=== PATIENT | male | born 1955 | race Caucasian/White ===

== ENCOUNTER 2018-03-01 23:07 | Inpatient (IN) | payer OTHER ==
[2018-03-01] MEDS ORDERED: SODIUM CHLORIDE 0.9% 500 ML 500 ML IV ONE (23:47)
[2018-03-01] MEDS ORDERED: METOCLOPRAMIDE 5 MG/ML 2 ML VIAL IVP STA (23:49)
[2018-03-01] MEDS ORDERED: diphenhydrAMINE 50 MG/ML 1 ML VIAL IVP STA (23:50)
--- NOTE | 2018-03-01 23:53 | ED ---
General Adult HPI - General Chief complaint: Neuro Symptoms/Deficit Stated complaint: Headache Time Seen by Provider: 03/01/18 23:38 Source: patient, EMS, RN notes reviewed, old records reviewed Mode of arrival: EMS Limitations: no limitations - History of Present Illness Initial comments: 62-year-old male with history of previous CVA presents with headache. Patient is accompanied by family members who stays been under a lot of stress and has not been sleeping well. He does have history of stroke and is currently on aspirin and Plavix. He also has chronic headaches which are predominantly left frontal. He has a headache which is left frontal today however more severe than typical. This began at approximately 1900. Gradual in onset. Patient is currently on Depakote, Topamax and medication for blood pressure in addition to his aspirin and Plavix. Denies focal numbness or weakness. Denies nausea vomiting. States he has been eating and drinking normally. No fever. No cough or chest pain. No abdominal pain. Patient is alert and oriented at the time my evaluation. He also states that he has history of congestive heart failure, he is scheduled for heart catheterization in March. Denies any chest pain today or within the last week. - Related Data Allergies Allergy/AdvReac Type Severity Reaction Status Date / Time No Known Allergies Allergy Verified 03/01/18 23:25 Review of Systems ROS Statement: Those systems with pertinent positive or pertinent negative responses have been documented in the HPI. ROS Other: All systems not noted in ROS Statement are negative. Past Medical History Past Medical History: Myocardial Infarction ([place]) Additional Past Medical History / Comment(s): 3 ruptured spine discs, 2 heart stents, stroke. History of Any Multi-Drug Resistant Organisms: None Reported Past Surgical History: No Surgical Hx Reported Smoking Status: Current every day smoker Past Alcohol Use History: Occasional Past Drug Use History: None Reported General Exam Limitations: no limitations General appearance: alert, in no apparent distress Head exam: Present: atraumatic, normocephalic Eye exam: Present: normal appearance, PERRL, EOMI ENT exam: Present: normal exam Neck exam: Present: normal inspection. Absent: tenderness, meningismus Respiratory exam: Present: normal lung sounds bilaterally. Absent: respiratory distress, wheezes Cardiovascular Exam: Present: regular rate, normal rhythm GI/Abdominal exam: Present: soft. Absent: distended, tenderness, guarding Extremities exam: Present: normal inspection, normal capillary refill. Absent: pedal edema Neurological exam: Present: alert, oriented X3, CN II-XII intact, normal gait. Absent: motor sensory deficit Psychiatric exam: Present: normal affect, normal mood Skin exam: Present: warm, dry, intact. Absent: cyanosis, diaphoretic Course Vital Signs 03/01/18 03/02/18 23:10 01:56 Temperature 98.1 F Pulse Rate 69 65 Respiratory 18 19 Rate Blood Pressure 141/85 132/81 O2 Sat by Pulse 97 Oximetry EKG Findings - EKG Comments: EKG Findings:: EKG: Normal sinus rhythm, rate is 64, MS interval 156, QRS duration 86, QTC 470, no ST segment changes. Medical Decision Making - Medical Decision Making 62-year-old male presenting with chief complaint headache patient is well- appearing, stable vitals, normal neurologic exam. He has previous CVA and history of heart failure. He states he is scheduled for heart cath in March. Workup in the emergency is initiated for both headache and cardiac workup. Patient has had CT showing encephalomalacia, unchanged from prior MRI, no acute intracranial abnormality. Patient has leukocytosis 15.9, on certain of the significance of this at this time. As patient was scheduled for heart catheterization and has history of heart failure EKG and troponin is obtained, EKG is nonischemic, troponin is elevated. Patient is clinically not in heart failure x-ray is negative for pulmonary edema or effusion. Patient is informed of this abnormality, he is certain he's had no chest pain over the past one week. Given that the patient is scheduled for heart catheterization in March will keep the patient on hospital for trended enzymes, and cardiology consultation. He will be kept on telemetry. He is started on heparin. - Lab Data Result diagrams: 03/02/18 00:00 03/02/18 00:01 Lab Results 03/02/18 03/02/18 03/02/18 Range/Units 00:00 00:00 00:01 WBC 15.9 H (3.8-10.6) k/uL RBC 4.33 (4.30-5.90) m/uL Hgb 13.8 (13.0-17.5) gm/dL Hct 41.1 (39.0-53.0) % MCV 94.9 (80.0-100.0) fL MCH 32.0 (25.0-35.0) pg MCHC 33.7 (31.0-37.0) g/dL RDW 13.0 (11.5-15.5) % Plt Count 202 (150-450) k/uL Neutrophils % 72 % Lymphocytes % 22 % Monocytes % 4 % Eosinophils % 1 % Basophils % 0 % Neutrophils # 11.4 H (1.3-7.7) k/uL Lymphocytes # 3.5 (1.0-4.8) k/uL Monocytes # 0.7 (0-1.0) k/uL Eosinophils # 0.1 (0-0.7) k/uL Basophils # 0.0 (0-0.2) k/uL PT 9.9 (9.0-12.0) sec INR 0.9 (<1.2) APTT 26.0 (22.0-30.0) sec Sodium (137-145) mmol/L Potassium (3.5-5.1) mmol/L Chloride (98-107) mmol/L Carbon Dioxide (22-30) mmol/L Anion Gap mmol/L BUN (9-20) mg/dL Creatinine (0.66-1.25) mg/dL Est GFR (CKD-EPI)AfAm (>60 ml/min/1.73 sqM) Est GFR (CKD-EPI)NonAf (>60 ml/min/1.73 sqM) Glucose (74-99) mg/dL Calcium (8.4-10.2) mg/dL Total Bilirubin (0.2-1.3) mg/dL AST (17-59) U/L ALT (21-72) U/L Alkaline Phosphatase (38-126) U/L Ammonia (<30) umol/L Total Creatine Kinase 143 (55-170) U/L CK-MB (CK-2) 2.0 (0.0-2.4) ng/mL CK-MB (CK-2) Rel Index 1.4 Troponin I 0.190 H* (0.000-0.034) ng/mL Total Protein (6.3-8.2) g/dL Albumin (3.5-5.0) g/dL Urine Color Urine Appearance (Clear) Urine pH (5.0-8.0) Ur Specific [place] (1.001-1.035) Urine Protein (Negative) Urine Glucose (UA) (Negative) Urine Ketones (Negative) Urine Blood (Negative) Urine Nitrite (Negative) Urine Bilirubin (Negative) Urine Urobilinogen (<2.0) mg/dL Ur Leukocyte Esterase (Negative) Urine RBC (0-5) /hpf Urine WBC (0-5) /hpf Ur Squamous Epith Cells (0-4) /hpf Urine Mucus (None) /hpf Urine Opiates Screen (NotDetected) Ur Oxycodone Screen (NotDetected) Urine Methadone Screen (NotDetected) Ur Propoxyphene Screen (NotDetected) Ur Barbiturates Screen (NotDetected) U Tricyclic Antidepress (NotDetected) Ur Phencyclidine Scrn (NotDetected) Ur Amphetamines Screen (NotDetected) U Methamphetamines Scrn (NotDetected) U Benzodiazepines Scrn (NotDetected) Urine Cocaine Screen (NotDetected) U Marijuana (THC) Screen (NotDetected) Serum Alcohol mg/dL 03/02/18 03/02/18 03/02/18 Range/Units 00:01 00:01 23:50 WBC (3.8-10.6) k/uL RBC (4.30-5.90) m/uL Hgb (13.0-17.5) gm/dL Hct (39.0-53.0) % MCV (80.0-100.0) fL MCH (25.0-35.0) pg MCHC (31.0-37.0) g/dL RDW (11.5-15.5) % Plt Count (150-450) k/uL Neutrophils % % Lymphocytes % % Monocytes % % Eosinophils % % Basophils % % Neutrophils # (1.3-7.7) k/uL Lymphocytes # (1.0-4.8) k/uL Monocytes # (0-1.0) k/uL Eosinophils # (0-0.7) k/uL Basophils # (0-0.2) k/uL PT (9.0-12.0) sec INR (<1.2) APTT (22.0-30.0) sec Sodium 138 (137-145) mmol/L Potassium 3.8 (3.5-5.1) mmol/L Chloride 104 (98-107) mmol/L Carbon Dioxide 23 (22-30) mmol/L Anion Gap 11 mmol/L BUN 18 (9-20) mg/dL Creatinine 0.62 L (0.66-1.25) mg/dL Est GFR (CKD-EPI)AfAm >90 (>60 ml/min/1.73 sqM) Est GFR (CKD-EPI)NonAf >90 (>60 ml/min/1.73 sqM) Glucose 100 H (74-99) mg/dL Calcium 9.2 (8.4-10.2) mg/dL Total Bilirubin 0.5 (0.2-1.3) mg/dL AST 24 (17-59) U/L ALT 31 (21-72) U/L Alkaline Phosphatase 79 (38-126) U/L Ammonia 38 H (<30) umol/L Total Creatine Kinase (55-170) U/L CK-MB (CK-2) (0.0-2.4) ng/mL CK-MB (CK-2) Rel Index Troponin I (0.000-0.034) ng/mL Total Protein 7.0 (6.3-8.2) g/dL Albumin 4.4 (3.5-5.0) g/dL Urine Color Light Yellow Urine Appearance Clear (Clear) Urine pH 7.0 (5.0-8.0) Ur Specific [place] 1.008 (1.001-1.035) Urine Protein Negative (Negative) Urine Glucose (UA) Negative (Negative) Urine Ketones Negative (Negative) Urine Blood Small H (Negative) Urine Nitrite Negative (Negative) Urine Bilirubin Negative (Negative) Urine Urobilinogen <2.0 (<2.0) mg/dL Ur Leukocyte Esterase Negative (Negative) Urine RBC 4 (0-5) /hpf Urine WBC <1 (0-5) /hpf Ur Squamous Epith Cells <1 (0-4) /hpf Urine Mucus Rare H (None) /hpf Urine Opiates Screen Not Detected (NotDetected) Ur Oxycodone Screen Not Detected (NotDetected) Urine Methadone Screen Not Detected (NotDetected) Ur Propoxyphene Screen Not Detected (NotDetected) Ur Barbiturates Screen Not Detected (NotDetected) U Tricyclic Antidepress Not Detected (NotDetected) Ur Phencyclidine Scrn Not Detected (NotDetected) Ur Amphetamines Screen Not Detected (NotDetected) U Methamphetamines Scrn Not Detected (NotDetected) U Benzodiazepines Scrn Not Detected (NotDetected) Urine Cocaine Screen Not Detected (NotDetected) U Marijuana (THC) Screen Not Detected (NotDetected) Serum Alcohol <10 mg/dL Disposition Clinical Impression: Troponin level elevated, Headache Disposition: ADMITTED IP TO THIS [facility] Condition: Stable Is patient prescribed a controlled substance at d/c from ED?: No Referrals: Felipa Weber MD [Primary Care Provider] - 1-2 days Decision to Admit Reason: Admit from EC Decision Date: 03/02/18 Decision Time: 03:22
[2018-03-02 00:26] LABS: Basophils % (A) 0 %; Eosinophils # (A) 0.1 k/uL (0-0.7); Eosinophils % (A) 1 %; HCT 41.1 % (39.0-53.0); HGB 13.8 gm/dL (13.0-17.5); Lymphocytes # (A) 3.5 k/uL (1.0-4.8); Lymphocytes % (A) 22 %; MCHC 33.7 g/dL (31.0-37.0); MCV 94.9 fL (80.0-100.0); Mean Platelet Volume 7.6; Monocytes # (A) 0.7 k/uL (0-1.0); Monocytes % (A) 4 %; Neutrophils # (A) 11.4 k/uL (1.3-7.7); Neutrophils % (A) 72 %; Platelet Count 202 k/uL (150-450); RBC 4.33 m/uL (4.30-5.90); WBC 15.9 k/uL (3.8-10.6)
--- NOTE | 2018-03-02 00:27 | XR ---
EXAMINATION TYPE: XR chest 2V DATE OF EXAM: 03/02/2018 COMPARISON: NONE HISTORY: Dizziness and headache TECHNIQUE: Frontal and lateral views of the chest are obtained. FINDINGS: Heart and mediastinum are normal. Lungs are clear. Diaphragm is normal. Bony thorax is int act. There are chest leads. IMPRESSION: Normal chest
[2018-03-02 00:31] LABS: Appearance,Urine Clear (Clear); Bilirubin,Urine Negative (Negative); Blood,Urine Small (Negative); Color,Urine Light Yellow; Glucose,Urine (UA) Negative (Negative); Ketones,Urine Negative (Negative); Leukocyte Esterase,Urine Negative (Negative); Mucus,Urine Rare /hpf; Nitrite,Urine Negative (Negative); Protein,Urine Negative (Negative); RBC,Urine 4 /hpf (0-5); Specific Gravity,Urine 1.008 (1.001-1.035); Squamous Epithelial Cell,Urine <1 /hpf (0-4); Urobilinogen,Urine <2.0 mg/dL (<2.0); WBC,Urine <1 /hpf (0-5)
[2018-03-02 00:37] LABS: INR 0.9 (<1.2); Prothrombin Time 9.9 sec (9.0-12.0)
[2018-03-02 00:38] LABS: ALT 31 U/L (21-72); AST 24 U/L (17-59); Albumin 4.4 g/dL (3.5-5.0); Alcohol <10 mg/dL; Alkaline Phosphatase 79 U/L (38-126); Anion Gap 11 mmol/L; Blood Urea Nitrogen 18 mg/dL (9-20); Calcium 9.2 mg/dL (8.4-10.2); Carbon Dioxide 23 mmol/L (22-30); Chloride 104 mmol/L (98-107); Glucose 100 mg/dL (74-99); Potassium 3.8 mmol/L (3.5-5.1); Sodium 138 mmol/L (137-145); Total Bilirubin 0.5 mg/dL (0.2-1.3)
--- NOTE | 2018-03-02 00:39 | CT ---
EXAMINATION TYPE: CT brain wo con DATE OF EXAM: 03/02/2018 COMPARISON: None HISTORY: dizziness;headache/AMS CT DLP: 1154.4 mGycm Automated exposure control for dose reduction was used. FINDINGS: There is enlargement of the left sylvian fissure consistent with old encephalomalacia. There is no ma ss effect nor midline shift. There is no sign of intracranial hemorrhage. There is large cavum septum pellucidum which is normal variation. There is subtle 1 cm area of decreased density in the white ma tter right parietal lobe consistent with old lacunar infarct. IMPRESSION: OLD ENCEPHALOMALACIA OF THE ANTERIOR LEFT TEMPORAL LOBE IS UNCHANGED COMPARED TO MR SCAN OF 06/04/2011 . NO ACUTE INTRACRANIAL ABNORMALITY. Brain unchanged compared to old MR scan.
[2018-03-02 00:54] LABS: Amphetamine Screen,Urine Not Detected (NotDetected); Barbiturate Screen,Urine Not Detected (NotDetected); Benzodiazepines Screen,Urine Not Detected (NotDetected); Cocaine Screen,Urine Not Detected (NotDetected); Methadone Screen, Urine Not Detected (NotDetected); Opiate Screen,Urine Not Detected (NotDetected); Oxycodone Screen, Urine Not Detected (NotDetected); Phencyclidine Screen,Urine Not Detected (NotDetected); Tricyclic Antidepressant,Urine Not Detected (NotDetected); Urn Cannabinoid Scrn Not Detected (NotDetected)
[2018-03-02 01:15] LABS: Troponin I 0.19 ng/mL (0.000-0.034)
[2018-03-02] MEDS ORDERED: ASPIRIN 325 MG TAB PO STA (01:28)
[2018-03-02] MEDS ORDERED: HEPARIN SODIUM,PORCINE 5,000 UNIT/ML 1 ML VIAL IV PRN (02:15)
[2018-03-02] MEDS ORDERED: HEPARIN SODIUM,PORCINE 5,000 UNIT/ML 1 ML VIAL IV ONE (02:15)
[2018-03-02] MEDS: HEPARIN SOD,PORK IN 0.45% NACL 25,000 UNIT in 0.45% NACL 1 250ML.BAG IV SCH (02:40)
[2018-03-02] MEDS ORDERED: MORPHINE SULFATE 4 MG/ML SYRINGE IV PRN (03:10)
[2018-03-02] MEDS ORDERED: ONDANSETRON 4 MG/2 ML VIAL IVP PRN (03:10)
[2018-03-02] MEDS ORDERED: NALOXONE 0.4 MG/ML 1 ML VIAL IV PRN (03:10)
[2018-03-02] MEDS: 0.9% NACL WITH KCL 20 MEQ/L 1,000 ML IV SCH (04:32)
[2018-03-02 08:04] LABS: Creatine Kinase MB 1.6 ng/mL (0.0-2.4)
[2018-03-02 08:18] LABS: Troponin I 0.199 ng/mL (0.000-0.034)
[2018-03-02] MEDS: ACETAMINOPHEN TAB 325 MG TAB PO PRN (12:13)
[2018-03-02 14:09] LABS: Creatine Kinase MB 1.4 ng/mL (0.0-2.4)
[2018-03-02 14:13] LABS: Troponin I 0.164 ng/mL (0.000-0.034)
[2018-03-02] MEDS ORDERED: ALPRAZolam 0.25 MG TAB PO PRN (15:11)
[2018-03-02] MEDS ORDERED: SODIUM CHLORIDE 0.9% 1,000 ML in EMPTY BAG 1 BAG IV ONE (15:11)
[2018-03-02] MEDS ORDERED: ALPRAZolam 0.5 MG TAB PO PRN (15:11)
[2018-03-02] MEDS: ATORVASTATIN 80 MG TAB PO SCH ×2 (15:28→22:03)
[2018-03-02] MEDS: ASPIRIN 81 MG PO SCH (15:28)
[2018-03-02] MEDS: ISOSORBIDE MONONITRATE ER 30 MG TAB.ER.24H PO SCH (16:16)
[2018-03-02] MEDS: LISINOPRIL 10 MG TAB PO SCH (16:17)
[2018-03-02] MEDS: HYDROCHLOROTHIAZIDE 25 MG TAB PO SCH (16:17)
[2018-03-02] MEDS: METOPROLOL TARTRATE 25 MG TAB PO SCH (16:17)
[2018-03-02] MEDS: CLOPIDOGREL 75 MG TAB PO SCH (16:17)
[2018-03-02] MEDS ORDERED: LACTULOSE 20 GM/30 ML CUP PO ONE (17:24)
--- NOTE | 2018-03-02 17:47 | P.HPIM ---
History of Present Illness H&P Date: 03/02/18 Chief Complaint: Headache and right jaw droop Patient is a 62-year-old male with a known history of coronary disease with history of stent placement 2, CHF, COPD and history of TIA/CVA with left eye vision problems came to ER with complaints of headache and right-sided jaw drop. Patient was apparently was cooking with his son and suddenly felt weak and went to lie down. While he was coming back from his room he felt very weak and noticed right jaw droop by his son and was also having headache. Patient otherwise denied any chest pain or shortness of breath. Presented to ER for further evaluation. As per his family members patient is under a lot of stress and has not been sleeping very well. Headache is mainly left frontal area. Patient does have previous history of CVA and is having left eye vision problems and movement. Patient also does have migraine headache and is on Depakote at home. Patient does have a history of coronary disease and stent placement. Patient otherwise continues to smoke. No fever no chills. No nausea vomiting or diarrhea. No recent illnesses. Symptoms have resolved by the time he presented to ER. No cough or sputum production. Patient was also diagnosed with congestive heart failure and is scheduled for cardiac catheterization in March as per patient. Chest x-ray showed no acute cardio pulmonary process CT head showed old encephalomalacia of the anterior left temporal lobe is unchanged compared to MRI scan of 06/04/2011. No acute intracranial abnormality. Brain unchanged compared to old MR scan. troponin 0.190, 0.199 and 0.164 WBC 15.9 , ammonia 38, UDS negative. Alcohol level less than 10. EKG showed normal sinus rhythm Review of Systems Constitutional: Patient denies any fever or chills . No generalized weakness or weight loss. Abdomen: Patient denied nausea vomiting and diarrhea and abdominal pain. Cardiovascular: Patient denies any chest pain or short of breath no palpitations. Respiratory: patient denied any cough is from production. No shortness of breath Neurologic: Patient denied any numbness or tingling headache. Musculoskeletal: Patient denies any complaints of joint swelling or deformity. Skin: Negative Psychiatric: Negative Endocrine: No heat or cold intolerance. No recent weight gain. Genitourinary: No dysuria or hematuria. All other 14 point ROS negative except the above Past Medical History Past Medical History: Myocardial Infarction ([place]) Additional Past Medical History / Comment(s): 3 ruptured spine discs, 2 heart stents, stroke. Last Myocardial Infarction Date:: 2002 History of Any Multi-Drug Resistant Organisms: None Reported Past Surgical History: No Surgical Hx Reported Smoking Status: Current every day smoker Past Alcohol Use History: Occasional Past Drug Use History: None Reported Medications and Allergies Home Medications Medication Instructions Recorded Confirmed Type Acetaminophen Tab [Tylenol Tab] 650 mg PO Q4H PRN 03/02/18 03/02/18 History Atorvastatin [Lipitor] 80 mg PO HS 03/02/18 03/02/18 History Divalproex Sodium [Depakote] 500 mg PO BID 03/02/18 03/02/18 History Hydrochlorothiazide [Hydrodiuril] 25 mg PO DAILY 03/02/18 03/02/18 History Isosorbide Mononitrate ER [Imdur] 30 mg PO DAILY 03/02/18 03/02/18 History Lisinopril [Zestril] 10 mg PO DAILY 03/02/18 03/02/18 History Metoprolol Tartrate [Lopressor] 25 mg PO DAILY 03/02/18 03/02/18 History Allergies Allergy/AdvReac Type Severity Reaction Status Date / Time No Known Allergies Allergy Verified 03/01/18 23:25 Physical Exam Vitals: Vital Signs Temp Pulse Pulse Resp BP BP Pulse Ox 03/02/18 11:45 98.1 F 56 L 18 111/68 97 03/02/18 08:19 57 L 17 111/68 96 03/02/18 07:08 56 L 19 104/68 98 03/02/18 05:30 17 03/02/18 01:56 65 19 132/81 03/01/18 23:10 98.1 F 69 18 141/85 97 Intake and Output 03/01/18 03/02/18 03/02/18 22:59 06:59 14:59 Other: Weight 72.575 kg 72.575 kg PHYSICAL EXAMINATION: Patient is lying in the bed comfortably, no acute distress, awake alert and oriented.. HEENT: Normocephalic. Neck is supple. Pupils reactive. Nostrils clear. Oral cavity is moist. Ears reveal no drainage. Neck reveals no JVD, carotid bruits, or thyromegaly. CHEST EXAMINATION: Trachea is central. Symmetrical expansion. Lung duncan clear to auscultation and percussion. CARDIAC: Normal S1, S2 with no gallops. No murmurs ABDOMEN: Soft. Bowel sounds normal. No organomegaly. No abdominal bruits. Extremities: reveal no edema. No clubbing or cyanosis Neurologically awake, alert, oriented x3 with well-coordinated movements. No focal deficits noted Skin: No rash or skin lesions. Psychiatric: Coperative. Nonsuicidal Musculoskeletal: No joint swelling or deformity. Normal range of motion. Results CBC & Chem 7: 03/02/18 00:00 03/02/18 00:01 Labs: Abnormal Lab Results - Last 24 Hours (Table) 03/02/18 03/02/18 03/02/18 Range/Units 00:00 00:01 00:01 WBC 15.9 H (3.8-10.6) k/uL Neutrophils # 11.4 H (1.3-7.7) k/uL APTT (22.0-30.0) sec Creatinine 0.62 L (0.66-1.25) mg/dL Glucose 100 H (74-99) mg/dL Ammonia (<30) umol/L Troponin I 0.190 H* (0.000-0.034) ng/mL Urine Blood (Negative) Urine Mucus (None) /hpf 03/02/18 03/02/18 03/02/18 Range/Units 00:01 06:57 06:57 WBC (3.8-10.6) k/uL Neutrophils # (1.3-7.7) k/uL APTT 59.8 H (22.0-30.0) sec Creatinine (0.66-1.25) mg/dL Glucose (74-99) mg/dL Ammonia (<30) umol/L Troponin I 0.199 H* (0.000-0.034) ng/mL Urine Blood Small H (Negative) Urine Mucus Rare H (None) /hpf 03/02/18 Range/Units 23:50 WBC (3.8-10.6) k/uL Neutrophils # (1.3-7.7) k/uL APTT (22.0-30.0) sec Creatinine (0.66-1.25) mg/dL Glucose (74-99) mg/dL Ammonia 38 H (<30) umol/L Troponin I (0.000-0.034) ng/mL Urine Blood (Negative) Urine Mucus (None) /hpf Assessment and Plan Assessment: Acute non-ST elevated [place] with elevated troponin level. Headache and dizziness. Improved now. CT head is negative for any new changes. History of CVA with a left eye vision issues. Coronary artery disease with stent placement 2 CHF. Ejection fraction unknown. COPD stable Ongoing nicotine addiction DVT prophylaxis. Patient is already on heparin drip Plan: Patient will be continued on aspirin, statins and Lasix. Continue with metoprolol. Patient was started on heparin drip. Continued with telemetry monitoring. No complains of active chest pain at this time. Cardiology is following. Continue with home medications and further recommendations based on the clinical course. Follow-up WBC count. Time with Patient: Greater than 30
--- NOTE | 2018-03-02 20:56 | CONS ---
CONSULTATION This is a 62-year-old gentleman with a known history of previous CVA, came in with mostly headache. He did not have any chest discomfort, but complained of uncomfortable feeling in the chest along with some headache, which was his main presentation. He also complained of some shortness of breath with activity. He has a history of stroke and has been on aspirin and Plavix and chronic headaches is also a known problem for him, but this has decreased normally. In view of his nondescript tightness in the chest and headaches, he was here. After arrival, troponin levels were obtained and the initial troponin level on him was 0.19. A repeat one was in the same range and a third one came down. The patient is known to have CAD with prior intervention more than 8-10 years ago. The details of which are not available and patient is unable to give me meaningful information in this regard. 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 He insists that his main presentation to the hospital was not chest pain but headache, but he also had some chest tightness. His brother was also available at the time of evaluation and he gave some additional history as well. This gentleman does not see a reinforcing iron worker helper on a regular basis and apparently he does see Dr. Weber who is his primary care physician, but he claims that he has not seen a reinforcing iron worker helper recently. PAST MEDICAL HISTORY: 1. CAD with PCI, details unclear. 2. History of CVA on aspirin and Plavix. 3. Hyperlipidemia. 4. Hypertension. MEDICATIONS: At home include Imdur 30 mg daily, HydroDIURIL 25 mg daily, Depakote 500 mg b.i.d., probably for associated seizure disorder, Lipitor 80 mg daily, metoprolol 25 mg daily, lisinopril 10 mg daily. ALLERGIES: None. Apparently this patient also had a CT scan which showed old encephalomalacia of the left anterior temporal lobe which was unchanged compared to the previous scan from 2012. No intracranial abnormalities were detected for headache and by the time I saw him, his headache was actually improved. EXAMINATION: Blood pressure is 112/70, pulse rate is 68 per minute regular. HEENT unremarkable. Fundus was not examined by me. Neck is supple. There is no JVD. I do not hear a carotid bruit. Heart exam reveals S1, S2 heard normally. No significant murmur, rub, or gallop is detected. Lungs are clear. Abdomen is soft, nontender. Lower extremities reveal normal pulses. No edema. Central nervous system is normal EKG revealed a sinus mechanism without acute changes. LABORATORY DATA: Revealed troponins that are showing a downward trend. IMPRESSION: 1. History of cerebrovascular accident, with left temporal area of old encephalomalacia unchanged compared to the previous study without acute intracranial abnormalities on CT scan from today. 2. Atypical chest pain with elevated troponin suggestive of non-ST elevation myocardial infarction in a patient with a prior PCI. 3. Hypertension. 4. Hyperlipidemia. 5. Smoking and chronic obstructive pulmonary disease. RECOMMENDATIONS: I am recommending that we will continue his heparin drip and also his home medications including beta blockers and statins have been resumed. I am recommending coronary angiography. I explained to the patient and his brother rationale, risks, benefits, and options. They understand all details and wished to proceed with the procedure which is scheduled for 7:30 am tomorrow. We will continue all his other medications as before. MMODL / IJN: [id number] /
[2018-03-02] MEDS: DIVALPROEX 500 MG TABLET.DR PO SCH (22:03)
[2018-03-03] MEDS ORDERED: ASPIRIN 325 MG TAB PO ONE (06:00)
[2018-03-03] MEDS ORDERED: ATORVASTATIN 80 MG TAB PO ONE (06:00)
[2018-03-03] MEDS: ASPIRIN 81 MG PO SCH (06:14)
[2018-03-03] MEDS: ISOSORBIDE MONONITRATE ER 30 MG TAB.ER.24H PO SCH (06:15)
[2018-03-03] MEDS: DIVALPROEX 500 MG TABLET.DR PO SCH ×3 (06:15→20:45)
[2018-03-03] MEDS: METOPROLOL TARTRATE 25 MG TAB PO SCH (06:15)
[2018-03-03] MEDS: LISINOPRIL 10 MG TAB PO SCH (06:16)
[2018-03-03] MEDS: CLOPIDOGREL 75 MG TAB PO SCH (06:16)
[2018-03-03] MEDS: HYDROCHLOROTHIAZIDE 25 MG TAB PO SCH (06:16)
[2018-03-03] MEDS: 0.9% NACL WITH KCL 20 MEQ/L 1,000 ML IV SCH ×2 (06:17→20:35)
[2018-03-03 06:50] LABS: Basophils # (A) 0.1 k/uL (0-0.2); Basophils % (A) 1 %; Eosinophils # (A) 0.3 k/uL (0-0.7); Eosinophils % (A) 3 %; HCT 44.2 % (39.0-53.0); HGB 14.1 gm/dL (13.0-17.5); Lymphocytes % (A) 46 %; MCH 31.1 pg (25.0-35.0); MCHC 31.9 g/dL (31.0-37.0); MCV 97.5 fL (80.0-100.0); Mean Platelet Volume 7.4; Monocytes # (A) 0.7 k/uL (0-1.0); Monocytes % (A) 6 %; Neutrophils # (A) 4.7 k/uL (1.3-7.7); Neutrophils % (A) 42 %; Platelet Count 219 k/uL (150-450); RBC 4.53 m/uL (4.30-5.90); WBC 11.1 k/uL (3.8-10.6)
[2018-03-03 07:00] LABS: Lymphocytes # (A) 5.1 k/uL (1.0-4.8)
[2018-03-03] MEDS ORDERED: LIDOCAINE 1% INJ 10MG/ML (20 ML MDV) ONE (07:34)
[2018-03-03] MEDS ORDERED: SODIUM CHLORIDE 0.9% 500 ML 500 ML IV ONE (07:58)
[2018-03-03] MEDS ORDERED: MIDAZOLAM 2 MG/2 ML VIAL IV ONE ×2 (07:58)
--- NOTE | 2018-03-03 08:01 | ECHOF ---
Referral Reason:lv function MEASUREMENTS -------- HEIGHT: 170.2 cm WEIGHT: 72.6 kg BP: 111/68 RVIDd: 3.3 cm (< 3.3) IVSd: 1.2 cm (0.6 - 1.1) LVIDd: 4.5 cm (3.9 - 5.3) LVPWd: 1.2 cm (0.6 - 1.1) IVSs: 1.5 cm LVIDs: 3.1 cm LVPWs: 1.5 cm LA Diam: 3.6 cm (2.7 - 3.8) LAESV Index (A-L): 39.72 ml/m Ao Diam: 3.7 cm (2.0 - 3.7) AV Cusp: 2.1 cm (1.5 - 2.6) EPSS: 0.4 cm MV E Christian: 0.99 m/s MV DecT: 213 ms MV A Christian: 0.85 m/s MV E/A Ratio: 1.17 RAP: 5.00 mmHg RVSP: 26.20 mmHg MV EF SLOPE: 140.29 mm/s (70 - 150) MV EXCURSION: 2.41 cm (> 18.000) FINDINGS -------- Sinus rhythm. This was a technically good study. The left ventricular size is normal. There is borderline concentric left ventricular hypertrophy. Overall left ventricular systolic function is normal with, an EF between 55 - 60 %. The right ventricle is mildly enlarged. LA is moderately dilated 34-39 ml/m2 The right atrial size is normal. The aortic valve is trileaflet, and appears structurally normal. No aortic stenosis or regurgitation. The mitral valve leaflets are mildly thickened. Moderate mitral regurgitation is present. Mild tricuspid regurgitation present. Right ventricular systolic pressure is normal at < 35 mmHg. The right ventricular systolic pressure, as measured by Doppler, is 26.20mmHg. Trace/mild (physiologic) pulmonic regurgitation. The aortic root size is normal. Normal inferior vena cava with normal inspiratory collapse consistent with estimated right atrial pre ssure of 5 mmHg. There is no pericardial effusion. CONCLUSIONS -------- 1. Sinus rhythm. 2. This was a technically good study. 3. The left ventricular size is normal. 4. There is borderline concentric left ventricular hypertrophy. 5. Overall left ventricular systolic function is normal with, an EF between 55 - 60 %. 6. The right ventricle is mildly enlarged. 7. LA is moderately dilated 34-39 ml/m2 8. The aortic valve is trileaflet, and appears structurally normal. No aortic stenosis or regurgitati on. 9. Moderate mitral regurgitation is present. 10. Mild tricuspid regurgitation present. 11. Right ventricular systolic pressure is normal at < 35 mmHg. 12. Trace/mild (physiologic) pulmonic regurgitation. 13. The aortic root size is normal. 14. Normal inferior vena cava with normal inspiratory collapse consistent with estimated right atrial pressure of 5 mmHg. 15. There is no pericardial effusion. SENIOR ACCOUNT CLERK: YOEL Stewart
[2018-03-03] MEDS ORDERED: LIDOCAINE 1% INJ 10MG/ML (20 ML MDV) SQ ONE (08:03)
[2018-03-03] MEDS ORDERED: BIVALIRUDIN BOLUS 250 MG/50 ML IV ONE (08:19)
[2018-03-03] MEDS ORDERED: BIVALIRUDIN 250 MG in SODIUM CHLORIDE 0.9% 50 ML IV ONE (08:20)
[2018-03-03] MEDS ORDERED: IOPAMIDOL-370 100ML BTL INJ ONE ×2 (08:25→08:43)
[2018-03-03] MEDS ORDERED: ROPIVACAINE 1,100 MG, SODIUM CHLORIDE 0.9% 500 ML 330 ML MISCELLANE PRN ×2 (08:26)
[2018-03-03] MEDS: NITROGLYCERIN 1000MCG/10ML SYRINGE INTRACORON ONE ×2 (08:31→08:43)
[2018-03-03] MEDS ORDERED: MORPHINE SULFATE 4 MG/ML SYRINGE ONE (08:50)
[2018-03-03] MEDS ORDERED: MORPHINE SULFATE 4 MG/ML SYRINGE IV ONE (08:56)
[2018-03-03] MEDS ORDERED: CLOPIDOGREL 75 MG TAB ONE (08:58)
[2018-03-03] MEDS ORDERED: CLOPIDOGREL 75 MG TAB PO ONE (08:59)
[2018-03-03] MEDS ORDERED: ATROPINE SULFATE 0.1 MG/ML 10ML SYRINGE IV PRN (09:22)
[2018-03-03] MEDS ORDERED: RX INFO: IV CONTRAST WAS GIVEN 1 EACH MISC MISCELLANE PRN (09:22)
[2018-03-03] MEDS ORDERED: ZOLPIDEM 5 MG TAB PO PRN (09:22)
[2018-03-03] MEDS ORDERED: NITROGLYCERIN SL TABS 0.4 MG TAB SUBLINGUAL PRN (09:22)
[2018-03-03] MEDS ORDERED: MAG HYDROX/AL HYDROX/SIMETH 30 ML CUP PO PRN (09:22)
--- NOTE | 2018-03-03 10:33 | CC ---
CARDIAC CATHETERIZATION REPORT DATE OF SERVICE: 03/03/2018 PROCEDURE: 1. Left heart catheterization and coronary angiography. 2. PTCA and stenting of mid LAD with a drug-eluting stent. PERFORMED BY: Dr. Saritha Sanders. Moderate conscious sedation time was 52 minutes. Patient was administered Versed and his oxygen saturation, hemodynamics and EKG were monitored closely. CLINICAL INFORMATION: Mr. Valdemar Vann is a 62-year-old gentleman with a history of CAD and known RCA PCI performed in 2001. This procedure was performed here at [facility]. Cardiac cath was performed at [facility] and we do not have information on the left-sided pictures. He had 2 bare metal stents at that time. Since then, he has not followed up with us. After that he has suffered from a stroke with left anterior temporal lobe infarct and details of this is unavailable. He has recovered well from this. He has been quite active. He follows up with his PCP, Dr. Weber. He did some hunting and other activities in the fall without issue, but came into the hospital with headache and had nondescript chest pain and troponin elevation. Given his past history and mild troponin elevation, he was advised cardiac catheterization after due discussion regarding risks, benefits, and options with the patient and his brother. PROCEDURE NOTE: Under local anesthesia and strict aseptic precautions, a 6-Angolan introducer was placed in the right femoral artery. Using standard Franki catheters I performed coronary angiography and a pigtail catheter was used to check LV pressures. LV gram was not performed. Following that, I noted that his RCA was totally occluded in the proximal portion at the site of proximal stent. This was stented in 2001. He also he had a mid LAD of the stenosis of 75% beyond which the distal LAD was totally occluded with late reconstitution. The total occlusion appeared to be chronic. He was advised intervention of this vessel and I performed this in the same setting. I used a JL3.5 guide catheter to cannulate the left coronary artery and a run-through wire was used to cross the mid lesion. I could not cross the total occlusion after multiple attempts even with the assistance of a 2.25 caliber 8 mm Trek balloon. I therefore decided only to dilate the 70% to 80% lesion located in the mid LAD. This was dilated with a 2.25 caliber 8 mm Trek balloon and I then deployed a 2.5 caliber 8 mm Xience stent at 11 atmospheres. Patient did not have any significant symptoms, but had precordial ST segment mild elevation especially of the J-point. Excellent angiographic result was achieved. The distal flow also improved to some extent, but the total occlusion in the distal LAD persisted. Patient received Angiomax bolus and infusion and he also received an additional 300 mg of Plavix. Results were discussed with the patient but there was no other family members available. The sheath was taken out and a Perclose device used to secure hemostasis and he was not sent to the room in a stable condition. CARDIAC CATHETERIZATION FINDINGS: The left ventricle end-diastolic pressure was about 4 to 6 mmHg. There was no gradient across the aortic valve. CORONARY ANGIOGRAPHY FINDINGS: RIGHT CORONARY ARTERY: This vessel is totally occluded in the proximal portion without much antegrade flow. This vessel was stented in 2001. LEFT MAIN CORONARY ARTERY: This is a short patent vessel free of significant disease that bifurcates into LAD and circumflex. Left main itself is free of significant disease. LEFT ANTERIOR DESCENDING CORONARY ARTERY: Good caliber vessel extends along the anterior wall. In the LAD, there are areas of 20% to 30% narrowing. It gives off a septal branch, a good-sized diagonal branch and then the caliber decreases. After the diagonal branch, there is an area of about 70% stenosis within the LAD after which the vessel is then totally occluded in the distal one-fourth of the vessel is total occlusion with which fills very late. There is a 70% mid lesion and a total occlusion the distal LAD. The diagonal branch is free of significant disease, has minor irregularities. LEFT POSTERIOR CIRCUMFLEX CORONARY ARTERY: Technically nondominant vessel gives off a high obtuse marginal that has a 30% to 40% narrowing and then runs in the AV groove and gives a small posterolateral branch. The AV groove branch provides rich network of collaterals to the distal branches of the RCA. The LAD also provides collaterals, but most of the collateral seemed to be coming from the circumflex system supplying the distal main trunk of the RCA as well as the 2 branches of RCA which have mild diffuse disease. LEFT VENTRICULOGRAM: Left ventriculogram was not performed. FINAL IMPRESSION: This patient has a total occlusion of right coronary artery and total occlusion of distal left anterior descending artery, but the mid left anterior descending artery has a 70% lesion. Circumflex is free of significant disease. There is a rich network of collaterals opacifying the distal branches of the right coronary artery. Left ventriculogram was not performed, but by echocardiogram, his ejection fraction was well preserved. Filling pressures are somewhat low. There is no gradient across the aortic valve. I proceeded to perform PCI of mid LAD, but could not cross the total occlusion of the distal LAD. Excellent angiographic result was achieved and a drug-eluting 2.5 caliber 8 mm Xience stent was deployed. Results were discussed with the patient. ANIL / JOSEN: [id number] /
--- NOTE | 2018-03-03 10:39 | LTR ---
March 03, 2018 Re: Valdemar Vann Dear Dr. Weber: Thank you for the opportunity to participate in the care of Mr. Valdemar Vann. Please find enclosed my detailed cardiac cath and PCI report for your records. This gentleman has a total occlusion of distal LAD, which could not be opened. The mid LAD had a 70% to 80% lesion. This was addressed with a drug-eluting stent with excellent result. He also has a total occlusion of the RCA that was stented in 2001. The patient obviously is not following any risk factor modification issues. He continues to smoke heavily. I have advised him regarding smoking cessation and he should be on dual antiplatelet therapy without stopping for at least 1 year. Advised smoking cessation, risk factor modification and I expect the patient to be discharged tomorrow. Thank you for your referral and please call for questions. With kindest regards. Sincerely yours, MD EZ PelayoL / JOSEN: [id number] /
[2018-03-03 13:32] VITALS: BMI 25.5
--- NOTE | 2018-03-03 18:51 | PN ---
PROGRESS NOTE Mr. Vann underwent a cardiac cath which revealed a total occlusion of RCA. He also has a significant disease in mid LAD total occlusion of distal LAD. Mid LAD was stented with a drug-eluting stent. He is doing well. Right groin is clean and dry. Vital signs stable. S1-S2 are normal. Lungs are clear. Abdomen and lower extremity exam unchanged. Plan is to continue dual antiplatelet therapy, statins and possible discharge tomorrow. However, I have counseled the patient regarding the need to quit smoking. The patient is going to work on this. MMODL / IJN: [id number] /
[2018-03-03] MEDS: SODIUM CHLORIDE 0.9% 1,000 ML IV SCH ×2 (20:35→23:43)
[2018-03-03] MEDS: ACETAMINOPHEN TAB 325 MG TAB PO PRN (20:45)
[2018-03-03] MEDS ORDERED: LISINOPRIL 5 MG TAB PO SCH (21:00)
--- NOTE | 2018-03-03 23:39 | P.PN ---
Subjective Patient is a 62-year-old male with a known history of coronary disease with history of stent placement 2, CHF, COPD and history of TIA/CVA with left eye vision problems came to ER with complaints of headache and right-sided jaw drop. Patient was apparently was cooking with his son and suddenly felt weak and went to lie down. While he was coming back from his room he felt very weak and noticed right jaw droop by his son and was also having headache. Patient otherwise denied any chest pain or shortness of breath. Presented to ER for further evaluation. As per his family members patient is under a lot of stress and has not been sleeping very well. Headache is mainly left frontal area. Patient does have previous history of CVA and is having left eye vision problems and movement. Patient also does have migraine headache and is on Depakote at home. Patient does have a history of coronary disease and stent placement. Patient otherwise continues to smoke. No fever no chills. No nausea vomiting or diarrhea. No recent illnesses. Symptoms have resolved by the time he presented to ER. No cough or sputum production. Patient was also diagnosed with congestive heart failure and is scheduled for cardiac catheterization in March as per patient. Chest x-ray showed no acute cardio pulmonary process CT head showed old encephalomalacia of the anterior left temporal lobe is unchanged compared to MRI scan of 06/04/2011. No acute intracranial abnormality. Brain unchanged compared to old MR scan. troponin 0.190, 0.199 and 0.164 WBC 15.9 , ammonia 38, UDS negative. Alcohol level less than 10. EKG showed normal sinus rhythm 03/03/18 pt is status post cardiac cath and stenting , he denies chest pain or dyspnea , no abd complaints , no urinary symptoms. pt feels better generally , cardiology team are following, pt is still smoking prior to admission to the hospital , he was counseled about risk with recommendation to quit Objective - Vital Signs Vital signs: Vital Signs Temp 97.7 F 03/03/18 15:45 Pulse 63 03/03/18 15:45 Resp 16 03/03/18 15:45 BP 107/56 03/03/18 15:45 Pulse Ox 98 03/03/18 15:45 Intake & Output 03/03/18 03/03/18 03/04/18 06:59 18:59 06:59 Intake Total 1624.7 Output Total 300 Balance 1324.7 Weight 74.1 kg 74.1 kg Intake: IV 424.7 Intake, IV Titration 60 Amount Sodium Chloride 0.9% 1, 60 000 ml @ 75 mls/hr IV . [id number] [facility] Rx#:[id number] Oral 1140 Output: Urine 300 Other: # Voids 1 1 # Emeses 1 - Exam GENERAL: The patient is alert and oriented x3, not in any acute distress. Well developed, well nourished. HEENT: Pupils are round and equally reacting to light. EOMI. No scleral icterus. No conjunctival pallor. Normocephalic, atraumatic. No pharyngeal erythema. No thyromegaly. CARDIOVASCULAR: S1 and S2 present. No murmurs, rubs, or gallops. PULMONARY: Chest is clear to auscultation, no wheezing or crackles. ABDOMEN: Soft, nontender, nondistended, normoactive bowel sounds. No palpable organomegaly. MUSCULOSKELETAL: No joint swelling or deformity. EXTREMITIES: No cyanosis, clubbing, or pedal edema. NEUROLOGICAL: Gross neurological examination did not reveal any focal deficits. SKIN: No rashes. - Labs CBC & Chem 7: 03/03/18 05:47 03/02/18 00:01 Labs: Abnormal Lab Results - Last 24 Hours (Table) 03/03/18 03/03/18 Range/Units 05:47 05:47 WBC 11.1 H (3.8-10.6) k/uL Lymphocytes # 5.1 H (1.0-4.8) k/uL APTT 34.7 H (22.0-30.0) sec Assessment and Plan Assessment: Acute non-ST elevated TX with elevated troponin level. Headache and dizziness. Improved now. CT head is negative for any new changes. History of CVA with a left eye vision issues. Coronary artery disease with stent placement 2 CHF. Ejection fraction unknown. COPD stable Ongoing nicotine addiction DVT prophylaxis. Patient is already on heparin drip Plan: Patient will be continued on aspirin, statins and Lasix. Continue with metoprolol. heparin drip was dc and started on sc heparin. Continued with telemetry monitoring. No complains of active chest pain at this time. Cardiology is following. Continue with home medications and further recommendations based on the clinical course. Follow-up WBC count.
[2018-03-03] MEDS: HEPARIN SOD,PORK IN 0.45% NACL 25,000 UNIT in 0.45% NACL 1 250ML.BAG IV SCH (23:46)
[2018-03-04 03:50] VITALS: RESP 16
[2018-03-04 08:19] LABS: Anion Gap 7 mmol/L; Blood Urea Nitrogen 16 mg/dL (9-20); Calcium 8.8 mg/dL (8.4-10.2); Carbon Dioxide 27 mmol/L (22-30); Chloride 103 mmol/L (98-107); Glucose 84 mg/dL (74-99); Potassium 4.1 mmol/L (3.5-5.1); Sodium 137 mmol/L (137-145)
[2018-03-04 08:30] LABS: Basophils % (A) 0 %; Eosinophils # (A) 0.4 k/uL (0-0.7); Eosinophils % (A) 3 %; HCT 37.1 % (39.0-53.0); HGB 12.5 gm/dL (13.0-17.5); Lymphocytes # (A) 3.3 k/uL (1.0-4.8); Lymphocytes % (A) 29 %; MCH 31.9 pg (25.0-35.0); MCHC 33.6 g/dL (31.0-37.0); MCV 94.9 fL (80.0-100.0); Mean Platelet Volume 7.3; Monocytes # (A) 0.6 k/uL (0-1.0); Monocytes % (A) 5 %; Neutrophils % (A) 61 %; Platelet Count 172 k/uL (150-450); RBC 3.91 m/uL (4.30-5.90); RDW 12.8 % (11.5-15.5); WBC 11.4 k/uL (3.8-10.6)
[2018-03-04] MEDS ORDERED: METOPROLOL TARTRATE 12.5 MG TAB PO SCH (09:00)
[2018-03-04] MEDS: HEPARIN SODIUM,PORCINE 5,000 UNIT/ML 1 ML VIAL SQ SCH ×3 (09:17→09:23)
[2018-03-04] MEDS: ISOSORBIDE MONONITRATE ER 30 MG TAB.ER.24H PO SCH (09:17)
[2018-03-04] MEDS: HYDROCHLOROTHIAZIDE 25 MG TAB PO SCH (09:17)
[2018-03-04] MEDS: CLOPIDOGREL 75 MG TAB PO SCH (09:17)
[2018-03-04] MEDS: DIVALPROEX 500 MG TABLET.DR PO SCH (09:17)
--- NOTE | 2018-03-04 10:00 | P.DS ---
Providers Date of admission: 03/02/18 03:10 Attending physician: Abi Agrawal Consults: 03/02/18 03:11 Consult Physician Routine Consulting Provider: Yosvany Alves Consult Reason/Comments: Troponin elevation, scheduled for heart cath in March Do you want consulting provider notified?: Yes 03/03/18 09:22 Consult Physician Routine Consulting Provider: [facility] [place] Consult Reason/Comments: Post Interventional patient Do you want consulting provider notified?: Already Contacted Primary care physician: Felipa [facility] Course: Patient is a 62-year-old male with a known history of coronary disease with history of stent placement 2, CHF, COPD and history of TIA/CVA with left eye vision problems came to ER with complaints of headache and right-sided jaw drop. Associated with generalized weakness. Which are or so now however when he was in the emergency room patient was noticed to have elevated troponins at 0.19-0.11. Patient has been evaluated by weblogic developer team and he underwent cardiac cath which revealed a total occlusion of RCA. Also he has significant disease in the mid LAD and total occlusion of the distal LAD. Patient had a stent placed on his LAD. Patient cleared by cardiology for discharge on medication including dual antiplatelet therapy, statin . On the day of discharge patient feeling well. No chest pain or dyspnea. No headache or blurred vision. No problems with his shoulder troponin Jaw. No change in his urine or bowel habits. No fever. Patient feels ready to go home and he was wondering around in the room where an outside without difficulty. Problems and management plan was discussed with the patient. Patient was found stable and can be discharged home however he needs follow-up as an outpatient. physical exam Gen.: Patient alert awake and oriented X 3, NOT IN DISTRESS CVS: s1-s2, RRR, no murmur CHEST:bilateral CTA, no wheezing or crepitation Abdomen: Soft, no tenderness, no distention, positive bowel sounds Extremities: No leg edema or induration. Catheter site wound is clean and healing Time spent more than 35 minutes Patient Condition at Discharge: Stable Plan - Discharge Summary New Discharge Prescriptions: New Aspirin 81 mg PO DAILY #30 chew Clopidogrel [Plavix] 75 mg PO DAILY #30 tab Lisinopril [Zestril] 5 mg PO HS #30 tab Metoprolol Tartrate [Lopressor] 12.5 mg PO DAILY #30 tab Nitroglycerin Sl Tabs [Nitrostat] 0.4 mg SUBLINGUAL Q5M PRN #15 tab PRN Reason: Chest Pain Continue Isosorbide Mononitrate ER [Imdur] 30 mg PO DAILY Hydrochlorothiazide [Hydrodiuril] 25 mg PO DAILY Divalproex Sodium [Depakote] 500 mg PO BID Atorvastatin [Lipitor] 80 mg PO HS Acetaminophen Tab [Tylenol] 650 mg PO Q4H PRN PRN Reason: Pain Discontinued Metoprolol Tartrate [Lopressor] 25 mg PO DAILY Lisinopril [Zestril] 10 mg PO DAILY Discharge Medication List Acetaminophen Tab [Tylenol] 650 mg PO Q4H PRN 03/02/18 [History] Atorvastatin [Lipitor] 80 mg PO HS 03/02/18 [History] Divalproex Sodium [Depakote] 500 mg PO BID 03/02/18 [History] Hydrochlorothiazide [Hydrodiuril] 25 mg PO DAILY 03/02/18 [History] Isosorbide Mononitrate ER [Imdur] 30 mg PO DAILY 03/02/18 [History] Aspirin 81 mg PO DAILY #30 chew 03/04/18 [Rx] Clopidogrel [Plavix] 75 mg PO DAILY #30 tab 03/04/18 [Rx] Lisinopril [Zestril] 5 mg PO HS #30 tab 03/04/18 [Rx] Metoprolol Tartrate [Lopressor] 12.5 mg PO DAILY #30 tab 03/04/18 [Rx] Nitroglycerin Sl Tabs [Nitrostat] 0.4 mg SUBLINGUAL Q5M PRN #15 tab 03/04/18 [Rx ] Follow up Appointment(s)/Referral(s): Sid Sanders MD [STAFF PHYSICIAN] - 03/09/18 1:30 pm (Wednesday) Felipa Weber MD [Primary Care Provider] - 03/08/18 3:15 pm (Wednesday we recommend to check your blood with your doctor including your white cell count (WBC)) Patient Instructions/Handouts: *Surgery [facility] - After Heart Catheterization - [employer]rain [employer] Instructions, Left Heart Catheterization (DC), Heart Healthy Diet (DC) Activity/Diet/Wound Care/Special Instructions: Cardiac diet Activity is limited till you see your doctor Discharge Disposition: HOME SELF-CARE
[2018-03-04 10:13] VITALS: BP 110/69; PULSE 58; TEMP 97.7
--- NOTE | 2018-03-04 15:37 | PN ---
PROGRESS NOTE Mr. Vann is a gentleman who underwent stenting of mid LAD performed by me yesterday with a drug-eluting stent. This morning he is doing well, asymptomatic. Right groin is clean and dry. Vitals are stable. His labs are good. EKG is unremarkable. He will be discharged on dual antiplatelet therapy, statins and beta blockers. Discharge instructions were given. He was counseled regarding the need to work with smoking cessation. Physical exam does not reveal any significant findings. Right groin is clean and dry with a good pulse. S1, S2 heard normally. Lungs are clear. Abdomen is soft, nontender. Lower extremities reveal palpable pulses. No edema. Central nervous system is normal. MMODL / IJN: [id number] /
== END 2018-03-04 13:19 | disposition home or self-care (01) | DRG 247 ==
LOC: EC 23:07 → 3SCARD 03-02 03:10
PROVIDERS: ADMIT Hospitalist; ATTEND Hospitalist
PROC: B2111ZZ Fluoroscopy of Multiple Coronary Arteries using Low Osmolar Contrast (ICD-10-PCS; 2018-03-03)
PROC: 027034Z Dilation of Coronary Artery, One Artery with Drug-eluting Intraluminal Device, Percutaneous Approach (ICD-10-PCS; principal; 2018-03-03 07:30)
PROC: 4A023N7 Measurement of Cardiac Sampling and Pressure, Left Heart, Percutaneous Approach (ICD-10-PCS; 2018-03-03 07:30)
DX: I21.4 Non-ST elevation (NSTEMI) myocardial infarction (principal); I25.10 Atherosclerotic heart disease of native coronary artery without angina pectoris; D72.829 Elevated white blood cell count, unspecified; E78.5 Hyperlipidemia, unspecified; I50.9 Heart failure, unspecified; J44.9 Chronic obstructive pulmonary disease, unspecified; F17.200 Nicotine dependence, unspecified, uncomplicated; G43.909 Migraine, unspecified, not intractable, without status migrainosus; I11.0 Hypertensive heart disease with heart failure; Z95.5 Presence of coronary angioplasty implant and graft; I25.2 Old myocardial infarction; Z79.02 Long term (current) use of antithrombotics/antiplatelets; Z79.82 Long term (current) use of aspirin; Z79.899 Other long term (current) drug therapy; Z86.73 Personal history of transient ischemic attack (TIA), and cerebral infarction without residual deficits; Z71.6 Tobacco abuse counseling
CPT/HCPCS: 36415; 70450; 71046; 80048; 80053; 80306; 80320; 81001; 82140; 82550; 82553; 84132; 84484; 85025; 85610; 85730; 93005; 93306; 93458; 96365; 96366; 96368; 96375; 96376; 99285; C1874

== ENCOUNTER 2018-12-13 18:41 | Inpatient (IN) | payer MEDICARE, OTHER ==
[2018-12-13] MEDS ORDERED: IPRATROPIUM-ALBUTEROL 3 ML NEB INHALATION STA (19:13)
[2018-12-13] MEDS ORDERED: SODIUM CHLORIDE 0.9% 1,000 ML IV STA (19:13)
--- NOTE | 2018-12-13 19:22 | ED ---
SOB HPI - General Chief Complaint: Chest Pain Stated Complaint: chest pain Time Seen by Provider: 12/13/18 18:54 Source: patient, RN notes reviewed, old records reviewed Mode of arrival: ambulatory Limitations: no limitations - History of Present Illness Initial Comments: This is a 63-year-old male the ER for evaluation patient resents today for evaluation of cough and chest pain with deep breath increased cough and congestion coughing up mucus. Patient has history of chronic bronchitis is taking inhaler but has not been helping. No recent travel history no recent significant sick contacts. No fevers. No recent travel history patient does have history of stent placement: Feels much different than this, patient's eye swelling of lower extremities. No recent other changes in medication. MD Complaint: shortness of breath, cough, pain with inspiration -: days(s) Severity: mild Severity scale (1-10): 3 Quality: aching Improves With: nothing Worsens With: nothing Known History Of: COPD Context: recent URI Associated Symptoms: chest pain Treatments Prior to Arrival: none - Related Data Home Medications Medication Instructions Recorded Confirmed Acetaminophen Tab [Tylenol] 650 mg PO Q4H PRN 03/02/18 12/13/18 Atorvastatin [Lipitor] 80 mg PO HS 03/02/18 12/13/18 Divalproex Sodium [Depakote] 500 mg PO HS 03/02/18 12/13/18 Hydrochlorothiazide [Hydrodiuril] 25 mg PO DAILY 03/02/18 12/13/18 Isosorbide Mononitrate ER [Imdur] 30 mg PO DAILY 03/02/18 12/13/18 Aspirin 81 mg PO Q48H 12/13/18 12/13/18 Previous Rx's Medication Instructions Recorded Clopidogrel [Plavix] 75 mg PO DAILY #30 tab 03/04/18 Lisinopril [Zestril] 5 mg PO HS #30 tab 03/04/18 Metoprolol Tartrate [Lopressor] 12.5 mg PO DAILY #30 tab 03/04/18 Nitroglycerin Sl Tabs [Nitrostat] 0.4 mg SUBLINGUAL Q5M PRN #15 tab 03/04/18 Allergies Allergy/AdvReac Type Severity Reaction Status Date / Time No Known Allergies Allergy Verified 12/13/18 20:01 Review of Systems ROS Statement: Those systems with pertinent positive or pertinent negative responses have been documented in the HPI. ROS Other: All systems not noted in ROS Statement are negative. Past Medical History Past Medical History: Myocardial Infarction ([place]) Additional Past Medical History / Comment(s): 3 ruptured spine discs, 2 heart stents, stroke. Last Myocardial Infarction Date:: 2002 History of Any Multi-Drug Resistant Organisms: None Reported Past Surgical History: No Surgical Hx Reported Past Psychological History: No Psychological Hx Reported Smoking Status: Current every day smoker Past Alcohol Use History: Occasional Past Drug Use History: Marijuana General Exam Limitations: no limitations General appearance: alert, in no apparent distress Head exam: Present: atraumatic, normocephalic, normal inspection Eye exam: Present: normal appearance, EOMI. Absent: scleral icterus, co njunctival injection, periorbital swelling ENT exam: Present: normal exam, mucous membranes moist Neck exam: Present: normal inspection. Absent: tenderness, meningismus, lymphadenopathy Respiratory exam: Present: normal lung sounds bilaterally. Absent: respiratory distress, wheezes, rales, rhonchi, stridor Cardiovascular Exam: Present: regular rate, normal rhythm, normal heart sounds. Absent: systolic murmur, diastolic murmur, rubs, gallop, clicks GI/Abdominal exam: Present: soft, normal bowel sounds. Absent: distended, tenderness, guarding, rebound, rigid Extremities exam: Present: normal inspection, full ROM, normal capillary refill. Absent: tenderness, pedal edema, joint swelling, calf tenderness Back exam: Present: normal inspection Neurological exam: Present: alert, oriented X3, CN II-XII intact Psychiatric exam: Present: normal affect, normal mood Skin exam: Present: warm, dry, intact, normal color. Absent: rash Course Vital Signs 12/13/18 12/13/18 12/13/18 18:50 19:58 20:07 Temperature 97.8 F Pulse Rate 92 96 93 Respiratory 18 Rate Blood Pressure 145/82 O2 Sat by Pulse 98 Oximetry 12/13/18 12/13/18 20:37 20:54 Temperature Pulse Rate 91 98 Respiratory 18 18 Rate Blood Pressure 121/70 153/84 O2 Sat by Pulse 98 97 Oximetry - Reevaluation(s) Reevaluation #1: 12/13/18 21:10 record is reviewed Reevaluation #2: 12/13/18 21:10 She not feeling well, heart is racing Medical Decision Making - Medical Decision Making 63 male the ER for evaluation patient is shortness of breath A. fib with RVR and bronchitis. Patient be admitted for cardiology evaluation - Lab Data Result diagrams: 12/13/18 19:25 12/13/18 19:25 Lab Results 12/13/18 12/13/18 12/13/18 Range/Units 19:25 19:25 19:25 WBC 11.2 H (3.8-10.6) k/uL RBC 4.51 (4.30-5.90) m/uL Hgb 14.9 (13.0-17.5) gm/dL Hct 42.6 (39.0-53.0) % MCV 94.3 (80.0-100.0) fL MCH 33.1 (25.0-35.0) pg MCHC 35.0 (31.0-37.0) g/dL RDW 14.8 (11.5-15.5) % Plt Count 228 (150-450) k/uL Neutrophils % 80 % Lymphocytes % 14 % Monocytes % 4 % Eosinophils % 1 % Basophils % 0 % Neutrophils # 9.0 H (1.3-7.7) k/uL Lymphocytes # 1.6 (1.0-4.8) k/uL Monocytes # 0.4 (0-1.0) k/uL Eosinophils # 0.1 (0-0.7) k/uL Basophils # 0.0 (0-0.2) k/uL PT 10.0 (9.0-12.0) sec INR 0.9 (<1.2) APTT 23.9 (22.0-30.0) sec D-Dimer 0.39 (<0.60) mg/L FEU Sodium 139 (137-145) mmol/L Potassium 4.5 (3.5-5.1) mmol/L Chloride 99 (98-107) mmol/L Carbon Dioxide 28 (22-30) mmol/L Anion Gap 12 mmol/L BUN 24 H (9-20) mg/dL Creatinine 0.88 (0.66-1.25) mg/dL Est GFR (CKD-EPI)AfAm >90 (>60 ml/min/1.73 sqM) Est GFR (CKD-EPI)NonAf >90 (>60 ml/min/1.73 sqM) Glucose 119 H (74-99) mg/dL Calcium 9.6 (8.4-10.2) mg/dL Magnesium 2.1 (1.6-2.3) mg/dL Total Bilirubin 0.6 (0.2-1.3) mg/dL AST 23 (17-59) U/L ALT 17 L (21-72) U/L Alkaline Phosphatase 75 (38-126) U/L Ammonia (<30) umol/L Troponin I (0.000-0.034) ng/mL NT-Pro-B Natriuret Pep pg/mL Total Protein 7.6 (6.3-8.2) g/dL Albumin 4.7 (3.5-5.0) g/dL 12/13/18 12/13/18 12/13/18 Range/Units 19:25 19:25 19:25 WBC (3.8-10.6) k/uL RBC (4.30-5.90) m/uL Hgb (13.0-17.5) gm/dL Hct (39.0-53.0) % MCV (80.0-100.0) fL MCH (25.0-35.0) pg MCHC (31.0-37.0) g/dL RDW (11.5-15.5) % Plt Count (150-450) k/uL Neutrophils % % Lymphocytes % % Monocytes % % Eosinophils % % Basophils % % Neutrophils # (1.3-7.7) k/uL Lymphocytes # (1.0-4.8) k/uL Monocytes # (0-1.0) k/uL Eosinophils # (0-0.7) k/uL Basophils # (0-0.2) k/uL PT (9.0-12.0) sec INR (<1.2) APTT (22.0-30.0) sec D-Dimer (<0.60) mg/L FEU Sodium (137-145) mmol/L Potassium (3.5-5.1) mmol/L Chloride (98-107) mmol/L Carbon Dioxide (22-30) mmol/L Anion Gap mmol/L BUN (9-20) mg/dL Creatinine (0.66-1.25) mg/dL Est GFR (CKD-EPI)AfAm (>60 ml/min/1.73 sqM) Est GFR (CKD-EPI)NonAf (>60 ml/min/1.73 sqM) Glucose (74-99) mg/dL Calcium (8.4-10.2) mg/dL Magnesium (1.6-2.3) mg/dL Total Bilirubin (0.2-1.3) mg/dL AST (17-59) U/L ALT (21-72) U/L Alkaline Phosphatase (38-126) U/L Ammonia <9 (<30) umol/L Troponin I <0.012 (0.000-0.034) ng/mL NT-Pro-B Natriuret Pep 720 pg/mL Total Protein (6.3-8.2) g/dL Albumin (3.5-5.0) g/dL - EKG Data -: EKG Interpreted by Me (EKG shows A. fib rate of 89, QRS 82, QTc 442) - Radiology Data Radiology results: report reviewed (Chest x-rays negative for acute disease), image reviewed Critical Care Time Critical Care Time: Yes Total Critical Care Time: 31 Disposition Clinical Impression: Acute bronchitis, Atrial fibrillation with RVR Disposition: ADMITTED IP TO THIS HOSP Condition: Fair Is patient prescribed a controlled substance at d/c from ED?: No Referrals: Felipa Weber MD [Primary Care Provider] - 1-2 days
[2018-12-13 19:41] LABS: Basophils % (A) 0 %; Eosinophils # (A) 0.1 k/uL (0-0.7); Eosinophils % (A) 1 %; HCT 42.6 % (39.0-53.0); HGB 14.9 gm/dL (13.0-17.5); Lymphocytes # (A) 1.6 k/uL (1.0-4.8); Lymphocytes % (A) 14 %; MCH 33.1 pg (25.0-35.0); MCV 94.3 fL (80.0-100.0); Mean Platelet Volume 7.6; Monocytes # (A) 0.4 k/uL (0-1.0); Monocytes % (A) 4 %; Neutrophils % (A) 80 %; Platelet Count 228 k/uL (150-450); RBC 4.51 m/uL (4.30-5.90); RDW 14.8 % (11.5-15.5); WBC 11.2 k/uL (3.8-10.6)
[2018-12-13 19:54] LABS: ALT 17 U/L (21-72); AST 23 U/L (17-59); African American GFR (CKD) >90 (>60 ml/min/1.73 sqM); Albumin 4.7 g/dL (3.5-5.0); Alkaline Phosphatase 75 U/L (38-126); Anion Gap 12 mmol/L; Blood Urea Nitrogen 24 mg/dL (9-20); Calcium 9.6 mg/dL (8.4-10.2); Carbon Dioxide 28 mmol/L (22-30); Chloride 99 mmol/L (98-107); D-Dimer 0.39 mg/L FEU (<0.60); Glucose 119 mg/dL (74-99); INR 0.9 (<1.2); Magnesium 2.1 mg/dL (1.6-2.3); Partial Thromboplastin Time 23.9 sec (22.0-30.0); Potassium 4.5 mmol/L (3.5-5.1); Sodium 139 mmol/L (137-145); Total Bilirubin 0.6 mg/dL (0.2-1.3); Total Protein 7.6 g/dL (6.3-8.2)
[2018-12-13] MEDS ORDERED: DEXAMETHASONE SOD PHOSPHATE 10 MG/ML 1 ML VIAL IV STA (20:17)
--- NOTE | 2018-12-13 20:58 | XR ---
EXAMINATION: XR chest 2V DATE AND TIME: 12/13/2018 8:15 PM CLINICAL INDICATION: PHH; difficulty breathing TECHNIQUE: Departmental protocol COMPARISON: 03/02/2018 FINDINGS: The lungs are clear. The pleural spaces are negative. The cardiac silhouette is not enlarged. The remainder of the mediastinal silhouette is unremarkable. The skeletal structures and soft tissues are negative for acute findings. IMPRESSION: NO ACUTE PROCESS.
[2018-12-13] MEDS ORDERED: NITROGLYCERIN SL TABS 0.4 MG TAB SUBLINGUAL PRN (21:07)
[2018-12-13] MEDS ORDERED: DILTIAZEM DRIP BOLUS FROM BAG 1 MG SOLN IV ONE (21:07)
[2018-12-13] MEDS ORDERED: DILTIAZEM 125 MG in SODIUM CHLORIDE 0.9% 100 ML IV SCH (21:15)
[2018-12-13] MEDS ORDERED: HEPARIN SODIUM,PORCINE 5,000 UNIT/ML 1 ML VIAL IV ONE (21:43)
[2018-12-13] MEDS ORDERED: HEPARIN SODIUM,PORCINE 5,000 UNIT/ML 1 ML VIAL IV PRN (21:43)
[2018-12-13] MEDS: HEPARIN SOD,PORK IN 0.45% NACL 25,000 UNIT in 0.45% NACL 1 250ML.BAG IV SCH ×2 (22:23→23:26)
[2018-12-13] MEDS: DIAZEPAM 5 MG/ML 2 ML INJ IVP STA ×2 (22:26→22:29)
[2018-12-13] MEDS: SODIUM CHLORIDE 0.9% 1,000 ML IV SCH (22:27)
[2018-12-14] MEDS: DIVALPROEX 500 MG TABLET.DR PO SCH ×2 (01:20→22:20)
[2018-12-14 07:21] LABS: Basophils % (A) 0 %; Eosinophils # (A) 0.1 k/uL (0-0.7); Eosinophils % (A) 1 %; HCT 38.8 % (39.0-53.0); HGB 13.8 gm/dL (13.0-17.5); Lymphocytes # (A) 1.5 k/uL (1.0-4.8); Lymphocytes % (A) 17 %; MCH 33.5 pg (25.0-35.0); MCHC 35.6 g/dL (31.0-37.0); MCV 94.1 fL (80.0-100.0); Monocytes # (A) 0.3 k/uL (0-1.0); Monocytes % (A) 4 %; Neutrophils % (A) 79 %; Platelet Count 203 k/uL (150-450); RBC 4.13 m/uL (4.30-5.90); WBC 8.9 k/uL (3.8-10.6)
[2018-12-14 07:33] LABS: Cholesterol 123 mg/dL (<200); Triglycerides 66 mg/dL (<150)
[2018-12-14 07:49] LABS: HDL Cholesterol 42 mg/dL (40-60); LDL Cholesterol,Calculated 68 mg/dL (0-99)
[2018-12-14] MEDS: SODIUM CHLORIDE 0.9% 1,000 ML IV SCH ×2 (08:47→09:55)
[2018-12-14] MEDS: ASPIRIN 325 MG TAB PO SCH (08:50)
[2018-12-14] MEDS ORDERED: ACETAMINOPHEN TAB 325 MG TAB PO PRN (08:58)
[2018-12-14] MEDS ORDERED: CLOPIDOGREL 75 MG TAB PO SCH (09:00)
[2018-12-14] MEDS: IPRATROPIUM-ALBUTEROL 3 ML NEB INHALATION PRN ×2 (09:07→23:41)
[2018-12-14] MEDS ORDERED: NITROGLYCERIN SL TABS 0.4 MG TAB SUBLINGUAL PRN (09:59)
[2018-12-14] MEDS ORDERED: ASPIRIN 81 MG PO SCH (10:00)
[2018-12-14] MEDS ORDERED: METOPROLOL TARTRATE 12.5 MG TAB PO SCH (10:00)
[2018-12-14] MEDS ORDERED: METOPROLOL TARTRATE 25 MG TAB PO STA (10:13)
--- NOTE | 2018-12-14 10:50 | P.HPIM ---
History of Present Illness 63-year-old male with known history of smoking can use to smoke came in with cough congestion and bit whitish sputum production. Patient had a cardiac catheterization month of February and patient is a new antiplatelet therapy at this time patient apparently had heart rate of 120s there was a concern about atrial fibrillation lifted the EKG EKG showed irregular rhythm which appears to be mostly secondary to PACs and controlled heart rate. Patient is presently on Cardizem which were discontinued patient's metoprolol dose will be increased given a dose of metoprolol. With cardiac cardiology will a valid the patient and depending on that assessment leave the decision of anticoagulation to cardiology. Patient had an echocardiogram in month of February because of which I'm not ordering another echocardiogram. If cleared by cardiology patient probably can be discharged today. Patient doesn't have any pharyngitis doesn't appear to have any bacterial tracheobronchitis because of which I do not believe he'll require any antibiotics. He is cleared by cardiology patient will be discharged today. Patient chest x-ray did not show any pneumonia no other signs or symptoms of infection at this time. Patient blood pressure is low normal because of which I'll discontinue hydrochlorothiazide as well as lisinopril. Patient had normal ejection fraction the past probably will need to increase the dose of beta will 25 twice a day from 12.5 twice a day. Review of Systems REVIEW OF SYSTEMS: CONSTITUTIONAL: No fever, no malaise, no fatigue. HEENT: No recent visual problems or hearing problems. Denied any sore throat. CARDIOVASCULAR: No chest pain, orthopnea, PND, no palpitations, no syncope. PULMONARY: No shortness of breath, no hemoptysis. GASTROINTESTINAL: No diarrhea, no nausea, no vomiting, no abdominal pain. NEUROLOGICAL: No headaches, no weakness, no numbness. HEMATOLOGICAL: Denies any bleeding or petechiae. GENITOURINARY: Denies any burning micturition, frequency, or urgency. MUSCULOSKELETAL/RHEUMATOLOGICAL: Denies any joint pain, swelling, or any muscle pain. ENDOCRINE: Denies any polyuria or polydipsia. The rest of the 14-point review of systems is negative. Past Medical History Past Medical History: COPD, Myocardial Infarction ([place]), Seizure Disorder Additional Past Medical History / Comment(s): 3 ruptured spine discs, 2 heart stents, stroke. VISION CHANGES Last Myocardial Infarction Date:: 2002 History of Any Multi-Drug Resistant Organisms: None Reported Past Surgical History: No Surgical Hx Reported Past Psychological History: No Psychological Hx Reported Smoking Status: Current every day smoker Past Alcohol Use History: Occasional Past Drug Use History: Marijuana - Past Family History Mother Family Medical History: Congestive Heart Failure (CHF), CVA/TIA, Diabetes Mellitus Father Family Medical History: Congestive Heart Failure (CHF), Myocardial Infarction ([place]) Medications and Allergies Home Medications Medication Instructions Recorded Confirmed Type Acetaminophen Tab [Tylenol] 650 mg PO Q4H PRN 03/02/18 12/13/18 History Atorvastatin [Lipitor] 80 mg PO HS 03/02/18 12/13/18 History Divalproex Sodium [Depakote] 500 mg PO HS 03/02/18 12/13/18 History Hydrochlorothiazide [Hydrodiuril] 25 mg PO DAILY 03/02/18 12/13/18 History Isosorbide Mononitrate ER [Imdur] 30 mg PO DAILY 03/02/18 12/13/18 History Clopidogrel [Plavix] 75 mg PO DAILY #30 tab 03/04/18 12/13/18 Rx Lisinopril [Zestril] 5 mg PO HS #30 tab 03/04/18 12/13/18 Rx Metoprolol Tartrate [Lopressor] 12.5 mg PO DAILY #30 tab 03/04/18 12/13/18 Rx Nitroglycerin Sl Tabs [Nitrostat] 0.4 mg SUBLINGUAL Q5M PRN #15 tab 03/04/18 12/13/18 Rx Aspirin 81 mg PO Q48H 12/13/18 12/13/18 History Allergies Allergy/AdvReac Type Severity Reaction Status Date / Time No Known Allergies Allergy Verified 12/13/18 20:01 Physical Exam Vitals: Vital Signs Temp Pulse Pulse Resp BP BP Pulse Ox 12/14/18 09:20 92 12/14/18 09:07 88 12/14/18 08:46 97.8 F 88 18 113/60 98 12/14/18 08:00 88 18 12/14/18 04:00 97.9 F 88 17 102/72 98 12/14/18 00:00 97.9 F 90 18 132/79 96 12/13/18 22:21 97.8 F 95 18 121/83 97 12/13/18 21:36 98.6 F 93 18 137/74 96 12/13/18 20:54 98 18 153/84 97 12/13/18 20:37 91 18 121/70 98 12/13/18 20:07 93 12/13/18 19:58 96 12/13/18 18:50 97.8 F 92 18 145/82 98 Intake and Output 12/13/18 12/14/18 12/14/18 22:59 06:59 14:59 Intake Total 5 25 Balance 5 25 Intake: Intake, IV Titration 5 25 Amount Diltiazem 125 mg In 5 25 Sodium Chloride 0.9% 100 ml @ 5 MG/HR 5 mls/hr IV .Q24H COUNT INCLUDES THE [facility] Rx#:[id number] Other: # Voids 2 Weight 76.204 kg 76.2 kg PHYSICAL EXAMINATION: GENERAL: The patient is alert and oriented x3, not in any acute distress. Well developed, well nourished. HEENT: Pupils are round and equally reacting to light. EOMI. No scleral icterus. No conjunctival pallor. Normocephalic, atraumatic. No pharyngeal erythema. No thyromegaly. CARDIOVASCULAR: S1 and S2 present. No murmurs, rubs, or gallops. regular rhythm. PULMONARY: Chest is clear to auscultation, no wheezing or crackles. ABDOMEN: Soft, nontender, nondistended, normoactive bowel sounds. No palpable organomegaly. MUSCULOSKELETAL: No joint swelling or deformity. EXTREMITIES: No cyanosis, clubbing, or pedal edema. NEUROLOGICAL: Gross neurological examination did not reveal any focal deficits. SKIN: No rashes. Results CBC & Chem 7: 12/14/18 06:37 12/13/18 19:25 Labs: Abnormal Lab Results - Last 24 Hours (Table) 12/13/18 12/13/18 12/14/18 Range/Units 19:25 19:25 06:37 WBC 11.2 H (3.8-10.6) k/uL RBC 4.13 L (4.30-5.90) m/uL Hct 38.8 L (39.0-53.0) % Neutrophils # 9.0 H (1.3-7.7) k/uL BUN 24 H (9-20) mg/dL Glucose 119 H (74-99) mg/dL ALT 17 L (21-72) U/L Thrombosis Risk Factor Assmnt - Choose All That Apply Any of the Below Risk Factors Present?: Yes Each Factor Represents 1 point: Obesity (BMI >25) Each Risk Factor Represents 2 Points: Age 61-74 years Thrombosis Risk Factor Assessment Total Risk Factor Score: 3 Thrombosis Risk Factor Assessment Level: Moderate Risk Assessment and Plan Plan: -cough: Secondary to smoking patient doesn't appear to have any back ventricular bronchitis will not need any antibiotics -Tachycardia with possibly of atrial fibrillation: Cardiology will evaluate the patient if cleared by cardiology patient will be discharged anti-correlation as per cardiology. -Hyperlipidemia -Coronary artery disease: Continue with the dual antiplatelet therapy, statin and beta will -hypertension patient blood pressures low-normal because of which I'll discontinue her thiazide as patient's ejection fraction is normal probably supple can be this can urine as well -continue nicotine use: Counseling was provided -Leukocytosis reactive without any signs or symptoms of bacterial infection -seizure disorder can you with his antiseizure medications
--- NOTE | 2018-12-14 10:51 | P.DS ---
Providers Date of admission: 12/13/18 21:07 Attending physician: Abi Agrawal Consults: 12/13/18 21:07 Consult Physician Urgent Consulting Provider: Dylan Osullivan Consult Reason/Comments: afib Do you want consulting provider notified?: Yes Primary care physician: Felipa Weber [facility] Course: please refer to my HPI for further details Patient Condition at Discharge: Fair Plan - Discharge Summary New Discharge Prescriptions: New Metoprolol Tartrate [Lopressor] 25 mg PO BID #60 tab Continue Isosorbide Mononitrate ER [Imdur] 30 mg PO DAILY Divalproex Sodium [Depakote] 500 mg PO HS Atorvastatin [Lipitor] 80 mg PO HS Acetaminophen Tab [Tylenol] 650 mg PO Q4H PRN PRN Reason: Pain Clopidogrel [Plavix] 75 mg PO DAILY #30 tab Nitroglycerin Sl Tabs [Nitrostat] 0.4 mg SUBLINGUAL Q5M PRN #15 tab PRN Reason: Chest Pain Aspirin 81 mg PO Q48H Discontinued Hydrochlorothiazide [Hydrodiuril] 25 mg PO DAILY Lisinopril [Zestril] 5 mg PO HS #30 tab Metoprolol Tartrate [Lopressor] 12.5 mg PO DAILY #30 tab Discharge Medication List Acetaminophen Tab [Tylenol] 650 mg PO Q4H PRN 03/02/18 [History] Atorvastatin [Lipitor] 80 mg PO HS 03/02/18 [History] Divalproex Sodium [Depakote] 500 mg PO HS 03/02/18 [History] Isosorbide Mononitrate ER [Imdur] 30 mg PO DAILY 03/02/18 [History] Clopidogrel [Plavix] 75 mg PO DAILY #30 tab 03/04/18 [Rx] Nitroglycerin Sl Tabs [Nitrostat] 0.4 mg SUBLINGUAL Q5M PRN #15 tab 03/04/18 [Rx] Aspirin 81 mg PO Q48H 12/13/18 [History] Metoprolol Tartrate [Lopressor] 25 mg PO BID #60 tab 12/14/18 [Rx] Follow up Appointment(s)/Referral(s): Felipa Weber MD [Primary Care Provider] - 3 Days
--- NOTE | 2018-12-14 11:47 | P.CRDCN ---
History of Present Illness Consult date: 12/14/18 History of present illness: This is a 63-year-old gentleman with history of previous CVA, hypertension and also coronary artery disease who was admitted to the hospital with complaints of intermittent palpitations and some chest discomfort for the last 2-3 days. He is also feeling dizzy. He was found to have evidence of atrial fibrillation with moderately fast ventricular response. In February patient was admitted with chest pain and positive troponins. Cardiac catheterization at that time revealed total occluded right coronary artery and total occlusion of the distal LAD and a critical lesion in the mid LAD. She had stent placement of the mid LAD. The distal LAD could not be crossed. There were good collateral to the RCA. Patient has been on aspirin and Plavix. At this point patient is advised to go on anticoagulation therapy. Patient is very hesitant. He is agreed to go on heparin. She was given the choice of going on Coumadin or new anticoagulation therapy. Patient is also hesitant. We'll going to check and see if he can qualify for an urinary anticoagulation therapy. Meanwhile, I'll increase the dose of beta will for better control of his heart rate. If he goes on anticoagulation therapy. We'll just put him on Plavix and discontinue aspirin. I'll also get an echocardiogram to assess LV function Review of Systems As per the chart Past Medical History Past Medical History: COPD, Myocardial Infarction ([place]), Seizure Disorder Additional Past Medical History / Comment(s): 3 ruptured spine discs, 2 heart stents, stroke. VISION CHANGES Last Myocardial Infarction Date:: 2002 History of Any Multi-Drug Resistant Organisms: None Reported Past Surgical History: No Surgical Hx Reported Past Psychological History: No Psychological Hx Reported Smoking Status: Current every day smoker Past Alcohol Use History: Occasional Past Drug Use History: Marijuana - Past Family History Mother Family Medical History: Congestive Heart Failure (CHF), CVA/TIA, Diabetes Mellitus Father Family Medical History: Congestive Heart Failure (CHF), Myocardial Infarction ([place]) Medications and Allergies Home Medications Medication Instructions Recorded Confirmed Type Acetaminophen Tab [Tylenol] 650 mg PO Q4H PRN 03/02/18 12/13/18 History Atorvastatin [Lipitor] 80 mg PO HS 03/02/18 12/13/18 History Divalproex Sodium [Depakote] 500 mg PO HS 03/02/18 12/13/18 History Isosorbide Mononitrate ER [Imdur] 30 mg PO DAILY 03/02/18 12/13/18 History Clopidogrel [Plavix] 75 mg PO DAILY #30 tab 03/04/18 12/13/18 Rx Nitroglycerin Sl Tabs [Nitrostat] 0.4 mg SUBLINGUAL Q5M PRN #15 tab 03/04/18 12/13/18 Rx Aspirin 81 mg PO Q48H 12/13/18 12/13/18 History Metoprolol Tartrate [Lopressor] 25 mg PO BID #60 tab 12/14/18 Rx Allergies Allergy/AdvReac Type Severity Reaction Status Date / Time No Known Allergies Allergy Verified 12/13/18 20:01 Physical Exam Vitals: Vital Signs Temp Pulse Pulse Resp BP BP Pulse Ox 12/14/18 11:33 97.8 F 93 18 146/92 98 12/14/18 11:02 88 18 12/14/18 09:20 92 12/14/18 09:07 88 12/14/18 08:46 97.8 F 88 18 113/60 98 12/14/18 08:00 88 18 12/14/18 04:00 97.9 F 88 17 102/72 98 12/14/18 00:00 97.9 F 90 18 132/79 96 12/13/18 22:21 97.8 F 95 18 121/83 97 12/13/18 21:36 98.6 F 93 18 137/74 96 12/13/18 20:54 98 18 153/84 97 12/13/18 20:37 91 18 121/70 98 12/13/18 20:07 93 12/13/18 19:58 96 12/13/18 18:50 97.8 F 92 18 145/82 98 Intake and Output 12/13/18 12/14/18 12/14/18 22:59 06:59 14:59 Intake Total 5 25 Balance 5 25 Intake: Intake, IV Titration 5 25 Amount Diltiazem 125 mg In 5 25 Sodium Chloride 0.9% 100 ml @ 5 MG/HR 5 mls/hr IV .Q24H [facility] Rx#:[id number] Other: # Voids 2 Weight 76.204 kg 76.2 kg GENERAL EXAM: Patient is alert and oriented and doesn't appear to be in any acute distress HEENT: Normocephalic. Normal reaction of pupils, equal size, normal range of extraocular motion. No erythema or exudates in the throat. NECK: No masses, no nuchal rigidity. CHEST: No chest wall deformity. LUNGS: Equal air entry with no crackles or wheeze. HEART: S1 and S2 normal. Irregular heart sounds ABDOMEN: No hepatosplenomegaly, normal bowel sounds, no guarding or rigidity. SKIN: No rashes CENTRAL NERVOUS SYSTEM: No focal deficits. EXTREMITIES: No cyanosis, clubbing or edema. Results 12/14/18 06:37 12/13/18 19:25 Cardiac Enzymes 12/13/18 12/13/18 12/14/18 Range/Units 19:25 19: 01:23 AST 23 (17-59) U/L Troponin I <0.012 <0.012 (0.000-0.034) ng/mL 12/14/18 Range/Units 06:37 AST (17-59) U/L Troponin I <0.012 (0.000-0.034) ng/mL Coagulation 12/13/18 12/14/18 Range/Units 19:25 06:37 PT 10.0 (9.0-12.0) sec APTT 23.9 24.2 (22.0-30.0) sec Lipids 12/14/18 Range/Units 06:37 Triglycerides 66 (<150) mg/dL Cholesterol 123 (<200) mg/dL HDL Cholesterol 42 (40-60) mg/dL CBC 12/13/18 12/14/18 Range/Units 19:25 06:37 WBC 11.2 H 8.9 (3.8-10.6) k/uL RBC 4.51 4.13 L (4.30-5.90) m/uL Hgb 14.9 13.8 (13.0-17.5) gm/dL Hct 42.6 38.8 L (39.0-53.0) % Plt Count 228 203 (150-450) k/uL Comprehensive Metabolic Panel 12/13/18 Range/Units 19:25 Sodium 139 (137-145) mmol/L Potassium 4.5 (3.5-5.1) mmol/L Chloride 99 (98-107) mmol/L Carbon Dioxide 28 (22-30) mmol/L BUN 24 H (9-20) mg/dL Creatinine 0.88 (0.66-1.25) mg/dL Glucose 119 H (74-99) mg/dL Calcium 9.6 (8.4-10.2) mg/dL AST 23 (17-59) U/L ALT 17 L (21-72) U/L Alkaline Phosphatase 75 (38-126) U/L Total Protein 7.6 (6.3-8.2) g/dL Albumin 4.7 (3.5-5.0) g/dL Current Medications Generic Name Dose Route Start Last Admin Trade Name Freq PRN Reason Stop Dose Admin Acetaminophen 650 mg 12/14/18 08:58 Tylenol Tab PO Q4H PRN Mild Pain Albuterol/Ipratropium 3 ml 12/13/18 21:07 12/14/18 09:07 Duoneb 0.5 Mg-3 Mg/3 Ml Soln INHALATION 3 ml RT-QID PRN Administration Shortness Of Breath Or Wheezing Aspirin 325 mg 12/14/18 09:00 12/14/18 08:50 Aspirin PO 325 mg DAILY DUNG Administration Atorvastatin Calcium 80 mg 12/14/18 21:00 Lipitor PO HS DUNG Divalproex Sodium 500 mg 12/14/18 01:06 12/14/18 01:20 Depakote PO 500 mg HS DUNG Administration Heparin Sodium (Porcine) 0 unit 12/13/18 21:43 Heparin IV PER PROTOCOL PRN Low PTT Protocol Sodium Chloride 1,000 mls @ 100 mls/hr 12/13/18 21:15 12/14/18 09:55 Saline 0.9% IV Not Given .Q10H [facility] Heparin Sodium/Sodium Chloride 250 mls @ 9.144 mls/hr 12/13/18 21:45 12/13/18 23:26 25,000 unit/ Sodium Chloride IV Not Given .Q24H [facility] Protocol 12 UNITS/KG/HR Isosorbide Mononitrate 30 mg 12/15/18 09:00 Imdur PO DAILY [facility] Metoprolol Tartrate 25 mg 12/14/18 16:00 Lopressor PO TID DUNG Nitroglycerin 0.4 mg 12/13/18 21:07 Nitrostat SUBLINGUAL Q5M PRN Chest Pain Intake and Output 12/13/18 12/14/18 12/14/18 22:59 06:59 14:59 Intake Total 5 25 Balance 5 25 Intake: Intake, IV Titration 5 25 Amount Diltiazem 125 mg In 5 25 Sodium Chloride 0.9% 100 ml @ 5 MG/HR 5 mls/hr IV .Q24H [facility] Rx#:[id number] Other: # Voids 2 Weight 76.204 kg 76.2 kg 12/14/18 06:37 12/13/18 19:25 EKG Interpretations (text) Atrial fibrillation with controlled ventricular response Assessment and Plan (1) New onset atrial fibrillation Current Visit: Yes Status: Acute Code(s): I48.91 - UNSPECIFIED ATRIAL FIBRILLATION SNOMED Code(s): 88799155 (2) Cerebral arteriosclerosis with history of previous cerebrovascular accident Current Visit: Yes Status: Acute Code(s): I67.2 - CEREBRAL ATHEROSCLEROSIS; Z86.73 - PRSNL HX OF TIA (TIA), AND CEREB INFRC W/O RESID DEFICITS SNOMED Code(s): 61841968 (3) CAD (coronary artery disease) Current Visit: Yes Status: Acute Code(s): I25.10 - ATHSCL HEART DISEASE OF [place] CORONARY ARTERY W/O ANG PCTRS SNOMED Code(s): 21978304 (4) Hypertension Current Visit: Yes Status: Acute Code(s): I10 - ESSENTIAL (PRIMARY) HYPERTENSION SNOMED Code(s): 43194452 Plan: I will increase the dose of the beta will. Get an echocardiogram done to assess LV function. Recommend patient to go on anticoagulation therapy.
[2018-12-14] MEDS: WARFARIN 5 MG TAB PO STA ×2 (15:40→16:56)
[2018-12-14] MEDS: HEPARIN SOD,PORK IN 0.45% NACL 25,000 UNIT in 0.45% NACL 1 250ML.BAG IV SCH (15:42)
[2018-12-14] MEDS ORDERED: METOPROLOL TARTRATE 25 MG TAB PO SCH ×2 (16:00→21:00)
[2018-12-14] MEDS ORDERED: LISINOPRIL 5 MG TAB PO SCH (21:00)
[2018-12-14] MEDS ORDERED: ATORVASTATIN 80 MG TAB PO SCH (21:00)
[2018-12-14] MEDS ORDERED: DIVALPROEX 500 MG TABLET.DR PO SCH (21:00)
[2018-12-14] MEDS: METOPROLOL TARTRATE 25 MG TAB PO SCH (22:20)
[2018-12-15 03:48] LABS: Basophils # (A) 0.1 k/uL (0-0.2); Basophils % (A) 0 %; Eosinophils # (A) 0.1 k/uL (0-0.7); Eosinophils % (A) 1 %; HCT 38.1 % (39.0-53.0); HGB 13.3 gm/dL (13.0-17.5); Lymphocytes # (A) 4.3 k/uL (1.0-4.8); Lymphocytes % (A) 34 %; MCH 33.1 pg (25.0-35.0); MCHC 34.8 g/dL (31.0-37.0); Mean Platelet Volume 7.9; Monocytes # (A) 0.7 k/uL (0-1.0); Monocytes % (A) 5 %; Neutrophils % (A) 56 %; Platelet Count 177 k/uL (150-450); RBC 4.01 m/uL (4.30-5.90); RDW 14.9 % (11.5-15.5); WBC 12.4 k/uL (3.8-10.6)
[2018-12-15] MEDS: SODIUM CHLORIDE 0.9% 1,000 ML IV SCH ×2 (04:28→10:00)
[2018-12-15 06:27] LABS: INR 1.1 (<1.2); Prothrombin Time 11.1 sec (9.0-12.0)
[2018-12-15] MEDS: IPRATROPIUM-ALBUTEROL 3 ML NEB INHALATION PRN (08:56)
[2018-12-15] MEDS ORDERED: HYDROCHLOROTHIAZIDE 25 MG TAB PO SCH (09:00)
[2018-12-15] MEDS ORDERED: ISOSORBIDE MONONITRATE ER 30 MG TAB.ER.24H PO SCH (09:00)
[2018-12-15] MEDS: METOPROLOL TARTRATE 25 MG TAB PO SCH (09:40)
[2018-12-15] MEDS: ASPIRIN 325 MG TAB PO SCH (09:41)
--- NOTE | 2018-12-15 11:53 | ECHOF ---
Referral Reason:Chest pain and cardiomyopathy MEASUREMENTS -------- HEIGHT: 170.2 cm WEIGHT: 75.7 kg BP: 146/92 RVIDd: 3.8 cm (< 3.3) IVSd: 1.6 cm (0.6 - 1.1) LVIDd: 4.2 cm (3.9 - 5.3) LVPWd: 1.7 cm (0.6 - 1.1) IVSs: 1.6 cm LVIDs: 3.2 cm LVPWs: 1.9 cm LAESV Index (A-L): 44.93 ml/m Ao Diam: 4.2 cm (2.0 - 3.7) AV Cusp: 1.8 cm (1.5 - 2.6) LA Diam: 3.9 cm (2.7 - 3.8) RAP: 20.00 mmHg RVSP: 46.71 mmHg FINDINGS -------- Atrial fibrillation. This was a technically adequate study. The left ventricular size is normal. There is moderate concentric left ventricular hypertrophy. O verall left ventricular systolic function is mildly impaired with, an EF between 45 - 50 %. Left ve ntricular fillimg pressure cannot be estimated due to Atrial fibrillation. The right ventricle is moderately enlarged. Left atrium is severely dilated by volume. The right atrial size is normal. Interatrial and interventricular septum intact. The aortic valve is trileaflet, and appears structurally normal. No aortic stenosis or regurgitation. The mitral valve leaflets are mildly thickened. Qzjyovjv-lf-wovlrs mitral regurgitation is present. Mild tricuspid regurgitation present. There is mild to moderate pulmonary hypertension. The right ventricular systolic pressure, as measured by Doppler, is 46.71mmHg. There is no pulmonic regurgitation present. The aortic root is mildy dilated. The inferior vena cava is dilated with poor inspiratory collapse which is consistent with estimated r ight atrial pressure of 20 mmHg. There is no pericardial effusion. CONCLUSIONS -------- 1. Atrial fibrillation. 2. The left ventricular size is normal. 3. There is moderate concentric left ventricular hypertrophy. 4. Overall left ventricular systolic function is mildly impaired with, an EF between 45 - 50 %. 5. Left ventricular fillimg pressure cannot be estimated due to Atrial fibrillation. 6. The right ventricle is moderately enlarged. 7. Left atrium is severely dilated by volume. 8. The aortic valve is trileaflet, and appears structurally normal. No aortic stenosis or regurgitati on. 9. The mitral valve leaflets are mildly thickened. 10. [id number] mitral regurgitation is present. 11. Mild tricuspid regurgitation present. 12. There is mild to moderate pulmonary hypertension. 13. There is no pulmonic regurgitation present. 14. The aortic root is mildy dilated. 15. The inferior vena cava is dilated with poor inspiratory collapse which is consistent with estimat ed right atrial pressure of 20 mmHg. 16. There is no pericardial effusion. UNDERGROUND BOLTING MACHINE OPERATOR: Marta Kearns RDCS
[2018-12-15 12:08] VITALS: BP 115/61; PULSE 78; RESP 20; TEMP 98.7
--- NOTE | 2018-12-15 13:31 | P.PN ---
Subjective Progress Note Date: 12/15/18 This patient with history of ischemic heart disease and previous stent placement of the LAD, presented to the hospital with palpitations and was noted to have the onset atrial fibrillation. Patient's heart rate is well controlled. Echo Cardigan showed stable LV function with ejection fraction of 45-50%. There is moderate to severe mitral regurgitation. Clinically patient is doing well. Lungs are clear. Heart is regular. He is going to go on Coumadin. He'll continue Coumadin and Plavix but stopped the aspirin. Patient will have follow- up with Dr. IVONNE Sanders. After 6 weeks of anticoagulation, cardioversion may be considered. Objective - Vital Signs Vital signs: Vital Signs Temp 98.7 F 12/15/18 12:00 Pulse 78 12/15/18 12:00 Resp 20 12/15/18 12:00 BP 115/61 12/15/18 12:00 Pulse Ox 97 12/15/18 12:00 Intake & Output 12/14/18 12/15/18 12/15/18 18:59 06:59 18:59 Intake Total 334.958 222 Balance 334.958 222 Weight 77.5 kg Intake: Intake, IV Titration 134.958 Amount Heparin Sod,Pork in 0.45% 134.958 NaCl 25,000 unit In 0.45 % NaCl 1 250ml.bag @ 12 UNITS/KG/HR 9.144 mls/hr IV .Q24H [facility] Rx#: [id number] Oral 200 222 Other: Voiding Method Toilet Toilet # Voids 1 - Exam GENERAL EXAM: Patient is alert and oriented and doesn't appear to be in any acute distress HEENT: Normocephalic. Normal reaction of pupils, equal size, normal range of extraocular motion. No erythema or exudates in the throat. NECK: No masses, no nuchal rigidity. CHEST: No chest wall deformity. LUNGS: Equal air entry with no crackles or wheeze. HEART: S1 and S2 normal. Irregular heart sounds ABDOMEN: No hepatosplenomegaly, normal bowel sounds, no guarding or rigidity. SKIN: No rashes CENTRAL NERVOUS SYSTEM: No focal deficits. EXTREMITIES: No cyanosis, clubbing or edema. - Labs CBC & Chem 7: 12/15/18 03:29 12/13/18 19:25 Labs: Abnormal Lab Results - Last 24 Hours (Table) 12/14/18 12/15/18 12/15/18 Range/Units 19:16 03:29 03:29 WBC 12.4 H (3.8-10.6) k/uL RBC 4.01 L (4.30-5.90) m/uL Hct 38.1 L (39.0-53.0) % APTT 34.6 H 91.3 H (22.0-30.0) sec Microbiology - Last 24 Hours (Table) 12/13/18 19:25 Blood Culture - Preliminary Blood No Growth after 24 hours Assessment and Plan (1) New onset atrial fibrillation Current Visit: Yes Status: Acute Code(s): I48.91 - UNSPECIFIED ATRIAL FIBRILLATION SNOMED Code(s): 28928590 (2) Cerebral arteriosclerosis with history of previous cerebrovascular accident Current Visit: Yes Status: Acute Code(s): I67.2 - CEREBRAL ATHEROSCLEROSIS; Z86.73 - PRSNL HX OF TIA (TIA), AND CEREB INFRC W/O RESID DEFICITS SNOMED Code(s): 54959948 (3) CAD (coronary artery disease) Current Visit: Yes Status: Acute Code(s): I25.10 - ATHSCL HEART DISEASE OF [place] CORONARY ARTERY W/O ANG PCTRS SNOMED Code(s): 20286710 (4) Hypertension Current Visit: Yes Status: Acute Code(s): I10 - ESSENTIAL (PRIMARY) HYPERTENSION SNOMED Code(s): 31293808 Plan: Patient decided to go on Coumadin. We'll continue combination of Plavix and Coumadin. Patient could be discharged home. Follow-up with Dr. IVONNE Sanders. Echo showed an ejection fraction about 45-50%. There is moderate to severe mitral regurgitation
--- NOTE | 2018-12-15 13:45 | P.DS ---
Providers Date of admission: 12/13/18 21:07 Expected date of discharge: 12/15/18 Attending physician: Abi Agrawal Consults: 12/13/18 21:07 Consult Physician Urgent Consulting Provider: Dylan Osullivan Consult Reason/Comments: afib Do you want consulting provider notified?: Yes Primary care physician: [facility] Course: Please refer to HPI for further details On exam vital signs are stable. Temp is 98.7F, pulse is 78, respirations are 20, blood pressure is 115/61, oxygen saturation is 97 percent on room air. Cardio S1 and S2 are muffled. Respiratory system shows clear to auscultation. Abdomen is soft and nontender. Nervous system shows no focal deficits and gait is steady. Please refer to medication reconciliation sheet for a list of medications. Patient Condition at Discharge: Fair Plan - Discharge Summary New Discharge Prescriptions: New Metoprolol Tartrate [Lopressor] 25 mg PO BID #60 tab Warfarin Sodium [Coumadin] 5 mg PO DAILY 30 Days #30 tablet Continue Isosorbide Mononitrate ER [Imdur] 30 mg PO DAILY Divalproex Sodium [Depakote] 500 mg PO HS Atorvastatin [Lipitor] 80 mg PO HS Acetaminophen Tab [Tylenol] 650 mg PO Q4H PRN PRN Reason: Pain Clopidogrel [Plavix] 75 mg PO DAILY #30 tab Nitroglycerin Sl Tabs [Nitrostat] 0.4 mg SUBLINGUAL Q5M PRN #15 tab PRN Reason: Chest Pain Discontinued Hydrochlorothiazide [Hydrodiuril] 25 mg PO DAILY Lisinopril [Zestril] 5 mg PO HS #30 tab Metoprolol Tartrate [Lopressor] 12.5 mg PO DAILY #30 tab Aspirin 81 mg PO Q48H Discharge Medication List Acetaminophen Tab [Tylenol] 650 mg PO Q4H PRN 03/02/18 [History] Atorvastatin [Lipitor] 80 mg PO HS 03/02/18 [History] Divalproex Sodium [Depakote] 500 mg PO HS 03/02/18 [History] Isosorbide Mononitrate ER [Imdur] 30 mg PO DAILY 03/02/18 [History] Clopidogrel [Plavix] 75 mg PO DAILY #30 tab 03/04/18 [Rx] Nitroglycerin Sl Tabs [Nitrostat] 0.4 mg SUBLINGUAL Q5M PRN #15 tab 03/04/18 [Rx] Metoprolol Tartrate [Lopressor] 25 mg PO BID #60 tab 12/14/18 [Rx] Warfarin Sodium [Coumadin] 5 mg PO DAILY 30 Days #30 tablet 12/15/18 [Rx] Follow up Appointment(s)/Referral(s): Sid Sanders MD [STAFF PHYSICIAN] - 1 Week (Spoke to bilingual medical receptionist. Office will call with appointment time.) Felipa Weber MD [Primary Care Provider] - 12/19/18 11:30 am (Wednesday) Ambulatory/Diagnostic Orders: Basic Metabolic Panel [LAB.AMB] Time Frame: 3 Days, Location: None Selected Complete Blood Count w/diff [LAB.AMB] Time Frame: 3 Days, Location: None Selected Prothrombin Time INR [LAB.AMB] Time Frame: 5 Days, Location: None Selected Patient Instructions/Handouts: A-fib (Atrial Fibrillation) (DC), Vitamin K in Foods (DC), Safe Use of Anticoagulants (DC) Activity/Diet/Wound Care/Special Instructions: Activity Limited until follow-up Follow-up with her reservoir caretaker this week Follow-up with PCP in 2-3 days Repeat labs in 2-3 days Repeat PT/INR in 5 days. Continue current diet Discharge Disposition: HOME SELF-CARE
== END 2018-12-15 14:52 | disposition home or self-care (01) | DRG 309 ==
LOC: EC 18:41 → 3SCARD 21:07
PROVIDERS: ADMIT Hospitalist; ATTEND Hospitalist
DX: I48.91 Unspecified atrial fibrillation (principal); J44.0 Chronic obstructive pulmonary disease with (acute) lower respiratory infection; I25.82 Chronic total occlusion of coronary artery; I67.2 Cerebral atherosclerosis; E78.5 Hyperlipidemia, unspecified; F17.200 Nicotine dependence, unspecified, uncomplicated; G40.909 Epilepsy, unspecified, not intractable, without status epilepticus; I10 Essential (primary) hypertension; I25.10 Atherosclerotic heart disease of native coronary artery without angina pectoris; I25.2 Old myocardial infarction; I34.0 Nonrheumatic mitral (valve) insufficiency; J20.9 Acute bronchitis, unspecified; D72.829 Elevated white blood cell count, unspecified; Z79.02 Long term (current) use of antithrombotics/antiplatelets; Z79.899 Other long term (current) drug therapy; Z79.82 Long term (current) use of aspirin; Z86.73 Personal history of transient ischemic attack (TIA), and cerebral infarction without residual deficits; Z95.5 Presence of coronary angioplasty implant and graft; Z82.49 Family history of ischemic heart disease and other diseases of the circulatory system; Z83.3 Family history of diabetes mellitus
CPT/HCPCS: 36415; 71046; 80053; 80061; 80165; 82140; 83735; 83880; 84484; 85025; 85379; 85610; 85730; 87040; 93005; 93306; 94640; 94760; 96361; 96365; 96375; 96376; 99291

== ENCOUNTER → 2019-02-02 | Outpatient (CLI) | payer MEDICARE ==
[2019-02-02 16:47] LABS: HCT 39.9 % (39.0-53.0); HGB 13.9 gm/dL (13.0-17.5); MCH 33.4 pg (25.0-35.0); MCHC 34.8 g/dL (31.0-37.0); MCV 95.9 fL (80.0-100.0); Mean Platelet Volume 6.6; Platelet Count 194 k/uL (150-450); RBC 4.17 m/uL (4.30-5.90); RDW 13.2 % (11.5-15.5); WBC 12.1 k/uL (3.8-10.6)
[2019-02-02 16:57] LABS: Potassium 4.2 mmol/L (3.5-5.1)
== END | disposition home or self-care (01) ==
LOC: LABPAT 15:20
PROVIDERS: ATTEND Family Medicine
DX: Z01.812 Encounter for preprocedural laboratory examination (principal); I48.91 Unspecified atrial fibrillation
CPT/HCPCS: 80051; 84520; 85027

== ENCOUNTER → 2019-02-08 | Day surgery (SDC) | payer MEDICARE ==
[~2019-02-08] MED LIST: SODIUM CHLORIDE 0.9% 1,000 ML IV SCH
[2019-02-08 10:39] VITALS: BP 129/70; PULSE 43; RESP 18; TEMP 97.9
== END ==
LOC: CATHCVL 10:10
PROVIDERS: ATTEND Internal Medicine Interventional Cardiology
DX: I48.91 Unspecified atrial fibrillation (principal); I10 Essential (primary) hypertension; E78.5 Hyperlipidemia, unspecified; I25.10 Atherosclerotic heart disease of native coronary artery without angina pectoris; R00.2 Palpitations; Z86.73 Personal history of transient ischemic attack (TIA), and cerebral infarction without residual deficits; G40.909 Epilepsy, unspecified, not intractable, without status epilepticus; F17.290 Nicotine dependence, other tobacco product, uncomplicated; Z82.49 Family history of ischemic heart disease and other diseases of the circulatory system; Z95.5 Presence of coronary angioplasty implant and graft; E78.00 Pure hypercholesterolemia, unspecified; Z79.01 Long term (current) use of anticoagulants; Z79.899 Other long term (current) drug therapy; Z53.8 Procedure and treatment not carried out for other reasons

== ENCOUNTER 2019-04-02 20:43 | Observation (INO) | payer MEDICARE ==
[2019-04-02 21:42] LABS: Basophils # (A) 0.1 k/uL (0-0.2); Basophils % (A) 1 %; Eosinophils # (A) 0.3 k/uL (0-0.7); Eosinophils % (A) 3 %; Lymphocytes # (A) 2.7 k/uL (1.0-4.8); Lymphocytes % (A) 30 %; MCH 31.2 pg (25.0-35.0); MCHC 33.3 g/dL (31.0-37.0); MCV 93.7 fL (80.0-100.0); Mean Platelet Volume 8.6; Monocytes # (A) 0.6 k/uL (0-1.0); Monocytes % (A) 7 %; Neutrophils % (A) 57 %; Platelet Count 179 k/uL (150-450); RBC 4.48 m/uL (4.30-5.90); RDW 12.8 % (11.5-15.5); WBC 8.9 k/uL (3.8-10.6)
--- NOTE | 2019-04-02 21:47 | XR ---
EXAMINATION TYPE: XR chest 2V DATE OF EXAM: 04/02/2019 COMPARISON: 12/13/2018 HISTORY: Difficulty breathing TECHNIQUE: FINDINGS: Heart and mediastinum are normal. Lungs are clear. Diaphragm is normal. Bony thorax is inta ct. IMPRESSION: Normal chest. No change.
[2019-04-02 21:50] LABS: INR 1.4 (<1.2); Partial Thromboplastin Time 30.6 sec (22.0-30.0); Prothrombin Time 14.4 sec (9.0-12.0)
[2019-04-02 21:54] LABS: ALT 20 U/L (4-49); AST 30 U/L (17-59); African American GFR (CKD) >90 (>60 ml/min/1.73 sqM); Albumin 4.5 g/dL (3.5-5.0); Alkaline Phosphatase 85 U/L (38-126); Anion Gap 9 mmol/L; Blood Urea Nitrogen 22 mg/dL (9-20); Calcium 9.4 mg/dL (8.4-10.2); Carbon Dioxide 25 mmol/L (22-30); Chloride 104 mmol/L (98-107); Glucose 101 mg/dL (74-99); Non-African American GFR(CKD) >90 (>60 ml/min/1.73 sqM); Potassium 3.6 mmol/L (3.5-5.1); Sodium 138 mmol/L (137-145); Total Bilirubin 0.6 mg/dL (0.2-1.3); Total Protein 7.2 g/dL (6.3-8.2)
--- NOTE | 2019-04-02 22:34 | ED ---
General Adult HPI - General Chief complaint: Shortness of Breath Stated complaint: TRUDY Time Seen by Provider: 04/02/19 21:02 Source: patient Mode of arrival: ambulatory Limitations: no limitations - History of Present Illness Initial comments: Patient is a 63-year-old male, with past medical history of heart disease, A. Fib, COPD, seizure disorder, presenting to emergency Department with a cough and chest tightness for 2 days. States he has a nonproductive cough. He denies fever, chills. He does admit to mild shortness of breath that is intermittent. Patient states he did try taking his inhaler without improvement of symptoms. Patient's hogshead filler is Dr. Sanders, he did have a heart cath done in January this past year. He denies nausea, vomiting, abdominal pain, urinary complaints he has no other complaints at this time. On arrival to the ER, his vital signs are stable. - Related Data Home Medications Medication Instructions Recorded Confirmed Acetaminophen Tab [Tylenol] 325 mg PO Q6H PRN 03/02/18 02/08/19 Atorvastatin [Lipitor] 80 mg PO HS 03/02/18 02/08/19 Divalproex Sodium [Depakote] 500 mg PO HS 03/02/18 02/08/19 Isosorbide Mononitrate ER [Imdur] 30 mg PO PC-LUNCH 03/02/18 02/08/19 Amiodarone [Cordarone] 200 mg PO BID 02/07/19 02/08/19 Clopidogrel [Plavix] 75 mg PO QAM 02/07/19 02/08/19 Hydrochlorothiazide 25 mg PO QAM 02/07/19 02/08/19 Warfarin Sodium [Coumadin] 5 mg PO MOTUTHFRSA 02/07/19 02/08/19 Previous Rx's Medication Instructions Recorded Nitroglycerin Sl Tabs [Nitrostat] 0.4 mg SUBLINGUAL Q5M PRN #15 tab 03/04/18 Metoprolol Tartrate [Lopressor] 25 mg PO BID #60 tab 12/14/18 Zolpidem Tartrate [Ambien] 10 mg PO HS PRN 6 Days #6 tab 12/15/18 Allergies Allergy/AdvReac Type Severity Reaction Status Date / Time No Known Allergies Allergy Verified 04/02/19 20:51 Review of Systems ROS Statement: Those systems with pertinent positive or pertinent negative responses have been documented in the HPI. ROS Other: All systems not noted in ROS Statement are negative. Past Medical History Past Medical History: COPD, Myocardial Infarction ([place]), Seizure Disorder Additional Past Medical History / Comment(s): 3 ruptured spine discs, 2 heart stents, stroke. VISION CHANGES, mitral valve placements. Last Myocardial Infarction Date:: 2002 History of Any Multi-Drug Resistant Organisms: None Reported Past Surgical History: No Surgical Hx Reported, Heart Catheterization With Stent Past Psychological History: Depression Smoking Status: Current every day smoker Past Alcohol Use History: Occasional Past Drug Use History: Marijuana - Past Family History Mother Family Medical History: Congestive Heart Failure (CHF), CVA/TIA, Diabetes Mellitus Father Family Medical History: Congestive Heart Failure (CHF), Myocardial Infarction ([place]) General Exam - General Exam Comments Initial Comments: GENERAL: Well-appearing, well-nourished and in no acute distress. HEAD: Atraumatic, normocephalic. EYES: Pupils equal round and reactive to light, extraocular movements intact, sclera anicteric, conjunctiva are normal. ENT: TMs normal, nares patent, oropharynx clear without exudates. Moist mucous membranes. NECK: Normal range of motion, supple without lymphadenopathy or JVD. LUNGS: Slightly decreased breath sounds upper lobes bilaterally, No wheezes rales or rhonchi. HEART: Regular rate and rhythm without murmurs, rubs or gallops. ABDOMEN: Soft, nontender, normoactive bowel sounds. No guarding, no rebound. No masses appreciated. : Deferred EXTREMITIES: Normal range of motion, no pitting or edema. No clubbing or cyanosis. NEUROLOGICAL: Normal speech, normal gait. PSYCH: Normal mood, normal affect. SKIN: Warm, Dry, normal turgor, no rashes or lesions noted. Limitations: no limitations Course Vital Signs 04/02/19 04/02/19 04/02/19 20:48 21:01 21:50 Temperature 98.2 F Pulse Rate 57 L 53 L Respiratory 22 22 20 Rate Blood Pressure 167/90 108/86 O2 Sat by Pulse 98 98 Oximetry 04/02/19 04/02/19 04/02/19 22:00 22:30 23:04 Temperature Pulse Rate 56 L 52 L 53 L Respiratory 20 20 Rate Blood Pressure 145/77 160/92 O2 Sat by Pulse 99 99 Oximetry 04/02/19 23:10 Temperature Pulse Rate 56 L Respiratory Rate Blood Pressure O2 Sat by Pulse Oximetry EKG Findings - EKG Comments: EKG Findings:: Ventricular rate 55, NH interval 164, QTC 453. Sinus bradycardia with fusion complexes. No acute ST segment elevations. Medical Decision Making - Medical Decision Making Patient is a 17-year-old male presenting with cough and chest tightness for 2 days. His vital signs are stable. Patient has extensive heart history with a heart cath performed 2 months ago. EKG shows no acute changes. Lab workup today is normal, troponin is normal. Chest x-ray shows no acute findings. I discussed these findings with the patient. Given his heart disease history, I recommended him staying for observation for serial troponin and cardiac consult. Patient is in agreement with this plan of care. Patient will be given a breathing treatment, aspirin, steroids. Patient was accepted by Dr. Dahl. We will consult cardiology. Case discussed with Dr. Perez. - Lab Data Result diagrams: 04/02/19 21:30 04/02/19 21:30 Lab Results 04/02/19 04/02/19 04/02/19 Range/Units 21:30 21:30 21:30 WBC 8.9 (3.8-10.6) k/uL RBC 4.48 (4.30-5.90) m/uL Hgb 14.0 (13.0-17.5) gm/dL Hct 42.0 (39.0-53.0) % MCV 93.7 (80.0-100.0) fL MCH 31.2 (25.0-35.0) pg MCHC 33.3 (31.0-37.0) g/dL RDW 12.8 (11.5-15.5) % Plt Count 179 (150-450) k/uL Neutrophils % 57 % Lymphocytes % 30 % Monocytes % 7 % Eosinophils % 3 % Basophils % 1 % Neutrophils # 5.0 (1.3-7.7) k/uL Lymphocytes # 2.7 (1.0-4.8) k/uL Monocytes # 0.6 (0-1.0) k/uL Eosinophils # 0.3 (0-0.7) k/uL Basophils # 0.1 (0-0.2) k/uL PT 14.4 H (9.0-12.0) sec INR 1.4 H (<1.2) APTT 30.6 H (22.0-30.0) sec Sodium 138 (137-145) mmol/L Potassium 3.6 (3.5-5.1) mmol/L Chloride 104 (98-107) mmol/L Carbon Dioxide 25 (22-30) mmol/L Anion Gap 9 mmol/L BUN 22 H (9-20) mg/dL Creatinine 0.75 (0.66-1.25) mg/dL Est GFR (CKD-EPI)AfAm >90 (>60 ml/min/1.73 sqM) Est GFR (CKD-EPI)NonAf >90 (>60 ml/min/1.73 sqM) Glucose 101 H (74-99) mg/dL Calcium 9.4 (8.4-10.2) mg/dL Total Bilirubin 0.6 (0.2-1.3) mg/dL AST 30 (17-59) U/L ALT 20 (4-49) U/L Alkaline Phosphatase 85 (38-126) U/L Troponin I (0.000-0.034) ng/mL Total Protein 7.2 (6.3-8.2) g/dL Albumin 4.5 (3.5-5.0) g/dL 04/02/19 Range/Units 21:30 WBC (3.8-10.6) k/uL RBC (4.30-5.90) m/uL Hgb (13.0-17.5) gm/dL Hct (39.0-53.0) % MCV (80.0-100.0) fL MCH (25.0-35.0) pg MCHC (31.0-37.0) g/dL RDW (11.5-15.5) % Plt Count (150-450) k/uL Neutrophils % % Lymphocytes % % Monocytes % % Eosinophils % % Basophils % % Neutrophils # (1.3-7.7) k/uL Lymphocytes # (1.0-4.8) k/uL Monocytes # (0-1.0) k/uL Eosinophils # (0-0.7) k/uL Basophils # (0-0.2) k/uL PT (9.0-12.0) sec INR (<1.2) APTT (22.0-30.0) sec Sodium (137-145) mmol/L Potassium (3.5-5.1) mmol/L Chloride (98-107) mmol/L Carbon Dioxide (22-30) mmol/L Anion Gap mmol/L BUN (9-20) mg/dL Creatinine (0.66-1.25) mg/dL Est GFR (CKD-EPI)AfAm (>60 ml/min/1.73 sqM) Est GFR (CKD-EPI)NonAf (>60 ml/min/1.73 sqM) Glucose (74-99) mg/dL Calcium (8.4-10.2) mg/dL Total Bilirubin (0.2-1.3) mg/dL AST (17-59) U/L ALT (4-49) U/L Alkaline Phosphatase (38-126) U/L Troponin I <0.012 (0.000-0.034) ng/mL Total Protein (6.3-8.2) g/dL Albumin (3.5-5.0) g/dL Disposition Clinical Impression: Chest pain, Dyspnea Disposition: ADMITTED IP TO THIS [facility] Condition: Stable Is patient prescribed a controlled substance at d/c from ED?: No Decision Date: 04/02/19 Decision Time: 23:01
[2019-04-02] MEDS ORDERED: NITROGLYCERIN SL TABS 0.4 MG TAB SUBLINGUAL PRN (22:56)
[2019-04-02] MEDS: IPRATROPIUM-ALBUTEROL 3 ML NEB INHALATION STA (23:04)
[2019-04-02] MEDS: methylPREDNISolone SOD SUCCI 125 MG/2 ML VIAL IV STA (23:50)
[2019-04-03 03:54] LABS: Cholesterol 143 mg/dL (<200); HDL Cholesterol 41 mg/dL (40-60); LDL Cholesterol,Calculated 81 mg/dL (0-99); Triglycerides 103 mg/dL (<150)
[2019-04-03] MEDS: ONDANSETRON 4 MG/2 ML VIAL IVP STA (04:26)
[2019-04-03 07:48] VITALS: RESP 18
[2019-04-03] MEDS ORDERED: ASPIRIN 325 MG TAB PO SCH (09:00)
[2019-04-03] MEDS ORDERED: AMINOPHYLLINE 500 MG/20 ML VIAL IV PRN (09:58)
[2019-04-03] MEDS ORDERED: CAFFEINE CITRATE 60 MG/3 ML VIAL IV PRN (09:58)
[2019-04-03] MEDS: CLOPIDOGREL 75 MG TAB PO SCH (10:46)
[2019-04-03] MEDS: ASPIRIN 81 MG PO SCH (10:46)
[2019-04-03] MEDS: AZITHROMYCIN 500 MG TAB PO STA (10:46)
[2019-04-03] MEDS: IPRATROPIUM-ALBUTEROL 3 ML NEB INHALATION STA (10:48)
--- NOTE | 2019-04-03 10:50 | P.CRDCN ---
History of Present Illness History of present illness: HISTORY OF PRESENTING ILLNESS This is a pleasant 63-year-old male past medical history significant for paroxysmal atrial fibrillation on long-term anticoagulation, coronary artery disease status post PCI, dyslipidemia, hypertension, seizure disorder, subarachnoid lesions, myocardial infarction and CVA in the past. He follows in the office with Dr. Sanders. We have been asked to see in consultation for chest pain. He states over the previous couple of days she has been experiencing a tight sensation in his chest associated with increased shortness of breath and a dry cough. His chest discomfort does not radiate to the arm, back, neck or jaw. He has also had some intermittent nausea, dizziness and palpitations. His chest discomfort is not associated with activity or exertion. She denies PND or orthopnea. Most recent cardiac catheterization performed February 2018 revealed a total occlusion of the RCA and a total occlusion of the distal LAD with a lesion in the mid LAD of approximately 70%. He underwent successful stent placement of the mid LAD at that time. Most recent echocardiogram obtained November 2018 revealed mildly impaired LV systolic function with ejection fraction 45-50%, moderate to severe MR. DIAGNOSTICS EKG reveals sinus mechanism with old anterior wall OK. Chest xray negative for an acute cardiopulmonary process. Laboratory reviewed, ABC unremarkable, INR 1.4, sodium 138, potassium 3.6, creatinine 0.75, cardiac enzymes negative 3, and T proBNP 446, LDL 81. Current cardiac medications include Coumadin, atorvastatin 80 mg daily, Plavix 75 mg daily, Imdur 30 mg daily, Lopressor 12.5 mg daily and lisinopril 2.5 mg at bedtime. REVIEW OF SYSTEMS At the time of my exam: CONSTITUTIONAL: Denies fever or chills. CARDIOVASCULAR: Denies chest pain, shortness of breath, orthopnea, PND or palpitations. RESPIRATORY: Denies cough. GASTROINTESTINAL: Denies abdominal pain, diarrhea, constipation, nausea or vomiting. MUSCULOSKELETAL: Denies myalgias. NEUROLOGIC: Denies numbness, tingling or weakness. ENDOCRINE: Denies fatigue, weight change, polydipsia or polyurina. GENITOURINARY: Denies burning, hematuria or urgency with micturation. HEMATOLOGIC: Denies history of anemia or bleeding. PHYSICAL EXAMINATION Blood pressure 148/82 heart rate 61 afebrile and maintaining oxygen saturation on room air. CONSTITUTIONAL: No apparent distress. HEENT: Head is normocephalic. Pupils are equal, round. Sclerae anicteric. Mucous membranes of the mouth are moist. No JVD. No carotid bruit. CHEST EXAMINATION: Lungs are clear to auscultation. No chest wall tenderness is noted on palpation or with deep breathing. Diminished bilaterally. HEART EXAMINATION: Regular rate and rhythm. S1, S2 heard. Faint systolic murmur at he left sternal border, no gallops or rub. ABDOMEN: Soft, nontender. Positive bowel sounds. EXTREMITIES: 2+ peripheral pulses, no lower extremity edema and no calf tenderness. NEUROLOGIC EXAMINATION: Patient is awake, alert and oriented x3. ASSESSMENT Chest pain, atypical. An acute coronary event has been ruled out. Coronary artery disease status post PCI 2017 with a chronic total occlusion of the RCA Paroxysmal atrial fibrillation on long-term anticoagulation Subtherapeutic INR Hypertension Dyslipidemia CVA Chronic nicotine dependence PLAN An acute coronary event has been ruled out. Recommend proceeding with a Lexiscan stress test to assess for stress-induced ischemia. We expect to find a fixed defect with partial reversibility secondary to CHAPERONE of the RCA and distal LAD. If there is significant reversibility we will consider coronary angiography. Discussed with him detail using Eliquis rather than coumadin. He is agreeable if the cost is reasonable. We will ask case management to look into this. Thank you kindly for this consultation. Nurse Practitioner note has been reviewed, I agree with a documented findings and plan of care. Patient was seen and examined. Past Medical History Past Medical History: COPD, Myocardial Infarction ([place]), Seizure Disorder Additional Past Medical History / Comment(s): 3 ruptured spine discs, 2 heart stents, stroke. VISION CHANGES, mitral valve placements. Last Myocardial Infarction Date:: 2002 History of Any Multi-Drug Resistant Organisms: None Reported Past Surgical History: No Surgical Hx Reported, Heart Catheterization With Stent Past Psychological History: Depression Smoking Status: Current every day smoker Past Alcohol Use History: Occasional Past Drug Use History: Marijuana - Past Family History Mother Family Medical History: Congestive Heart Failure (CHF), CVA/TIA, Diabetes Mellitus Father Family Medical History: Congestive Heart Failure (CHF), Myocardial Infarction ([place]) Medications and Allergies Home Medications Medication Instructions Recorded Confirmed Type Acetaminophen Tab [Tylenol] 325 mg PO Q6H PRN 03/02/18 04/03/19 History Atorvastatin [Lipitor] 80 mg PO HS 03/02/18 04/03/19 History Divalproex Sodium [Depakote] 500 mg PO BID 03/02/18 04/03/19 History Isosorbide Mononitrate ER [Imdur] 30 mg PO PC-LUNCH 03/02/18 04/03/19 History Nitroglycerin Sl Tabs [Nitrostat] 0.4 mg SUBLINGUAL Q5M PRN #15 tab 03/04/18 04/03/19 Rx Clopidogrel [Plavix] 75 mg PO QAM 02/07/19 04/03/19 History Warfarin Sodium [Coumadin] 5 mg PO MOTUTHFRSA 02/07/19 04/03/19 History Apixaban [Eliquis] 5 mg PO BID #60 tab 04/03/19 Rx Lisinopril [Zestril] 2.5 mg PO HS 04/03/19 04/03/19 History Metoprolol Tartrate [Lopressor] 12.5 mg PO [id number] 04/03/19 04/03/19 History Allergies Allergy/AdvReac Type Severity Reaction Status Date / Time No Known Allergies Allergy Verified 04/02/19 20:51 Physical Exam Vitals: Vital Signs Temp Pulse Pulse Pulse Resp BP BP 04/03/19 08:29 97.5 F L 65 61 18 138/102 148/82 04/03/19 07:43 65 18 138/102 04/03/19 04:27 97.7 F 62 17 144/85 04/03/19 04:14 58 L 04/03/19 01:06 97.9 F 62 18 152/73 04/03/19 00:12 55 L 20 04/02/19 23:10 56 L 04/02/19 23:04 53 L 04/02/19 22:30 52 L 20 160/92 04/02/19 22:00 56 L 20 145/77 04/02/19 21:50 53 L 20 108/86 04/02/19 21:01 22 04/02/19 20:48 98.2 F 57 L 22 167/90 Pulse Ox 04/03/19 08:29 97 04/03/19 07:43 98 04/03/19 04:27 98 04/03/19 04:14 04/03/19 01:06 99 04/03/19 00:12 96 04/02/19 23:10 04/02/19 23:04 04/02/19 22:30 99 04/02/19 22:00 99 04/02/19 21:50 98 04/02/19 21:01 04/02/19 20:48 98 Intake and Output 04/02/19 04/03/19 04/03/19 22:59 06:59 14:59 Other: Weight 76.204 kg Results 04/02/19 21:30 04/02/19 21:30 Cardiac Enzymes 04/02/19 04/02/19 04/03/19 Range/Units 21:30 21:30 03:32 AST 30 (17-59) U/L Troponin I <0.012 <0.012 (0.000-0.034) ng/mL Coagulation 04/02/19 Range/Units 21:30 PT 14.4 H (9.0-12.0) sec APTT 30.6 H (22.0-30.0) sec Lipids 04/03/19 Range/Units 03:32 Triglycerides 103 (<150) mg/dL Cholesterol 143 (<200) mg/dL HDL Cholesterol 41 (40-60) mg/dL CBC 04/02/19 Range/Units 21:30 WBC 8.9 (3.8-10.6) k/uL RBC 4.48 (4.30-5.90) m/uL Hgb 14.0 (13.0-17.5) gm/dL Hct 42.0 (39.0-53.0) % Plt Count 179 (150-450) k/uL Comprehensive Metabolic Panel 04/02/19 Range/Units 21:30 Sodium 138 (137-145) mmol/L Potassium 3.6 (3.5-5.1) mmol/L Chloride 104 (98-107) mmol/L Carbon Dioxide 25 (22-30) mmol/L BUN 22 H (9-20) mg/dL Creatinine 0.75 (0.66-1.25) mg/dL Glucose 101 H (74-99) mg/dL Calcium 9.4 (8.4-10.2) mg/dL AST 30 (17-59) U/L ALT 20 (4-49) U/L Alkaline Phosphatase 85 (38-126) U/L Total Protein 7.2 (6.3-8.2) g/dL Albumin 4.5 (3.5-5.0) g/dL Current Medications Generic Name Dose Route Start Last Admin Trade Name Freq PRN Reason Stop Dose Admin Aspirin 325 mg 04/03/19 09:00 Aspirin PO DAILY DUNG Nitroglycerin 0.4 mg 04/02/19 22:56 Nitrostat SUBLINGUAL Q5M PRN Chest Pain Intake and Output 04/02/19 04/03/19 04/03/19 22:59 06:59 14:59 Other: Weight 76.204 kg 04/02/19 21:30 04/02/19 21:30
[2019-04-03] MEDS: REGADENOSON 0.4 MG/5 ML SYRINGE IV ONE (12:40)
[2019-04-03] MEDS: DIVALPROEX 500 MG TABLET.DR PO SCH (12:45)
[2019-04-03] MEDS: ISOSORBIDE MONONITRATE ER 30 MG TAB.ER.24H PO SCH (12:45)
--- NOTE | 2019-04-03 13:25 | NM ---
EXAMINATION TYPE: NM stress lexiscan cardiolite DATE OF EXAM: 04/03/2019 COMPARISON: NONE HISTORY: Chest pain, history of myocardial infarct TECHNIQUE: After the intravenous administration of 10.46 mCi Tc 99m Sestamibi - Cardiolite resting S PECT images acquired 55 minutes post injection. The patient received 0.4mg Lexiscan, 27 mCi Tc 99m Sestamibi - Stress images obtained 30 minutes post injection FINDINGS: Review of stress and rest SPECT images demonstrates decreased uptake along the inferior wall left zakiya tricle on stress as compared to rest imaging extending to the apex and involving portions of the infe rolateral and inferoseptal whitman. Some decreased uptake along the apex on stress and rest images sug gest prior infarct. Gated analysis shows normal wall motion with an estimated left ventricular ejecti on fraction of 52 %. 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
[2019-04-03] MEDS ORDERED: WARFARIN 5 MG TAB PO SCH (13:30)
[2019-04-03] MEDS: ACETAMINOPHEN TAB 325 MG TAB PO PRN (13:59)
--- NOTE | 2019-04-03 13:59 | EST ---
EXERCISE STRESS AGE: 63 SEX: M HT: 67" WT: 168 PROTOCOL: Lexiscan Cardiolite Stress Test HEART RATE REST: 105 BLOOD PRESSURE REST: 154/87 MAXIMUM HEART RATE ACHIEVED: 98 MAXIMUM BLOOD PRESSURE: 162/93 CLINICAL INFORMATION: Lexiscan Cardiolite study was performed. Peak heart rate of 98 was achieved. Maximum blood pressure of 154/87 mmHg was noted. No ST-segment depression. A resting EKG shows normal sinus rhythm with normal [place] interval and QRS duration and normal ST-T waves, nonspecific ST-% changes. No significant ST-segment change from the baseline was noted. The results of the nuclear study will follow. MMODL / IJN: [id number] /
[2019-04-03] MEDS: APIXABAN 5 MG TAB PO SCH (15:14)
[2019-04-03 15:33] VITALS: BP 131/81; PULSE 73; TEMP 98.5
--- NOTE | 2019-04-03 17:24 | P.HPIM ---
History of Present Illness Please consider this note as combined H&P and discharge summary This is a pleasant 63 years old male with past medical history of COPD, myocardial infarction, seizure disorder, mitral valve replacement, status post stent placement. Presents because of chest pain and dyspnea. Patient states that he has mild chest discomfort rather than pain, central and an upper abdomen of 2 days' duration associated with little dyspnea, mild sore throat, runny nose and nasal plugging he got some mild dizziness. Currently patient feels well still mild chest discomfort, his respiratory symptoms are mild and patient is able to move around with no difficulty. assistant store manager operations evaluated pt and recommended a stress test which came back positive as expected by assistant store manager operations but there is no significant reversibility to consider coronary angiography. eventually assistant store manager operations recommended outpatient follow up and no need for any farther cardiac testing or procedure in-house and assistant store manager operations cleared him for discharge pt is on room air and not tachycardic and D-Dimer came back negative at 0.38. He has history of mitral valve replacement on Coumadin with subtherapeutic INR at 1.4, and assistant store manager operations switched him to eliquis , pt agrees to its co-pay of $ 42 dollars as he told me, importance of compliance is explained to him and risks including but not limited to risk of thrombosis, stroke , PE and heart attack and organ dysfunction and/or are explained for him and he verbalized understanding and acceptance He smokes about 1-2 cigars per day with no alcohol or illicit drugs. Patient is counseled and he wants to quit on himself, he declined nicotine patch patient Vitas looks stable. Labs including CBC, BMP, liver enzymes were unremarkable, serial troponins are negative with less than 0.012, proBNP is low at 446, Lipitor profile is within normal, INR is 1.4. Chest x-ray: No acute process. EKG showing sinus bradycardia at [address]-T changes eventually pt was cleared by assistant store manager operations for discharge pt with upper resp s/s , influenza is negative and he is going to be discharge on short course of zithromax Review of Systems CONSTITUTIONAL: No fever, no malaise, no fatigue. HEENT: No recent visual problems or hearing problems. Denied any sore throat. CARDIOVASCULAR: No orthopnea, PND, no palpitations, no syncope. PULMONARY: No shortness of breath, no cough, no hemoptysis. GASTROINTESTINAL: No diarrhea, no nausea, no vomiting, no abdominal pain. Normoactive bowel sounds. NEUROLOGICAL: No headaches, no weakness, no numbness. HEMATOLOGICAL: Denies any bleeding or petechiae. GENITOURINARY: Denies any burning micturition, frequency, or urgency. MUSCULOSKELETAL/RHEUMATOLOGICAL: Denies any joint pain, swelling, or any muscle pain. ENDOCRINE: Denies any polyuria or polydipsia. Past Medical History Past Medical History: COPD, Myocardial Infarction ([place]), Seizure Disorder Additional Past Medical History / Comment(s): 3 ruptured spine discs, 2 heart stents, stroke. VISION CHANGES, mitral valve placements. Last Myocardial Infarction Date:: 2002 History of Any Multi-Drug Resistant Organisms: None Reported Past Surgical History: No Surgical Hx Reported, Heart Catheterization With Stent Additional Past Surgical History / Comment(s): PCIs with stents Past Anesthesia/Blood Transfusion Reactions: Unable to Obtain Additional Past Anesthesia/Blood Transfusion Reaction / Comment(s): Pt has never had general anesthesia Date of Last Stent Placement:: 01/2019 Past Psychological History: Depression Smoking Status: Current every day smoker Past Alcohol Use History: Occasional Past Drug Use History: Marijuana - Past Family History Mother Family Medical History: Congestive Heart Failure (CHF), CVA/TIA, Diabetes Mellitus Additional Family Medical History / Comment(s): Mother of CHF/pneumonia at the age of 64 yrs. Father Family Medical History: Congestive Heart Failure (CHF), Myocardial Infarction ([place]) Additional Family Medical History / Comment(s): Father of a massive MN at the age of 54yrs. Medications and Allergies Home Medications Medication Instructions Recorded Confirmed Type Acetaminophen Tab [Tylenol] 325 mg PO Q6H PRN 03/02/18 04/03/19 History Atorvastatin [Lipitor] 80 mg PO HS 03/02/18 04/03/19 History Divalproex Sodium [Depakote] 500 mg PO HS 03/02/18 04/03/19 History Isosorbide Mononitrate ER [Imdur] 30 mg PO DAILY@1200 03/02/18 04/03/19 History Nitroglycerin Sl Tabs [Nitrostat] 0.4 mg SUBLINGUAL Q5M PRN #15 tab 03/04/18 04/03/19 Rx Clopidogrel [Plavix] 75 mg PO QAM 02/07/19 04/03/19 History Albuterol Sulfate [Ventolin HFA] 2 puff INHALATION RT-QID PRN 04/03/19 04/03/19 History Apixaban [Eliquis] 5 mg PO BID #60 tab 04/03/19 Rx Azithromycin [Zithromax] 250 mg PO DAILY #5 tab 04/03/19 Rx Hydrochlorothiazide [Hydrodiuril] 25 mg PO DAILY@1200 04/03/19 04/03/19 History Lisinopril [Zestril] 2.5 mg PO HS 04/03/19 04/03/19 History Metoprolol Tartrate [Lopressor] 12.5 mg PO [id number] 04/03/19 04/03/19 History Allergies Allergy/AdvReac Type Severity Reaction Status Date / Time No Known Allergies Allergy Verified 04/02/19 20:51 Physical Exam Vitals: Vital Signs Temp Pulse Pulse Pulse Resp BP BP 04/03/19 11:00 52 L 04/03/19 10:50 48 L 04/03/19 08:29 97.5 F L 65 61 18 138/102 148/82 04/03/19 07:43 65 18 138/102 04/03/19 04:27 97.7 F 62 17 144/85 04/03/19 04:14 58 L 04/03/19 01:06 97.9 F 62 18 152/73 04/03/19 00:12 55 L 20 04/02/19 23:10 56 L 04/02/19 23:04 53 L 04/02/19 22:30 52 L 20 160/92 04/02/19 22:00 56 L 20 145/77 04/02/19 21:50 53 L 20 108/86 04/02/19 21:01 22 04/02/19 20:48 98.2 F 57 L 22 167/90 Pulse Ox 04/03/19 11:00 04/03/19 10:50 04/03/19 08:29 97 04/03/19 07:43 98 04/03/19 04:27 98 04/03/19 04:14 04/03/19 01:06 99 04/03/19 00:12 96 04/02/19 23:10 04/02/19 23:04 04/02/19 22:30 99 04/02/19 22:00 99 04/02/19 21:50 98 04/02/19 21:01 04/02/19 20:48 98 Intake and Output 04/02/19 04/03/19 04/03/19 22:59 06:59 14:59 Other: Voiding Method Toilet Weight 76.204 kg 76.204 kg GENERAL: The patient is alert and oriented x3, not in any acute distress. Well developed, well nourished. HEENT: Pupils are round and equally reacting to light. EOMI. No scleral icterus. No conjunctival pallor. Normocephalic, atraumatic. No pharyngeal erythema. No thyromegaly. CARDIOVASCULAR: S1 and S2 present. No murmurs, rubs, or gallops. PULMONARY: Chest is clear to auscultation, no wheezing or crackles. ABDOMEN: Soft, nontender, nondistended, normoactive bowel sounds. No palpable organomegaly. MUSCULOSKELETAL: No joint swelling or deformity. EXTREMITIES: No cyanosis, clubbing, or pedal edema. NEUROLOGICAL: Gross neurological examination did not reveal any focal deficits. SKIN: No rashes. No petechiae Results CBC & Chem 7: 04/02/19 21:30 04/02/19 21:30 Labs: Abnormal Lab Results - Last 24 Hours (Table) 04/02/19 04/02/19 Range/Units 21:30 21:30 PT 14.4 H (9.0-12.0) sec INR 1.4 H (<1.2) APTT 30.6 H (22.0-30.0) sec BUN 22 H (9-20) mg/dL Glucose 101 H (74-99) mg/dL Thrombosis Risk Factor Assmnt - Choose All That Apply Any of the Below Risk Factors Present?: Yes Each Factor Represents 1 point: Abnormal pulmonary function (COPD), Obesity (BMI >25) Other Risk Factors: Yes Each Risk Factor Represents 2 Points: Age 61-74 years Other congenital or acquired thrombophilia - If yes, enter type in comment: No Thrombosis Risk Factor Assessment Total Risk Factor Score: 4 Thrombosis Risk Factor Assessment Level: Moderate Risk Assessment and Plan Assessment: Chest discomfort with little dyspnea suspicious for cardiac causes. Patient has positive stress test Upper respiratory symptoms, rule out influenza History of mitral valve replacement on Coumadin with subtherapeutic INR. Cardiology switch him to Eliquis, patient is still any his co-pay is $42 and he is okay with it History of seizure disorder COPD without acute exacerbation Nicotine dependence Plan: This is a pleasant 63 years old male who presents with chest discomfort and respiratory symptoms. His stress test came back positive but per assistant store manager operations recommendation this is expected and he does not need any further testing and he can be discharge home today. pt with upper resp s/s , influenza is negative and he is going to be discharge on short course of zithromax Patient has low suspicion for PE, he is already on Eliquis and he has positive cardiac findings Labs and medication were reviewed.. Continue same treatment. Continue with symptomatic treatment. Resume home medication. Monitor lytes and vitals. DVT and GI prophylaxis. Further recommendations of the clinical course of the patient DVT prophylaxis:Eliquis GI Prophylaxis: Pepcid
[2019-04-03] MEDS ORDERED: ATORVASTATIN 80 MG TAB PO SCH (21:00)
[2019-04-03] MEDS ORDERED: LISINOPRIL 2.5 MG TAB PO SCH (21:00)
[2019-04-04] MEDS ORDERED: METOPROLOL TARTRATE 12.5 MG TAB PO SCH (07:30)
[2019-04-04] MEDS ORDERED: AZITHROMYCIN 250 MG TAB PO SCH (09:00)
== END 2019-04-03 18:53 | disposition home or self-care (01) ==
LOC: EC 20:43 → 1SOBS 22:33
PROVIDERS: ADMIT Internal Medicine; ATTEND Internal Medicine
DX: R07.89 Other chest pain (principal); R05 Cough; R06.00 Dyspnea, unspecified; I48.0 Paroxysmal atrial fibrillation; J44.9 Chronic obstructive pulmonary disease, unspecified; G40.909 Epilepsy, unspecified, not intractable, without status epilepticus; I25.2 Old myocardial infarction; I25.10 Atherosclerotic heart disease of native coronary artery without angina pectoris; Z95.5 Presence of coronary angioplasty implant and graft; Z86.73 Personal history of transient ischemic attack (TIA), and cerebral infarction without residual deficits; F32.9 Major depressive disorder, single episode, unspecified; F17.290 Nicotine dependence, other tobacco product, uncomplicated; Z95.4 Presence of other heart-valve replacement; E78.5 Hyperlipidemia, unspecified; Z71.6 Tobacco abuse counseling; Z79.02 Long term (current) use of antithrombotics/antiplatelets; Z79.01 Long term (current) use of anticoagulants; Z79.899 Other long term (current) drug therapy; Z83.3 Family history of diabetes mellitus; Z82.3 Family history of stroke; Z82.49 Family history of ischemic heart disease and other diseases of the circulatory system
CPT/HCPCS: 96374; 96375; 99285; 36415; 94640 ×2; 93005 ×2; 93017; 85379; 83880; 80061; 80053; 84484 ×2; 85025; 85610; 85730; 87502; 71046; 78452; G0378 ×2; A9500; J2930; J2405; J2785

== ENCOUNTER → 2019-04-19 | Outpatient (CLI) | payer MEDICARE ==
--- NOTE | 2019-04-19 15:18 | US ---
EXAMINATION TYPE: US carotid duplex BILAT DATE OF EXAM: 04/19/2019 COMPARISON: NONE CLINICAL HISTORY: I25.10 Atherosclerotic heart disease of [place]. EXAM MEASUREMENTS: RIGHT: Peak Systolic Velocity (PSV) cm/sec ----- Right CCA: 52.0 ----- Right ICA: 61.6 ----- Right ECA: 122.2 ICA/CCA ratio: 1.2 RIGHT: End Diastole cm/sec ----- Right CCA: 16.2 ----- Right ICA: 18.9 ----- Right ECA: 17.1 LEFT: Peak Systolic Velocity (PSV) cm/sec ----- Left CCA: 60.6 ----- Left ICA: 73.9 ----- Left ECA: 82.2 ICA/CCA ratio: 1.2 LEFT: End Diastole cm/sec ----- Left CCA: 19.6 ----- Left ICA: 26.7 ----- Left ECA: 12.8 VERTEBRALS (direction of flow): Right Vertebral: Antegrade Left Vertebral: Antegrade Rhythm: Normal Grayscale, color Doppler, spectral Doppler imaging performed of the carotid arteries. No significant velocity elevations, mild plaque. Waveform analysis does not show significant stenosis of the internal carotid arteries. IMPRESSION: No hemodynamic significant stenosis of the proximal internal carotid arteries by Doppler criteria, an indirect measurement of carotid stenosis
== END | disposition home or self-care (01) ==
LOC: RADUSMAIN 13:56
PROVIDERS: ATTEND Family Medicine
DX: I25.10 Atherosclerotic heart disease of native coronary artery without angina pectoris (principal)
CPT/HCPCS: 93880

== ENCOUNTER 2019-05-06 11:00 | Observation (INO) | payer MEDICARE ==
[2019-05-06] MEDS ORDERED: NITROGLYCERIN OINT 1 INCH/GM PACKET TOPICAL STA (11:18)
[2019-05-06] MEDS ORDERED: ASPIRIN 81 MG PO STA (11:18)
--- NOTE | 2019-05-06 11:22 | ED ---
General Adult HPI - General Chief complaint: Chest Pain Stated complaint: Chest Pain/Dizzy Time Seen by Provider: 05/06/19 11:00 Source: patient, RN notes reviewed, old records reviewed Mode of arrival: wheelchair Limitations: no limitations - History of Present Illness Initial comments: This is a 63-year-old male who presents emergency Department complaining of chest pain. Patient has a past medical history significant for smoking high blood pressure high cholesterol and is also had a stent placed for previous OK. Patient states she also has a strong family history of heart disease. Patient states the pain has been ongoing for the last 3 days but it is been intermittent in nature. Patient states she also has had some sweating episodes as well. Patient denies any radiation of the pain. Patient denies any shortness of breath more than normal. Patient states he does have an occasional cough. Has occasional cough. Patient denies any fever chills. Patient denies any lightheadedness or dizziness. Patient denies any headache patient denies numbness weakness. Patient denies abdominal pain patient denies any nausea vomiting diarrhea. - Related Data Home Medications Medication Instructions Recorded Confirmed Atorvastatin [Lipitor] 80 mg PO HS 03/02/18 05/06/19 Divalproex Sodium [Depakote] 500 mg PO BID 03/02/18 05/06/19 Isosorbide Mononitrate ER [Imdur] 30 mg PO DAILY@1200 03/02/18 05/06/19 Albuterol Sulfate [Ventolin HFA] 2 puff INHALATION RT-QID PRN 04/03/19 05/06/19 Hydrochlorothiazide [Hydrodiuril] 25 mg PO DAILY@1200 04/03/19 05/06/19 Lisinopril [Zestril] 2.5 mg PO HS 04/03/19 05/06/19 Metoprolol Tartrate [Lopressor] 12.5 mg PO DAILY 04/03/19 05/06/19 Clopidogrel Bisulfate [Plavix] 75 mg PO DAILY 05/06/19 05/06/19 Warfarin Sodium [Coumadin] 5 mg PO MOTUTHFRSA 05/06/19 05/06/19 Zolpidem Tartrate [Ambien] 10 mg PO HS PRN 05/06/19 05/06/19 Previous Rx's Medication Instructions Recorded Nitroglycerin Sl Tabs [Nitrostat] 0.4 mg SUBLINGUAL Q5M PRN #15 tab 03/04/18 Allergies Allergy/AdvReac Type Severity Reaction Status Date / Time apixaban [From Eliquis] Allergy Unknown Verified 05/06/19 12:45 Review of Systems ROS Statement: Those systems with pertinent positive or pertinent negative responses have been documented in the HPI. ROS Other: All systems not noted in ROS Statement are negative. Past Medical History Past Medical History: COPD, Myocardial Infarction ([place]), Seizure Disorder Additional Past Medical History / Comment(s): 3 ruptured spine discs, 2 heart stents, stroke. VISION CHANGES, mitral valve placements. Last Myocardial Infarction Date:: 2002 History of Any Multi-Drug Resistant Organisms: None Reported Past Surgical History: No Surgical Hx Reported, Heart Catheterization With Stent Additional Past Surgical History / Comment(s): PCIs with stents Past Anesthesia/Blood Transfusion Reactions: Unable to Obtain Additional Past Anesthesia/Blood Transfusion Reaction / Comment(s): Pt has never had general anesthesia Date of Last Stent Placement:: 01/2019 Past Psychological History: Depression Smoking Status: Current every day smoker Past Alcohol Use History: Occasional Past Drug Use History: Marijuana - Past Family History Mother Family Medical History: Congestive Heart Failure (CHF), CVA/TIA, Diabetes Mellitus Additional Family Medical History / Comment(s): Mother of CHF/pneumonia at the age of 64 yrs. Father Family Medical History: Congestive Heart Failure (CHF), Myocardial Infarction ([place]) Additional Family Medical History / Comment(s): Father of a massive OK at the age of 54yrs. General Exam - General Exam Comments Initial Comments: GENERAL: Patient is well-developed and well-nourished. Patient is nontoxic and well- hydrated and is in mild distress. ENT: Neck is soft and supple. No significant lymphadenopathy is noted. Oropharynx is clear. Moist mucous membranes. Neck has full range of motion without eliciting any pain. EYES: The sclera were anicteric and conjunctiva were pink and moist. Extraocular movements were intact and pupils were equal round and reactive to light. Eyelids were unremarkable. PULMONARY: Unlabored respirations. Good breath sounds bilaterally. No audible rales rhonchi or wheezing was noted. CARDIOVASCULAR: There is a regular rate and rhythm without any murmurs gallops or rubs. ABDOMEN: Soft and nontender with normal bowel sounds. SKIN: Skin is clear with no lesions or rashes and otherwise unremarkable. NEUROLOGIC: Patient is alert and oriented x3. Cranial nerves II through XII are grossly intact. Motor and sensory are also intact. Normal speech, volume and content. Symmetrical smile. MUSCULOSKELETAL: Normal extremities with adequate strength and full range of motion. LYMPHATICS: No significant lymphadenopathy is noted PSYCHIATRIC: Normal psychiatric evaluation. Limitations: no limitations Course Vital Signs 05/06/19 05/06/19 05/06/19 11:03 11:31 11:41 Temperature 97.9 F Pulse Rate 82 97 Pulse Rate [ 98 Management Associate ] Respiratory 16 18 Rate Blood Pressure 114/75 123/91 O2 Sat by Pulse 98 97 Oximetry Medical Decision Making - Medical Decision Making EKG shows atrial fibrillation with rapid ventricular response at 105 bpm QRS is 80 QT interval 3:30 QTC is 436 per patient's EKG shows no ST segment elevation or depression. Patient states that history of atrial fibrillation. Chest x-ray shows no acute abnormality. I spoke with Dr. Agrawal he agreed to admit the patient admitted the patient consult to cardiology. Patient is post to be on Coumadin but the INR is 1.1/started the patient on heparin. I continued heparin and aspirin and Nitropaste on the floor. - Lab Data Result diagrams: 05/06/19 11:39 05/06/19 11:39 Lab Results 05/06/19 05/06/19 05/06/19 Range/Units 11:39 11:39 11:39 WBC 11.8 H (3.8-10.6) k/uL RBC 4.94 (4.30-5.90) m/uL Hgb 15.8 (13.0-17.5) gm/dL Hct 46.3 (39.0-53.0) % MCV 93.7 (80.0-100.0) fL MCH 32.0 (25.0-35.0) pg MCHC 34.1 (31.0-37.0) g/dL RDW 13.6 (11.5-15.5) % Plt Count 227 (150-450) k/uL Neutrophils % 72 % Lymphocytes % 20 % Monocytes % 4 % Eosinophils % 3 % Basophils % 1 % Neutrophils # 8.5 H (1.3-7.7) k/uL Lymphocytes # 2.4 (1.0-4.8) k/uL Monocytes # 0.5 (0-1.0) k/uL Eosinophils # 0.3 (0-0.7) k/uL Basophils # 0.1 (0-0.2) k/uL PT (9.0-12.0) sec INR (<1.2) APTT (22.0-30.0) sec Sodium 140 (137-145) mmol/L Potassium 4.0 (3.5-5.1) mmol/L Chloride 103 (98-107) mmol/L Carbon Dioxide 21 L (22-30) mmol/L Anion Gap 16 mmol/L BUN 25 H (9-20) mg/dL Creatinine 0.82 (0.66-1.25) mg/dL Est GFR (CKD-EPI)AfAm >90 (>60 ml/min/1.73 sqM) Est GFR (CKD-EPI)NonAf >90 (>60 ml/min/1.73 sqM) Glucose 108 H (74-99) mg/dL Calcium 9.5 (8.4-10.2) mg/dL Magnesium 1.9 (1.6-2.3) mg/dL Total Bilirubin 1.0 (0.2-1.3) mg/dL AST 33 (17-59) U/L ALT 20 (4-49) U/L Alkaline Phosphatase 76 (38-126) U/L Troponin I 0.013 (0.000-0.034) ng/mL Total Protein 8.0 (6.3-8.2) g/dL Albumin 4.8 (3.5-5.0) g/dL 05/06/19 Range/Units 12:20 WBC (3.8-10.6) k/uL RBC (4.30-5.90) m/uL Hgb (13.0-17.5) gm/dL Hct (39.0-53.0) % MCV (80.0-100.0) fL MCH (25.0-35.0) pg MCHC (31.0-37.0) g/dL RDW (11.5-15.5) % Plt Count (150-450) k/uL Neutrophils % % Lymphocytes % % Monocytes % % Eosinophils % % Basophils % % Neutrophils # (1.3-7.7) k/uL Lymphocytes # (1.0-4.8) k/uL Monocytes # (0-1.0) k/uL Eosinophils # (0-0.7) k/uL Basophils # (0-0.2) k/uL PT 11.7 (9.0-12.0) sec INR 1.1 (<1.2) APTT 26.5 (22.0-30.0) sec Sodium (137-145) mmol/L Potassium (3.5-5.1) mmol/L Chloride (98-107) mmol/L Carbon Dioxide (22-30) mmol/L Anion Gap mmol/L BUN (9-20) mg/dL Creatinine (0.66-1.25) mg/dL Est GFR (CKD-EPI)AfAm (>60 ml/min/1.73 sqM) Est GFR (CKD-EPI)NonAf (>60 ml/min/1.73 sqM) Glucose (74-99) mg/dL Calcium (8.4-10.2) mg/dL Magnesium (1.6-2.3) mg/dL Total Bilirubin (0.2-1.3) mg/dL AST (17-59) U/L ALT (4-49) U/L Alkaline Phosphatase (38-126) U/L Troponin I (0.000-0.034) ng/mL Total Protein (6.3-8.2) g/dL Albumin (3.5-5.0) g/dL Critical Care Time Critical Care Time: Yes Total Critical Care Time: 35 Disposition Clinical Impression: Unstable angina pectoris Disposition: ADMITTED IP TO THIS HOSP Referrals: Felipa Weber MD [Primary Care Provider] - 1-2 days Time of Disposition: 13:10
[2019-05-06 11:47] LABS: Basophils # (A) 0.1 k/uL (0-0.2); Basophils % (A) 1 %; Eosinophils # (A) 0.3 k/uL (0-0.7); Eosinophils % (A) 3 %; HCT 46.3 % (39.0-53.0); HGB 15.8 gm/dL (13.0-17.5); Lymphocytes # (A) 2.4 k/uL (1.0-4.8); Lymphocytes % (A) 20 %; MCHC 34.1 g/dL (31.0-37.0); MCV 93.7 fL (80.0-100.0); Mean Platelet Volume 8.6; Monocytes # (A) 0.5 k/uL (0-1.0); Monocytes % (A) 4 %; Neutrophils # (A) 8.5 k/uL (1.3-7.7); Neutrophils % (A) 72 %; Platelet Count 227 k/uL (150-450); RBC 4.94 m/uL (4.30-5.90); RDW 13.6 % (11.5-15.5); WBC 11.8 k/uL (3.8-10.6)
[2019-05-06 12:11] LABS: ALT 20 U/L (4-49); African American GFR (CKD) >90 (>60 ml/min/1.73 sqM); Albumin 4.8 g/dL (3.5-5.0); Anion Gap 16 mmol/L; Blood Urea Nitrogen 25 mg/dL (9-20); Calcium 9.5 mg/dL (8.4-10.2); Carbon Dioxide 21 mmol/L (22-30); Chloride 103 mmol/L (98-107); Glucose 108 mg/dL (74-99); Non-African American GFR(CKD) >90 (>60 ml/min/1.73 sqM); Sodium 140 mmol/L (137-145)
[2019-05-06 12:12] LABS: AST 33 U/L (17-59); Alkaline Phosphatase 76 U/L (38-126); Magnesium 1.9 mg/dL (1.6-2.3)
[2019-05-06 12:44] LABS: INR 1.1 (<1.2); Partial Thromboplastin Time 26.5 sec (22.0-30.0); Prothrombin Time 11.7 sec (9.0-12.0)
--- NOTE | 2019-05-06 12:46 | XR ---
EXAMINATION TYPE: XR chest 2V DATE OF EXAM: 05/06/2019 HISTORY: Chest Pain. REFERENCE: Previous study dated 04/02/2019. FINDINGS: Lungs are overinflated but clear. Pleural space are clear. The heart is not enlarged. IMPRESSION: COPD.
[2019-05-06] MEDS ORDERED: HEPARIN SODIUM,PORCINE 5,000 UNIT/ML 1 ML VIAL IV ONE (13:10)
[2019-05-06] MEDS ORDERED: NITROGLYCERIN SL TABS 0.4 MG TAB SUBLINGUAL PRN ×2 (13:10→13:44)
[2019-05-06] MEDS ORDERED: HEPARIN SOD,PORK IN 0.45% NACL 25,000 UNIT in 0.45% NACL 1 250ML.BAG IV SCH ×2 (13:15→15:00)
[2019-05-06] MEDS ORDERED: ALBUTEROL NEBULIZED 2.5 MG/3 ML INHALATION PRN (13:44)
[2019-05-06] MEDS ORDERED: ZOLPIDEM 10 MG TAB PO PRN (13:44)
[2019-05-06] MEDS ORDERED: ACETAMINOPHEN TAB 500 MG TAB PO PRN (13:45)
[2019-05-06] MEDS ORDERED: ALPRAZolam 0.25 MG TAB PO PRN (13:45)
[2019-05-06] MEDS ORDERED: WARFARIN 5 MG TAB PO SCH (13:45)
[2019-05-06] MEDS ORDERED: HYDROcodone/APAP 5-325MG 1 EACH TAB PO PRN (13:45)
[2019-05-06] MEDS ORDERED: TEMAZEPAM 15 MG CAP PO PRN (13:45)
[2019-05-06] MEDS: METOPROLOL TARTRATE 25 MG TAB PO SCH ×2 (15:06→19:27)
[2019-05-06] MEDS: NITROGLYCERIN OINT 1 INCH/GM PACKET TOPICAL SCH ×2 (17:29→22:37)
[2019-05-06] MEDS ORDERED: WARFARIN 7.5 MG TAB PO ONE ×2 (18:00)
[2019-05-06] MEDS: DIVALPROEX 500 MG TABLET.DR PO SCH (19:28)
[2019-05-06] MEDS ORDERED: ATORVASTATIN 80 MG TAB PO SCH (21:00)
[2019-05-06] MEDS ORDERED: APIXABAN 5 MG TAB PO SCH (21:00)
[2019-05-06] MEDS ORDERED: LISINOPRIL 2.5 MG TAB PO SCH (21:00)
--- NOTE | 2019-05-06 22:37 | HP ---
HISTORY AND PHYSICAL DATE OF SERVICE: 05/06/2019 CHIEF COMPLAINT: Chest pain. HISTORY OF PRESENT ILLNESS: This 63-year-old gentleman with the past medical history of multiple medical problems including history of mitral replacement, history of seizure disorder, history of COPD, nicotine dependence, being followed by Dr. Weber in the outpatient setting previously had a recent stress test which apparently showed some old infarct with angina and patient currently is complaining of recurrence of pains. The patient continued to smoke. The pain is currently seated in the left lower chest and left anterior part of chest without radiation, mostly heavy in character, had some elements of sweating episodes. The patient also reports significant social stressors and patient came to [facility] and was admitted for further evaluation and treatment. There is no history of fever, rigors or chills. No history of headache, loss of consciousness, seizures. The patient had atrial fibrillation with rapid ventricular rate and patient started on IV heparin. PAST MEDICAL HISTORY: Positive stress test as mentioned earlier. History of COPD, myocardial infarction, seizure disorder, history of cardiac stents, history of depression, history of nicotine dependence. MEDICATIONS: Prior to admission home medications are: 1. Lopressor 12.5 mg p.o. daily. 2. Ambien 10 mg q.h.s. p.r.n. 3. Nitrostat 0.4 mg p.r.n. 4. Plavix 75 mg p.o. daily. 5. Coumadin 5 mg Wednesday, Wednesday, , Wednesday, Wednesday. 6. Zestril 2.5 mg q.h.s. 7. Imdur 30 mg p.o. daily. 8. HydroDIURIL 25 mg. 9. Depakote 500 mg p.o. b.i.d. 10.Lipitor 80 mg. 11.Ventolin HFA 2 puffs q.i.d. p.r.n. ALLERGIES: ELIQUIS. FAMILY HISTORY: History of CHF, CVA, TIA, diabetes type 2, history of pneumonia in the family. SOCIAL HISTORY: History of smoking, continued ongoing. Otherwise social stressors also. REVIEW OF SYSTEMS: ENT: Diminished vision. Diminished hearing. CARDIOVASCULAR system as mentioned earlier. GI: No nausea or vomiting. : No dysuria. NERVOUS SYSTEM: No numbness or weakness. ALLERGY/IMMUNOLOGY: No asthma or hayfever. MUSCULOSKELETAL as mentioned earlier. HEMATOLOGY/ONCOLOGY: No history of anemia. ENDOCRINE: No history of diabetes or hypothyroidism. CONSTITUTIONAL: As mentioned earlier. DERMATOLOGY: Negative. RHEUMATOLOGY: Negative. PSYCHIATRIC: As mentioned earlier. PHYSICAL EXAM: Patient is alert, oriented x3. The pulse is 105. Blood pressure 120/87. Respirations 18. Temperature 97.9, pulse ox 97% on room air. HEENT: Conjunctivae normal. CARDIOVASCULAR: S1, S2 muffled. No S3, no S4. RESPIRATORY: Breath sounds diminished in the bases. A few scattered rhonchi and crackles. ABDOMEN: Soft, nontender. No mass palpable. LEGS: No edema. No swelling. NERVOUS SYSTEM: Higher functions as mentioned earlier. Moves all four limbs. No focal deficits. SKIN: No ulcer, no rashes and no bleeding. JOINTS: No active deforming arthropathy. LABS: WBC 11.8, troponin 0.013, glucose 108. The EKG which was personally reviewed by me showed atrial fibrillation with rapid ventricular rate. The chest x-ray which was personally reviewed by me showed increased bronchovascular markings. ASSESSMENT: 1. Chest pain possible unstable angina. 2. Atrial fibrillation with fast ventricular rate. 3. History of recent negative stress test with evidence of prior infarct with pharmacologically induced left ventricular ischemia in the janett-infarct area. 4. Chronic obstructive pulmonary disease. 5. Myocardial infarction. 6. History of seizure disorder. 7. History of degenerative joint disease. 8. History of coronary artery disease/stent. 10.History of depression. 11.History of continued ongoing nicotine dependence. 12.History of THC. 13.Mitral valve replacement. RECOMMENDATIONS AND DISCUSSION: In this 63-year-old gentleman who presented with multiple complex medical issues, we will monitor the patient closely, continue the current medications, management and symptomatic treatment. Rule out myocardial infarction. Closely follow with Cardiology. The patient had recent negative stress test. The patient might require a cardiac catheterization to further elucidate the nature of the pain. Otherwise, I would recommend resume the home medications and provide symptomatic management. Continue with antiplatelet agents. Overall prognosis is extremely guarded. I would also order a 2D echo also. Overall prognosis guarded because of multiple complex medical issues. Further recommendations to follow. The patient also had a subtherapeutic INR, possibly noncompliant with Coumadin. We will continue to monitor. Prognosis guarded. Further recommendations to follow. A copy of this dictation being forwarded to Dr. Weber who is the primary physician. We will continue to monitor and we will initiate Cardizem drip. Heart rate is uncontrolled. See orders for details. MMODL / IJN: [id number] / MTDD
[2019-05-07 07:07] LABS: Basophils % (A) 0 %; Eosinophils # (A) 0.4 k/uL (0-0.7); Eosinophils % (A) 3 %; HGB 14.4 gm/dL (13.0-17.5); Lymphocytes # (A) 3.7 k/uL (1.0-4.8); Lymphocytes % (A) 32 %; MCH 31.6 pg (25.0-35.0); MCHC 33.4 g/dL (31.0-37.0); MCV 94.4 fL (80.0-100.0); Mean Platelet Volume 8.2; Monocytes # (A) 0.6 k/uL (0-1.0); Monocytes % (A) 5 %; Neutrophils # (A) 6.7 k/uL (1.3-7.7); Neutrophils % (A) 58 %; Platelet Count 192 k/uL (150-450); RBC 4.56 m/uL (4.30-5.90); RDW 13.7 % (11.5-15.5); WBC 11.7 k/uL (3.8-10.6)
[2019-05-07 07:08] LABS: INR 1.3 (<1.2); Prothrombin Time 13.4 sec (9.0-12.0)
[2019-05-07] MEDS ORDERED: PANTOPRAZOLE 40 MG TABLET PO SCH (07:30)
[2019-05-07 07:40] VITALS: RESP 18
[2019-05-07 08:04] LABS: African American GFR (CKD) >90 (>60 ml/min/1.73 sqM); Anion Gap 7 mmol/L; Blood Urea Nitrogen 24 mg/dL (9-20); Calcium 8.6 mg/dL (8.4-10.2); Carbon Dioxide 23 mmol/L (22-30); Chloride 107 mmol/L (98-107); Cholesterol 133 mg/dL (<200); Glucose 94 mg/dL (74-99); HDL Cholesterol 36 mg/dL (40-60); LDL Cholesterol,Calculated 79 mg/dL (0-99); Non-African American GFR(CKD) >90 (>60 ml/min/1.73 sqM); Potassium 3.8 mmol/L (3.5-5.1); Sodium 137 mmol/L (137-145); Triglycerides 92 mg/dL (<150)
[2019-05-07] MEDS ORDERED: METOPROLOL TARTRATE 12.5 MG TAB PO SCH (09:00)
[2019-05-07] MEDS ORDERED: ASPIRIN 325 MG TAB PO SCH (09:00)
[2019-05-07] MEDS ORDERED: METOPROLOL TARTRATE 25 MG TAB PO SCH (09:00)
[2019-05-07] MEDS ORDERED: CLOPIDOGREL 75 MG TAB PO SCH (09:00)
[2019-05-07] MEDS ORDERED: AMIODARONE 200 MG TAB PO SCH (09:00)
[2019-05-07] MEDS ORDERED: ASPIRIN 81 MG PO SCH (09:00)
[2019-05-07] MEDS: DIVALPROEX 500 MG TABLET.DR PO SCH (09:10)
--- NOTE | 2019-05-07 09:11 | CONS ---
CONSULTATION Valdemar Vann is a 63-year-old gentleman with a known history of CAD, prior PCI. He also has history of paroxysmal atrial fibrillation. He was advised to have electrical cardioversion, but converted to sinus rhythm before the procedure. He comes in with complaints of sharp pains in the chest lasting a few seconds. The quality of his chest discomfort is quite atypical. However, he was in atrial fibrillation at a rate of about 120 beats per minute. He remains in atrial fibrillation but since we increase the beta will, his heart rate is much better. His main complaint when he came in was sharp pains in the chest and some palpitations, both of which have improved. His troponins are normal. He is resting comfortably. I increased the beta will and rate control is optimal. It is unfortunate that this patient has stopped taking Coumadin appropriately, although he claims he is taking it. His INR is only 1.1. He was initially placed on Eliquis but he had some issues with Eliquis including financial issues and therefore this was stopped. He has no chest discomfort and at the time of my evaluation is resting comfortably. In February 2018, I performed stenting of mid LAD with a drug-eluting stent. He is known to have had RCA PCI in 2001 and this was with a bare metal stent. Cardiac cath in February 2018 revealed that his right coronary artery was occluded. LAD was also totally occluded in the distal portion, but there was a mid lesion which was about 70% and there was a lot of septal branches and this mid LAD was stented. Circumflex was free of significant disease and there was rich network of collaterals opacifying the distal branches of RCA. The patient's stress test revealed mild area of janett-infarct ischemia on April 19 and from a coronary disease standpoint, we have decided that we will pursue medical therapy and he has not had any angina. However, when the heart rate goes up, he does have some symptoms of chest discomfort. I have also spent a lot of time stressing the importance of anticoagulation given his previous history of stroke and paroxysmal atrial fibrillation. PAST MEDICAL HISTORY: 1. CAD with prior PCI of RCA that this has since been totally occluded and mid LAD. 2. Hypertension. 3. Paroxysmal atrial fib. 4. History of smoking and chronic obstructive pulmonary disease. MEDICATIONS: At home include Coumadin, which I am not sure he is taking it correctly, metoprolol tartrate 12.5 mg daily, Plavix 75 mg daily, Coumadin 5 mg daily, Zestril 2.5 mg at bedtime, Imdur 30 mg daily, atorvastatin 80 mg daily, and albuterol inhaler. ALLERGIES: HE CLAIMS HE HAS ALLERGY TO ELIQUIS, details are unclear and unsubstantiated. PHYSICAL EXAMINATION: Blood pressure is 118/70, pulse rate is 80 per minute, irregular. HEENT unremarkable. Fundus was not examined by me. NECK is supple. There is no JVD. I do not hear a carotid bruit. HEART exam reveals S1, S2 heard normally. There is a short systolic murmur. Irregular rhythm noted. LUNGS reveal diminished air entry. ABDOMEN is soft. Lower extremity with normal pulses. No edema. CENTRAL NERVOUS SYSTEM is normal. IMPRESSION: 1. Paroxysmal atrial fibrillation, rate control is optimal. 2. Coronary artery disease, stable with prior PCI. 3. History of hypertension. 4. History of smoking. RECOMMENDATIONS: I am recommending amiodarone 200 mg b.i.d. and discontinue the Coumadin and put him on Xarelto 20 mg daily, and he can be discharged on Xarelto and I will see him in the office in 2 weeks. I explained to the patient the importance of anticoagulation. MMODL / IJN: [id number] /
[2019-05-07] MEDS: NITROGLYCERIN OINT 1 INCH/GM PACKET TOPICAL SCH (09:21)
[2019-05-07] MEDS ORDERED: RIVAROXABAN 20 MG TAB PO SCH (09:30)
[2019-05-07 11:00] VITALS: BP 121/84; PULSE 67; TEMP 97.9
[2019-05-07] MEDS ORDERED: MAG HYDROX/AL HYDROX/SIMETH 30 ML CUP PO STA (11:45)
[2019-05-07] MEDS ORDERED: HYDROCHLOROTHIAZIDE 25 MG TAB PO SCH (12:00)
--- NOTE | 2019-05-08 05:51 | DS ---
DISCHARGE SUMMARY DATE OF SERVICE: 05/07/2019 FINAL DIAGNOSES: 1. Chest pain, myocardial infarction ruled out. 2. Atrial fibrillation with fast ventricular rate, rate controlled. 3. History of recent negative stress test with evidence of prior infarct with pharmacologically induced left ventricle ischemia in the janett-infarct area. 4. Chronic obstructive pulmonary disease. 5. Myocardial infarction. 6. History of seizure disorder. 7. History of degenerative joint disease. 8. History of coronary artery disease, stent. 9. History of depression. 10.History of continued ongoing nicotine dependence. 11.History of THC. 12.Mitral valve replacement. DISCHARGE DISPOSITION: The patient will be discharged in stable condition with guarded prognosis. Discharge cleared by Cardiology. HISTORY OF PRESENT ILLNESS: This 63-year-old gentleman with past medical history of multiple medical problems admitted with chest pain and multiple other medical issues as mentioned earlier. The patient was monitored closely. INR was only 1.1. Eliquis was initiated by Cardiology. On exam, vitals are stable. CARDIOVASCULAR: S1, S2 muffled. ABDOMEN: Soft. NERVOUS SYSTEM: No focal deficits. Cardiology recommended amiodarone 200 mg as well as Xarelto. DISCHARGE ADVICE: 1. Diet is cardiac. 2. Activity limited until followup. 3. Follow up with Dr. Weber in 1 to 2 days. 4. Follow up with Cardiology as recommended. Medications are: 1. Ambien 10 mg at bedtime, p.r.n. 2. Depakote 500 mg p.o. b.i.d. 3. HydroDIURIL 25 mg p.o. daily. 4. Imdur ER 30 mg p.o. daily. 5. Lipitor 80 mg at bedtime. 6. Plavix 75 mg p.o. daily. 7. Albuterol 2 puffs q.i.d. p.r.n. 8. Zestril to 2.5 mg at bedtime. 9. Cordarone 200 mg p.o. b.i.d. 10.Further dosing outpatient per Cardiology. 11.Lopressor 25 mg p.o. b.i.d. 12.Nitrostat p.r.n. 13.Xarelto 20 mg with supper. Once again, the patient will be discharged in a stable condition with guarded prognosis. MMODL / IJN: [id number] /
== END 2019-05-07 16:15 | disposition home or self-care (01) ==
LOC: EC 11:00 → 1SOBS 13:11
PROVIDERS: ADMIT Hospitalist; ATTEND Hospitalist
DX: R07.9 Chest pain, unspecified (principal); I48.0 Paroxysmal atrial fibrillation; F17.200 Nicotine dependence, unspecified, uncomplicated; I10 Essential (primary) hypertension; E78.00 Pure hypercholesterolemia, unspecified; Z95.5 Presence of coronary angioplasty implant and graft; J44.9 Chronic obstructive pulmonary disease, unspecified; I25.2 Old myocardial infarction; G40.909 Epilepsy, unspecified, not intractable, without status epilepticus; I25.10 Atherosclerotic heart disease of native coronary artery without angina pectoris; Z86.73 Personal history of transient ischemic attack (TIA), and cerebral infarction without residual deficits; F32.9 Major depressive disorder, single episode, unspecified; M19.90 Unspecified osteoarthritis, unspecified site; Z95.4 Presence of other heart-valve replacement; Z82.49 Family history of ischemic heart disease and other diseases of the circulatory system; Z83.3 Family history of diabetes mellitus; Z82.3 Family history of stroke; Z79.01 Long term (current) use of anticoagulants; Z79.02 Long term (current) use of antithrombotics/antiplatelets; Z79.899 Other long term (current) drug therapy; Z88.8 Allergy status to other drugs, medicaments and biological substances
CPT/HCPCS: 93005 ×3; 96365; 96366 ×2; 96376; 99291; 36415; 94640; 80061; 80053; 80048; 83735; 84484; 85025 ×2; 85610 ×2; 85730 ×2; 71046; G0378 ×2; J1644 ×2

== ENCOUNTER 2019-05-20 23:46 | Emergency (ER) | payer MEDICARE ==
[2019-05-20 23:55] VITALS: TEMP 97.5
[2019-05-21 00:47] LABS: Basophils % (A) 0 %; Eosinophils # (A) 0.5 k/uL (0-0.7); Eosinophils % (A) 5 %; HCT 39.2 % (39.0-53.0); HGB 13.3 gm/dL (13.0-17.5); Lymphocytes # (A) 3.8 k/uL (1.0-4.8); Lymphocytes % (A) 37 %; MCH 32.3 pg (25.0-35.0); Mean Platelet Volume 8.6; Monocytes # (A) 0.6 k/uL (0-1.0); Monocytes % (A) 6 %; Neutrophils % (A) 49 %; Platelet Count 190 k/uL (150-450); RBC 4.12 m/uL (4.30-5.90); RDW 13.8 % (11.5-15.5); WBC 10.3 k/uL (3.8-10.6)
--- NOTE | 2019-05-21 00:50 | XR ---
EXAMINATION TYPE: XR chest 2V DATE OF EXAM: 05/21/2019 COMPARISON: 05/06/2019 HISTORY: Epigastric pain TECHNIQUE: FINDINGS: Heart and mediastinum are normal. Lungs are clear. Diaphragm is normal. Bony thorax appears normal. There are chest leads. IMPRESSION: Normal chest. No change.
[2019-05-21 00:59] LABS: ALT 17 U/L (4-49); AST 26 U/L (17-59); African American GFR (CKD) >90 (>60 ml/min/1.73 sqM); Albumin 4.5 g/dL (3.5-5.0); Alkaline Phosphatase 69 U/L (38-126); Anion Gap 7 mmol/L; Blood Urea Nitrogen 27 mg/dL (9-20); Calcium 9.1 mg/dL (8.4-10.2); Carbon Dioxide 29 mmol/L (22-30); Chloride 100 mmol/L (98-107); Glucose 100 mg/dL (74-99); INR 1.3 (<1.2); Non-African American GFR(CKD) 85 (>60 ml/min/1.73 sqM); Partial Thromboplastin Time 35.6 sec (22.0-30.0); Potassium 3.9 mmol/L (3.5-5.1); Prothrombin Time 13.1 sec (9.0-12.0); Sodium 136 mmol/L (137-145); Total Bilirubin 0.3 mg/dL (0.2-1.3)
--- NOTE | 2019-05-21 01:11 | ED ---
General Adult HPI - General Chief complaint: Allergic Reaction Stated complaint: stomach pain/cough Time Seen by Provider: 05/21/19 00:04 Source: patient, family Mode of arrival: ambulatory Limitations: no limitations - History of Present Illness Initial comments: Valdemar is a pleasant 63-year-old gentleman with history of hypertension, hyperlipidemia and atrial fibrillation who presents the emergency department today for evaluation of a cough. Patient was admitted to the hospital in April and had a cardiac workup at which time his medications were changed. Patient was prescribed [place] her own, his metoprolol dose was increased to 25 mg twice a day and his lisinopril was increased. Patient reports that since discharge from the hospital he's had a persistent nonproductive cough. Patient denies any chest pain palpitations or shortness of breath but has become irritated by the cough reports that his throat is getting sore from coughing she decided come to the ER for evaluation. Patient denies any associated fevers chills nausea vomiting or illness. He reports he's feeling fine the cough is persistent and he has a grandson at home he doesn't want to get sick. - Related Data Home Medications Medication Instructions Recorded Confirmed Atorvastatin [Lipitor] 80 mg PO HS 03/02/18 05/06/19 Divalproex Sodium [Depakote] 500 mg PO BID 03/02/18 05/06/19 Isosorbide Mononitrate ER [Imdur] 30 mg PO DAILY@1200 03/02/18 05/06/19 Albuterol Sulfate [Ventolin HFA] 2 puff INHALATION RT-QID PRN 04/03/19 05/06/19 Hydrochlorothiazide [Hydrodiuril] 25 mg PO DAILY@1200 04/03/19 05/06/19 Lisinopril [Zestril] 2.5 mg PO HS 04/03/19 05/06/19 Clopidogrel Bisulfate [Plavix] 75 mg PO DAILY 05/06/19 05/06/19 Zolpidem Tartrate [Ambien] 10 mg PO HS PRN 05/06/19 05/06/19 Previous Rx's Medication Instructions Recorded Nitroglycerin Sl Tabs [Nitrostat] 0.4 mg SUBLINGUAL Q5M PRN #15 tab 03/04/18 Amiodarone [Cordarone] 200 mg PO BID #28 tab 05/07/19 Metoprolol Tartrate [Lopressor] 25 mg PO BID #60 tab 05/07/19 Rivaroxaban [Xarelto] 20 mg PO W/SUPPER #30 tab 05/07/19 Allergies Allergy/AdvReac Type Severity Reaction Status Date / Time apixaban [From Eliquis] Allergy Unknown Verified 05/20/19 23:55 Review of Systems ROS Statement: Those systems with pertinent positive or pertinent negative responses have been documented in the HPI. ROS Other: All systems not noted in ROS Statement are negative. Past Medical History Past Medical History: COPD, Myocardial Infarction ([place]), Seizure Disorder Additional Past Medical History / Comment(s): 3 ruptured spine discs, 2 heart stents, stroke. VISION CHANGES, mitral valve placements. Last Myocardial Infarction Date:: 2002 History of Any Multi-Drug Resistant Organisms: None Reported Past Surgical History: Heart Catheterization With Stent Additional Past Surgical History / Comment(s): PCIs with stents Past Anesthesia/Blood Transfusion Reactions: Unable to Obtain Additional Past Anesthesia/Blood Transfusion Reaction / Comment(s): Pt has never had general anesthesia Date of Last Stent Placement:: 01/2019 Past Psychological History: Depression Smoking Status: Current every day smoker Past Alcohol Use History: Occasional Past Drug Use History: Marijuana - Past Family History Mother Family Medical History: Congestive Heart Failure (CHF), CVA/TIA, Diabetes Mellitus Additional Family Medical History / Comment(s): Mother of CHF/pneumonia at the age of 64 yrs. Father Family Medical History: Congestive Heart Failure (CHF), Myocardial Infarction ([place]) Additional Family Medical History / Comment(s): Father of a massive [place] at the age of 54yrs. General Exam - General Exam Comments Initial Comments: Physical Exam GENERAL: Patient is well-developed and well-nourished. Patient is nontoxic and well-hydrated and is in no distress. Stigmata of cigarette smoking including tobacco staining of his facial hair and hands HENT: Normocephalic, Atraumatic. EYES: PERRL, EOMI PULMONARY: Unlabored respirations. No audible rales rhonchi or wheezing was noted. CARDIOVASCULAR: Bradycardic, regular ABDOMEN: Soft and nontender with normal bowel sounds. SKIN: Skin is clear with no lesions or rashes and otherwise unremarkable. : Deferred NEUROLOGIC: Patient is alert and oriented x3. Moving all extremities spontaneously MUSCULOSKELETAL: Normal extremities with adequate strength and full range of motion. No lower extremity swelling or edema. No calf tenderness. PSYCHIATRIC: Normal psychiatric evaluation. Limitations: no limitations Course Vital Signs 05/20/19 05/21/19 05/21/19 23:51 00:16 01:40 Temperature 97.5 F L Pulse Rate 53 L 68 Respiratory 20 24 16 Rate Blood Pressure 152/87 148/87 O2 Sat by Pulse 98 98 Oximetry EKG Findings - EKG Comments: EKG Findings:: EKG obtained due to patient's cardiac history and bradycardia cardiac, EKG was obtained at 12:13 AM, rate is 50 rhythm is sinus there is normal axis, KS is 178, cure his knee 4, QTC prolonged at [address] elevations or depressions no evidence of acute ischemia or infarction. Medical Decision Making - Medical Decision Making The patient was seen and evaluated history is obtained from patient and review of medical record 63-year-old male with hypertension hyperlipidemia and atrophic relation recently prescribed amiodarone and had his lisinopril dose increased as well as his metoprolol dose increased. Patient presents with a nonproductive cough, no other signs of infectious disease, patient was noted to be bradycardic. Patient reports that his heart rate has been slow since he doubled his metoprolol and was prescribed amiodarone. Lab workup was negative for any acute findings Chest x-ray was unremarkable no signs of pneumonia Results were discussed with the patient, etiology of a nonproductive dry cough was discussed with patient, side effect of amiodarone versus lisinopril, advised the patient to discontinue lisinopril is likely causing the nonproductive dry hacking cough. I also advised the patient to decrease his metoprolol to 1 pill daily due to bradycardia. Patient expressed understanding and agreement with this plan. 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 All questions pertaining care were answered return parameters were discussed patient with discharged home in stable condition. - Lab Data Result diagrams: 05/21/19 00:32 05/21/19 00:32 Lab Results 05/21/19 05/21/19 05/21/19 Range/Units 00:32 00:32 00:32 WBC 10.3 (3.8-10.6) k/uL RBC 4.12 L (4.30-5.90) m/uL Hgb 13.3 (13.0-17.5) gm/dL Hct 39.2 (39.0-53.0) % MCV 95.0 (80.0-100.0) fL MCH 32.3 (25.0-35.0) pg MCHC 34.0 (31.0-37.0) g/dL RDW 13.8 (11.5-15.5) % Plt Count 190 (150-450) k/uL Neutrophils % 49 % Lymphocytes % 37 % Monocytes % 6 % Eosinophils % 5 % Basophils % 0 % Neutrophils # 5.0 (1.3-7.7) k/uL Lymphocytes # 3.8 (1.0-4.8) k/uL Monocytes # 0.6 (0-1.0) k/uL Eosinophils # 0.5 (0-0.7) k/uL Basophils # 0.0 (0-0.2) k/uL PT 13.1 H (9.0-12.0) sec INR 1.3 H (<1.2) APTT 35.6 H (22.0-30.0) sec Sodium 136 L (137-145) mmol/L Potassium 3.9 (3.5-5.1) mmol/L Chloride 100 (98-107) mmol/L Carbon Dioxide 29 (22-30) mmol/L Anion Gap 7 mmol/L BUN 27 H (9-20) mg/dL Creatinine 0.96 (0.66-1.25) mg/dL Est GFR (CKD-EPI)AfAm >90 (>60 ml/min/1.73 sqM) Est GFR (CKD-EPI)NonAf 85 (>60 ml/min/1.73 sqM) Glucose 100 H (74-99) mg/dL Calcium 9.1 (8.4-10.2) mg/dL Total Bilirubin 0.3 (0.2-1.3) mg/dL AST 26 (17-59) U/L ALT 17 (4-49) U/L Alkaline Phosphatase 69 (38-126) U/L Total Protein 7.0 (6.3-8.2) g/dL Albumin 4.5 (3.5-5.0) g/dL Disposition Clinical Impression: Cough due to GARRETT inhibitor, Bradycardia Disposition: HOME SELF-CARE Condition: Stable Additional Instructions: Stop taking Lisinopril Decrease your metoprolol to 1x daily Follow up with your primary care doctor or fiberglass boat finisher on Wednesday to discuss management of your blood pressure and medication side effects Is patient prescribed a controlled substance at d/c from ED?: No Referrals: Felipa Weber MD [Primary Care Provider] - 1-2 days
[2019-05-21 01:40] VITALS: BP 148/87; PULSE 68; RESP 16
== END 2019-05-21 01:40 | disposition home or self-care (01) ==
LOC: EC 23:46
DX: R05 Cough (principal); T46.4X5A Adverse effect of angiotensin-converting-enzyme inhibitors, initial encounter; R00.1 Bradycardia, unspecified; I10 Essential (primary) hypertension; E78.5 Hyperlipidemia, unspecified; R10.9 Unspecified abdominal pain; J44.9 Chronic obstructive pulmonary disease, unspecified; I25.2 Old myocardial infarction; G40.909 Epilepsy, unspecified, not intractable, without status epilepticus; F32.9 Major depressive disorder, single episode, unspecified; F17.200 Nicotine dependence, unspecified, uncomplicated; Z86.73 Personal history of transient ischemic attack (TIA), and cerebral infarction without residual deficits; Z95.818 Presence of other cardiac implants and grafts; Z95.2 Presence of prosthetic heart valve; Z95.5 Presence of coronary angioplasty implant and graft; Z79.02 Long term (current) use of antithrombotics/antiplatelets; Z79.899 Other long term (current) drug therapy; Z88.8 Allergy status to other drugs, medicaments and biological substances
CPT/HCPCS: 36415; 71046; 80053; 85025; 85610; 85730; 99284

== ENCOUNTER → 2021-07-21 | Outpatient (CLI) | payer MEDICARE ==
--- NOTE | 2021-07-21 21:39 | MR ---
EXAMINATION TYPE: MR brain wo/w con DATE OF EXAM: 07/21/2021 COMPARISON: MRI brain June 04, 2011 HISTORY: Headaches, dizziness, hx subarachnoid cyst. TECHNIQUE: Multiplanar, multisequence images of the brain and brainstem is performed without and with IV contras t, utilizing 9 mL intravenous Gadavist . FINDINGS: Diffusion weighted images demonstrate no evidence of a recent infarct or other diffusion ab normality. Mild ventricular and sulcal prominence. Septum pellucidum vergae is redemonstrated. Scatte red foci of T2 hyperintensity are seen throughout the white matter bilaterally with approximately 60- 70 scattered lesions. Lesions are nonspecific in appearance and distribution. There is persistent lar ge area isodense to CSF involving the left anterior middle cranial fossa extending superiorly measuri ng approximately 4.0 x 4.0 x cyst and 7.0 cm coronal image 27 and axial image 12 consistent with mode rate to large size arachnoid cyst. There is additional prominent CSF posterior aspect posterior fossa measuring roughly 2.0 cm transversely x 6.0 cm craniocaudal dimension suspicious for smaller arachno id cyst with local mass effect on the the draining dural venous sinuses similar to prior. Midline structures redemonstrate normal morphology. The craniocervical junction remains within norm al limits. Post contrast images demonstrate no abnormal enhancement. The dural venous sinuses appear patent. The visualized sinuses are clear and the globes are intact. No suspicious fluid signal bilat eral mastoid air cells. IMPRESSION: Mild diffuse cerebral atrophy and advanced nonspecific white matter changes redemonstrate d. Interval progression in the latter is noted from 2012 MRI. Stable moderate to large anterior middl e cranial fossa left arachnoid cyst with local mass effect and smaller posterior aspect posterior fos sa arachnoid cyst or lynn cisterna magna stable from prior.
== END | disposition home or self-care (01) ==
LOC: RADMRIMAIN 15:15
PROVIDERS: ATTEND Family Medicine
DX: G93.0 Cerebral cysts (principal); G31.9 Degenerative disease of nervous system, unspecified; R90.82 White matter disease, unspecified
CPT/HCPCS: 70553; A9585

== ENCOUNTER → 2022-08-11 | Outpatient (CLI) | payer MEDICARE ==
--- NOTE | 2022-08-11 14:54 | CT ---
EXAMINATION TYPE: CT sinus wo con CT DLP: 787 mGycm, Automated exposure control for dose reduction was used. DATE OF EXAM: 08/11/2022 1:29 PM COMPARISON: Brain CT 03/02/2018, MRI 08/08/2021 CLINICAL INDICATION:Male, 67 years old with history of J32.0, chronic maxillary sinusitis TECHNIQUE: Multiple thin axial images were obtained through the paranasal sinuses without the use of IV contrast. Additional coronal and sagittal reformatted images were submitted for evaluation. Contrast used: , none Oral contrast used: none FINDINGS: Frontal sinuses: Normally developed and aerated. Frontal Recess: Clear Maxillary Sinuses: Normally developed with minimal mucosal thickening of the maxillary sinuses but pr esent. Maxillary Infundibula([facility]): Clear, No Keyona cells identified. Osseous spurring on the inferior aspe ct of the orbits near the infundibulum bilaterally. Ethmoid sinuses: Normally developed and aerated. Ethmoidal notch: Unprotected bilateral anterior ethm oidal arteries. Modified [place]-Cally Score: Sphenoid sinuses: Normally developed and aerated. There is sellar sphenoid sinus pneumatization witho ut evidence of dehiscence. No dehiscence of carotid canal. No evidence of optic nerve dehiscence wit hin the sphenoid sinus. Sphenoethmoidal recesses: Clear. Nasal septum: Within normal limits.. Nasal Turbinates: Within normal limits. Mastoid air cells & middle ears: The air cells are clear. The middle ears are grossly unremarkable. Modified Soft tissues & Brain: Partially seen without gross abnormality. Globes are intact. Other: Cribriform plate demonstrates symmetric Keros classification type 2 cribriform plate. No evidence of bony dehiscence of skull base. Lamina papyracea is intact without evidence of remote orbital fracture or orbital prolapse into the e thmoid sinus. IMPRESSION: 1. No significant mucosal sinus disease. Maxillary sinuses are clear 2. The ostiomeatal units, frontonasal and sphenoethmoidal recesses are clear.
== END | disposition home or self-care (01) ==
LOC: RADCTMAIN 13:08
PROVIDERS: ATTEND Otolaryngology
DX: J32.0 Chronic maxillary sinusitis (principal)
CPT/HCPCS: 70486

== ENCOUNTER 2023-05-12 17:39 | Emergency (ER) | payer OTHER ==
--- NOTE | 2023-05-12 18:21 | ED ---
Eye Problem HPI - General Source: patient Mode of arrival: ambulatory Limitations: no limitations <Cyndy Patrick - Last Filed: 05/12/23 18:20> <Declan Churchill - Last Filed: 05/12/23 21:04> <David Matamoros - Last Filed: 05/12/23 21:48> - General Stated complaint: R eye vision loss Time Seen by Provider: 05/12/23 18:20 - History of Present Illness Initial comments: Patient is a 67-year-old gentleman who is in non-diabetic who presents emergency room with complaints of blurred vision, seeing floaters and sensitivity to the right eye. States it started 2 hours ago while doing dishes. Denies any complete loss of vision. Denies any trauma to the eye. He does have sensitivity to light and air. (Cyndy Patrick) 67-year-old male presented to the ED with a chief complaint of vision problem. Patient states over the past few days has had "flashes" of light in his right eye. States today had sudden onset of serve blurred vision lasting 5 minutes however states that since then notes improved blurred vision from his right eye. Denies a curtain like visual loss. No recent injury or trauma. No other complaints at this time. (David Matamoros) - Related Data Home Medications Medication Instructions Recorded Confirmed Atorvastatin [Lipitor] 80 mg PO HS 03/02/18 11/11/21 Isosorbide Mononitrate ER [Imdur] 30 mg PO DAILY@1200 03/02/18 11/11/21 Albuterol Sulfate [Ventolin HFA] 2 puff INHALATION RT-QID PRN 04/03/19 11/11/21 hydroCHLOROthiazide [Hydrodiuril] 25 mg PO DAILY@1200 04/03/19 11/11/21 Clopidogrel Bisulfate [Plavix] 75 mg PO Q48H 05/06/19 11/11/21 Amiodarone [Cordarone] 100 mg PO DAILY 11/11/21 11/11/21 Levothyroxine Sodium 25 mcg PO DAILY 11/11/21 11/11/21 Losartan [Cozaar] 50 mg PO HS 11/11/21 11/11/21 Previous Rx's Medication Instructions Recorded Nitroglycerin Sl Tabs [Nitrostat] 0.4 mg SUBLINGUAL Q5M PRN #15 tab 03/04/18 Rivaroxaban [Xarelto] 20 mg PO W/SUPPER #30 tab 05/07/19 Divalproex [Depakote] 500 mg PO BID 30 Days #60 tab 11/13/21 Metoprolol Tartrate [Lopressor] 50 mg PO BID 30 Days #60 tab 11/13/21 Allergies Allergy/AdvReac Type Severity Reaction Status Date / Time apixaban [From Eliquis] Allergy Patient is Verified 05/12/23 18:18 unsure dipyridamole Allergy Patient is Verified 05/12/23 18:18 [From Persantine] unsure Review of Systems ROS Other: All systems not noted in ROS Statement are negative. <Cyndy Patrick - Last Filed: 05/12/23 18:20> ROS Other: All systems not noted in ROS Statement are negative. <Declan Churchill - Last Filed: 05/12/23 21:04> ROS Other: All systems not noted in ROS Statement are negative. <David Matamoros - Last Filed: 05/12/23 21:48> ROS Statement: Those systems with pertinent positive or pertinent negative responses have been documented in the HPI. Past Medical History Past Medical History: COPD, CVA/TIA, Myocardial Infarction ([place]), Seizure Disorder Additional Past Medical History / Comment(s): 3 ruptured spine discs, 3 heart stents, stroke x2 (pt unsure of last stroke). VISION CHANGES, mitral valve placements. Last Myocardial Infarction Date:: 2002 History of Any Multi-Drug Resistant Organisms: None Reported Past Surgical History: Heart Catheterization With Stent Additional Past Surgical History / Comment(s): PCIs with stents Past Anesthesia/Blood Transfusion Reactions: No Reported Reaction Additional Past Anesthesia/Blood Transfusion Reaction / Comment(s): Pt has never had general anesthesia Date of Last Stent Placement:: 01/2019 Past Psychological History: Depression Smoking Status: Current every day smoker Past Alcohol Use History: Occasional Past Drug Use History: Marijuana - Past Family History Mother Family Medical History: Congestive Heart Failure (CHF), CVA/TIA, Diabetes Mellitus Additional Family Medical History / Comment(s): Mother of CHF/pneumonia at the age of 64 yrs. Father Family Medical History: Congestive Heart Failure (CHF), Myocardial Infarction ([place]) Additional Family Medical History / Comment(s): Father of a massive [place] at the age of 54yrs. <Cyndy Patrick - Last Filed: 05/12/23 18:20> General Exam Limitations: no limitations <Cyndy Patrick - Last Filed: 05/12/23 18:20> General appearance: alert, in no apparent distress Eye exam: Present: normal appearance, PERRL, EOMI Pupils: Present: other (No hyphema. No peripheral visual field loss. Ocular pressure 15 right, 15 left. 20/70 in the right eye, 20/40 left eye.) Neck exam: Present: normal inspection Respiratory exam: Present: normal lung sounds bilaterally Cardiovascular Exam: Present: regular rate, normal rhythm GI/Abdominal exam: Present: soft Neurological exam: Present: alert, oriented X3 Skin exam: Present: warm, dry <David Matamoros - Last Filed: 05/12/23 21:48> - General Exam Comments Initial Comments: Visual Physical Exam Vital signs reviewed General: Well-appearing, nontoxic, no acute distress. Head: Normocephalic, atraumatic Eyes: PERRLA, EOMI ENT: Airway patent Chest: Nonlabored breathing Skin: No visual rash, normal skin tone Neuro: Alert and oriented 3 Musculoskeletal: No gross abnormalities (Cyndy Patrick) Course <Declan Churchill - Last Filed: 05/12/23 21:04> Vital Signs 05/12/23 18:14 Temperature 98.2 F Pulse Rate 56 L Respiratory 18 Rate Blood Pressure 149/79 O2 Sat by Pulse 98 Oximetry - Reevaluation(s) Reevaluation #1: 05/12/23 21:04 Patient evaluated and bedside ultrasound of the right globe was performed. I do not see any linear abnormalities in the posterior globe to suggest retinal detachment. His visual duncan are intact. Extraocular motions intact. (Declan Churchill) Medical Decision Making <Cyndy Patrick - Last Filed: 05/12/23 18:20> <David Matamoros - Last Filed: 05/12/23 21:48> - Medical Decision Making Quick note portion completed by myself, electronically signed Cyndy Patrick, PAC (Cyndy Patrick) Was pt. sent in by a medical professional or institution (TANVI Paul, WEB SYSTEMS DEVELOPER, urgent care, hospital, or intermediate...) When possible be specific @ -No Did you speak to anyone other than the patient for history (EMS, parent, family, police, friend...)? What history was obtained from this source @ -No Did you review nursing and triage notes (agree or disagree)? Why? @ -I reviewed and agree with nursing and triage notes Were old charts reviewed (outside hosp., previous admission, EMS record, old EKG, old radiological studies, urgent care reports/EKG's, intermediate records)? Report findings @ -No old charts were reviewed Differential Diagnosis (chest pain, altered mental status, abdominal pain women, abdominal pain men, vaginal bleeding, weakness, fever, dyspnea, syncope, headache, dizziness, GI bleed, back pain, seizure, CVA, palpatations, mental health, musculoskeletal)? @ -Retinal detachment, retinal artery occlusion, retinal vein occlusion, open angle glaucoma. Is not meant to be an all-inclusive list. EKG interpreted by me (3pts min.). @ -None X-rays interpreted by me (1pt min.). @ -None done CT interpreted by me (1pt min.). @ -None done U/S interpreted by me (1pt. min.). @ -None done What testing was considered but not performed or refused? (CT, X-rays, U/S, labs)? Why? @ -None What meds were considered but not given or refused? Why? @ -None Did you discuss the management of the patient with other professionals (aden ramirez i.e. TANVI Paul, WEB SYSTEMS DEVELOPER, lab, RT, psych nurse, adoption social worker, welding systems and equipment repairer, teacher, compliance officer, rifle case repairer)? Give summary @ -No Was smoking cessation discussed for >3mins.? @ -No Was critical care preformed (if so, how long)? @ -No Were there social determinants of health that impacted care today? How? (Homelessness, low income, unemployed, alcoholism, drug addiction, transportation, low edu. Level, literacy, decrease access to med. care, snf, rehab)? @ -No Was there de-escalation of care discussed even if they declined (Discuss DNR or withdrawal of care, Hospice)? DNR status @ -No What co-morbidities impacted this encounter? (DM, HTN, Smoking, COPD, CAD, Cancer, CVA, ARF, Chemo, Hep., AIDS, mental health diagnosis, sleep apnea, morbid obesity)? @ -None Was patient admitted / discharged? Hospital course, mention meds given and route, prescriptions, significant lab abnormalities, going to OR and other pertinent info. @ -Discharge 67-year-old male presents ED with blurred vision of the right eye. Bedside ocular ultrasound of the right eye was performed by my attending physician, Dr. Churchill. Ultrasound did show evidence of vitreous hemorrhage. Unable to vis ualize any retinal flap. At this time vital signs stable afebrile. Exam showed no peripheral visual field loss. No hyphema. Ocular pressure 15 right, 15 left. Discharged home in stable condition with referral to see ophthalmology. Discussed strict return precautions with patient who verbalized agreement. Undiagnosed new problem with uncertain prognosis? @ -No Drug Therapy requiring intensive monitoring for toxicity (Heparin, Nitro, Insulin, Cardizem)? @ -No Were any procedures done? @ -No Diagnosis/symptom? @ -Blurred vision, right eye Acute, or Chronic, or Acute on Chronic? @ -Acute Uncomplicated (without systemic symptoms) or Complicated (systemic symptoms)? @ -Uncomplicated Side effects of treatment? @ -No Exacerbation, Progression, or Severe Exacerbation? @ -No Poses a threat to life or bodily function? How? (Chest pain, [place], [place], pneumonia, PE, COPD, DKA, ARF, appy, cholecystitis, CVA, Diverticulitis, Homicidal, Suicidal, threat to staff... and all critical care pts) @ -No (David Matamoros) Disposition <Cyndy Patrick - Last Filed: 05/12/23 18:20> <Declan Churchill - Last Filed: 05/12/23 21:04> Is patient prescribed a controlled substance at d/c from ED?: No Time of Disposition: 21:00 <David Matamoros - Last Filed: 05/12/23 21:48> Clinical Impression: Blurred vision Disposition: HOME SELF-CARE Condition: Good Additional Instructions: Please return to the Emergency Department if symptoms worsen or any other concerns. Please follow-up with ophthalmology. Referrals: Pierre Rodney MD [Primary Care Provider] - 1-2 days Valdemar Hill MD [STAFF PHYSICIAN] - 1-2 days
[2023-05-12 18:34] VITALS: BP 149/79; PULSE 56; RESP 18; TEMP 98.2
[2023-05-12] MEDS: PROPARACAINE 0.5% OPHTH DROPS 15 ML BTL RIGHT EYE STA (20:57)
[2023-05-12] MEDS: FLUORESCEIN STRIPS 1 MG STRIP RIGHT EYE ONE (20:57)
== END 2023-05-12 21:41 | disposition home or self-care (01) ==
LOC: EC 17:39
DX: H53.8 Other visual disturbances (principal); J44.9 Chronic obstructive pulmonary disease, unspecified; I25.2 Old myocardial infarction; F17.200 Nicotine dependence, unspecified, uncomplicated; F12.90 Cannabis use, unspecified, uncomplicated; Z86.59 Personal history of other mental and behavioral disorders; Z79.02 Long term (current) use of antithrombotics/antiplatelets
CPT/HCPCS: 99283

== ENCOUNTER → 2023-05-24 | Outpatient (CLI) | payer OTHER ==
--- NOTE | 2023-05-27 14:02 | MR ---
EXAMINATION TYPE: MR shoulder RT wo con DATE OF EXAM: 05/24/2023 COMPARISON: None HISTORY: Right shoulder pain with difficulty raising arm overhead approximately 4 months after slip a nd fall injury. TECHNIQUE: Multiplanar, multisequence imaging of the right shoulder is performed without contrast. FINDINGS: Suboptimal due to artifact, multiple repeat sequences were performed. Rotator Cuff: Intact supraspinatus and infraspinatus tendons. Some fluid surrounds the superior aspec t of the subscapularis tendon and muscle. Intact subscapularis tendon. Rotator cuff muscle bulk prese rved. Acromioclavicular Joint: Mild to moderate narrowing and mild spurring. [id number] superior caps ular hypertrophy. Loss of underlying fat plane. Type II downsloping acromion acromion also noted. Glenohumeral Joint: Tiny joint effusion. No significant spurring. Labrum: Increased signal superior labrum likely reflects degenerative tearing. Biceps Tendon: The long head of biceps is in normal location within bicipital groove. Bone marrow signal: No focal abnormal marrow signal is appreciated. Other: No additional significant abnormality is appreciated. IMPRESSION: 1. Type II downsloping acromion along with AC joint arthropathy with suggestion of underlying impinge ment. Correlate clinically. 2. Possible subtle tendinosis of the supraspinatus tendon. No retracted rotator cuff tear is seen. 3. Superior labral there is thought degenerative in etiology.
== END | disposition home or self-care (01) ==
LOC: RADMRIMAIN 13:58
PROVIDERS: ATTEND Family Medicine
DX: M19.011 Primary osteoarthritis, right shoulder (principal); M25.811 Other specified joint disorders, right shoulder